=== PATIENT | female | born 1945 | race Caucasian/White ===

== ENCOUNTER → 2019-10-15 14:46 | Outpatient (BNVA) | payer MEDICARE, SELFPAY | PROVIDERS: Family Provider Family Medicine; PCP Family Medicine; Visit Provider Nurse Practitioner | DX: M54.9 Dorsalgia, unspecified (principal); M62.838 Other muscle spasm; Z79.891 Long term (current) use of opiate analgesic | CPT/HCPCS: 99213 ==

== ENCOUNTER → 2019-12-19 13:50 | Outpatient (BNVA) | payer MEDICARE, SELFPAY | PROVIDERS: Family Provider Family Medicine; PCP Family Medicine; Visit Provider Anesthesiology | DX: Z76.89 Persons encountering health services in other specified circumstances (principal) | CPT/HCPCS: 99213 ==

== ENCOUNTER → 2020-03-12 14:18 | Outpatient (BNVA) | payer MEDICARE, SELFPAY | PROVIDERS: Family Provider Family Medicine; PCP Family Medicine; Visit Provider Anesthesiology | DX: M54.5 Low back pain (principal); M54.9 Dorsalgia, unspecified; M47.22 Other spondylosis with radiculopathy, cervical region; Z79.891 Long term (current) use of opiate analgesic | CPT/HCPCS: 99214 ==

== ENCOUNTER → 2020-05-14 10:51 | Outpatient (BNVA) | payer MEDICARE, SELFPAY | PROVIDERS: Family Provider Family Medicine; PCP Family Medicine; Visit Provider Nurse Practitioner | DX: M54.42 Lumbago with sciatica, left side (principal); M54.41 Lumbago with sciatica, right side; M54.9 Dorsalgia, unspecified; M47.22 Other spondylosis with radiculopathy, cervical region; M62.838 Other muscle spasm; Z79.891 Long term (current) use of opiate analgesic | CPT/HCPCS: 99213 ==

== ENCOUNTER → 2020-07-15 12:43 | Outpatient (BNVA) | payer MEDICARE, SELFPAY | PROVIDERS: Family Provider Family Medicine; PCP Family Medicine; Visit Provider Anesthesiology | DX: M47.22 Other spondylosis with radiculopathy, cervical region (principal); M54.9 Dorsalgia, unspecified; Z79.891 Long term (current) use of opiate analgesic | CPT/HCPCS: 99213; 99214 ==

== ENCOUNTER 2020-08-12 15:05 | Outpatient (CLI) | payer MEDICARE, SELFPAY ==
--- NOTE | 2020-08-12 15:10 | XR_ITS ---
WS: [id number] SCREENING DEXA SCAN Your Office Agent CLINICAL INFORMATION: ASYMPTOMATIC MENOPAUSAL STATE COMPARISON: FINDINGS: The L1-L4 bone mineral density measures 1.590 g/cm2. This corresponds to a T score score of 3.4 and Z score of 4.8. Left femoral neck bone mineral density measures 1.343 g/cm2. This corresponds to a T score of 2.7 and Z score of 4.0. Right femoral neck bone mineral density measures 1.314 g/cm2. This corresponds to a T score 2.4of and Z score of 3.8. Mean femoral neck bone mineral density measures 1.328 g/cm2. This corresponds to a T score of 2.5 and Z score of 3.9. XR/XR DEXA axial skeleton* [id number] IMPRESSION: Normal bone mineralization. Patient's FRAX calculated 10 year probability for major osteoporotic fracture i s 5.5 % and osteoporotic hip fracture is 0.2%.
== END 2020-08-12 15:06 | disposition home or self-care (01) ==
LOC: RADWPI 15:09
PROVIDERS: PCP Family Medicine; Visit Provider Family Medicine
DX: Z78.0 Asymptomatic menopausal state (principal)
CPT/HCPCS: 77080

== ENCOUNTER → 2020-09-10 11:03 | Outpatient (BNVA) | payer MEDICARE, SELFPAY | PROVIDERS: PCP Family Medicine; Visit Provider Nurse Practitioner | DX: M54.9 Dorsalgia, unspecified (principal); M47.22 Other spondylosis with radiculopathy, cervical region; Z79.899 Other long term (current) drug therapy; Z79.891 Long term (current) use of opiate analgesic | CPT/HCPCS: 99213 ==

== ENCOUNTER 2020-09-15 10:49 | Outpatient (CLI) | payer MEDICARE, SELFPAY ==
--- NOTE | 2020-09-15 10:53 | MM_ITS ---
WS: [id number] SCREENING DIGITAL MAMMOGRAM WITH CAD HISTORY: SCREENING COMPARISON: 09/12/2019 and 08/08/2018 Bilateral CC and MLO views submitted. Computer aided detection analyzed. Breast composition: There are scattered areas of fibroglandular density. No suspicious masses, microc alcifications or architectural distortion. MM/[place] [id number] IMPRESSION: BI-RADS: 1-Negative FOLLOW UP: 1 Year Follow-up
== END 2020-09-15 10:50 | disposition home or self-care (01) ==
LOC: RADSHAW 10:51
PROVIDERS: PCP Family Medicine; Visit Provider Family Medicine
DX: Z12.31 Encounter for screening mammogram for malignant neoplasm of breast (principal)
CPT/HCPCS: 77067

== ENCOUNTER → 2020-10-16 15:23 | Outpatient (BNVA) | payer MEDICARE, SELFPAY | PROVIDERS: PCP Family Medicine; Visit Provider Nurse Practitioner Family | DX: Z20.828 Contact with and (suspected) exposure to other viral communicable diseases (principal) | CPT/HCPCS: 87635 ==

== ENCOUNTER → 2020-11-12 10:59 | Outpatient (BNVA) | payer MEDICARE, SELFPAY | PROVIDERS: PCP Family Medicine; Visit Provider Nurse Practitioner | DX: M62.838 Other muscle spasm (principal); M47.22 Other spondylosis with radiculopathy, cervical region; M54.9 Dorsalgia, unspecified; Z79.899 Other long term (current) drug therapy; Z79.891 Long term (current) use of opiate analgesic | CPT/HCPCS: 99212; 99213 ==

== ENCOUNTER 2020-11-15 04:10 | Inpatient (IN) | payer MEDICARE, SELFPAY ==
[2020-11-15] VITALS (81 sets, daily range): BP systolic 81–153; BP diastolic 43–108; PULSE 58–80; RESP 10–30; TEMP 35.9–37.2; O2SAT 85–95; BMI 29.7
--- NOTE | 2020-11-15 04:15 | XR_ITS ---
WS: [id number] Exam: XR chest 1V portable [id number] Date/Time of Exam: 11/15/2020 6:20 AM Reason For Exam: cp Comparison 07/06/2017. Probable small left pleural effusion. The lungs are clear and fully inflated. Heart size is normal fo r AP technique. The mediastinum and bony thorax are unremarkable. XR/XR chest 1V portable [id number] IMPRESSION: 1. Oval small left pleural effusion. No other significant finding.
--- NOTE | 2020-11-15 04:17 | ECG_ITS ---
[facility] Test Date: 2020-11-15 Pat Name: Bernice Diez Department: Room: 104 Gender: Female Banquet Set Up Person: : 1945 Requested By: Hank Galan Order Number: [id number] Ryan MD: Patricia Ramos M.D. Measurements Intervals Pride Rate: 64 P: 63 OR: 225 QRS: 75 QRSD: 109 T: 91 QT: 433 QTc: 447 Interpretive Statements SINUS RHYTHM WITH FIRST DEGREE AV BLOCK LOW QRS VOLTAGE IN PRECORDIAL LEADS [QRS DEFLECTION < 1.0 mV IN CHEST LEADS] PROBABLE LATERAL MYOCARDIAL INFARCTION , OF INDETERMINATE AGE [35 ms Q WAVE IN I/aVL/V5/V6] INFERIOR MYOCARDIAL INFARCTION , OF INDETERMINATE AGE No previous ECG available for comparison Electronically Signed On 11-15-2020 12:39:39 TEAM LEADER by Patricia Ramos M.D. [id number]
[2020-11-15] MEDS: morphine 4 mg/mL SDV 1 mL IVP (04:22)
--- NOTE | 2020-11-15 04:22 | W.ED.CHESTPA ---
HPI - Chest Pain General: Chief Complaint: Chest Pain Stated Complaint: CP Time Seen by Provider: 11/15/20 04:15 History of Present Illness: HPI narrative: 75-year-old female presents from home by EMS. She has no prior history of coronary disease or diabetes. Began to have chest pressure around 1900 last night. This was at rest. She thought it was indigestion, and took some antacids. It seemed to go away for a while, but then came back. Pain worsened over the course of the evening out of concern she called EMS. On arrival she complained of significant chest pressure at home. She was given nitroglycerin by EMS, which resolved her pain for a short time. Pain was beginning to return on arrival here. She denies shortness of breath. She did get nauseated one time, no vomiting. No diaphoresis. No radiation of the pain. She has not had pain like this before. Associated symptoms: Reports nausea; Deny abdominal pain, dyspnea, fever(s), palpitations or vomiting Review of Systems Const: Denies: fever(s) or chills Eyes: Denies: change in vision ENMT: Denies: odynophagia, swelling of lips/tongue, post nasal drip or sinus pain Card: Reports: chest pain; Denies: palpitations, irregular heart rhythm, edema or swelling of feet/ankles Resp: Denies: dyspnea, productive cough, non-productive cough or wheezing GI: Reports: nausea; Denies: abdominal pain or vomiting : Denies: dysuria or hematuria Musc: Reports: back pain; Denies: neck pain or joint warmth Skin/Breast: Denies: rash or erythema Neuro: Denies: headache(s), dizziness or vertigo Psych: Denies: anxiety PFSH ED PFSH: Medical History Arthralgia, lumbar spine Encounter for long-term opiate analgesic use Long-term use of high-risk medication Surgical History History of suburethral sling procedure DR KRAMER 02/06/18 PORCINE GRAFT S/P cataract extraction S/P cholecystectomy S/P colectomy S/P total hysterectomy S/P tubal ligation Family History Mother Cancer LIVER CANCER Other Diabetes Hypertension Stroke Social History Smoking and tobacco status: former smoker Second hand smoke exposure: No Alcohol intake: never History of recent travel: No Female Reproductive History: Spontaneous abortions: No Physical Exam Const: GENERAL APPEARANCE: well developed ORIENTATION/CONSCIOUSNESS: Yes oriented to person, Yes oriented to place and Yes oriented to time HENMT: COMMON NORMALS: normocephalic, external ears normal and Normal external nose present HEAD & SCALP: normocephalic FACE & SINUS: normal facial exam NOSE: Normal external nose present and No nasal discharge present EXTERNAL EAR: Yes external ears normal MOUTH: tongue normal Eye: COMMON NORMALS: Equal, round and reactive pupils present, EOMs intact bilaterally and conjunctivae normal EYELID: eyelids normal CONJUNCTIVA: Yes conjunctivae normal PUPIL: Yes Equal, round and reactive pupils present Neck/C-Spine: GENERAL: No tracheal deviation Chest: COMMONS NORMALS: normal inspection of the chest CHEST: No tenderness Resp: COMMON NORMALS: clear to auscultation bilaterally EFFORT & INSPECTION: No tachypneic, No respiratory distress, No retractions, No uses accessory muscles and No tracheal deviation AUSCULTATION: clear to auscultation bilaterally, no rhonchi, no wheezes and lung sounds not diminished Cardio: COMMON NORMALS: regular rate and regular rhythm RATE: regular rate RHYTHM: regular rhythm HEART SOUNDS: no murmurs PERIPHERAL PULSES: radial pulses present GI: INSPECTION: No abdominal distension AUSCULTATION: No Hyperactive bowel sounds present and No Hypoactive bowel sounds present PALPATION: No Guarding due to palpation present (GI) and No Rigid due to palpation PERCUSSION: no dullness to percussion and no tympanic to percussion Neuro: SENSORIUM/ORIENTATION: Yes oriented to person, Yes oriented to place and Yes oriented to time Psych: COMMON NORMALS: mental status grossly normal Skin: COMMON NORMALS: no rashes or lesions noted GENERAL SKIN EXAM: no rashes or lesions noted Course Vital Signs: Vital signs: Vital Signs Temperature 97.8 F 11/15/20 04:13 Pulse Rate 66 11/15/20 04:30 Respiratory Rate 18 11/15/20 04:22 Blood Pressure 112/57 11/15/20 04:30 Pulse Oximetry 95 11/15/20 04:30 MDM - Chest Pain MDM Narrative: Medical decision making narrative: EKG from the field showed mild ST elevation in 2 3 aVF with reciprocal changes in lead I and aVL. This persisted on EKG on her arrival in the ER. STEMI alert was called from the field by EMS. Protocols were followed. The patient received heparin 4000 units, Brilinta 180 mg, and had received aspirin in the field. Her pain was starting to return, but morphine and nitroglycerin paste resolve the pain. Cardiology has evaluated the patient in the ER, and determined to take the patient onto the Billing And Accounting Staff Assistant. Lab Data: Labs: Lab Results 11/15/20 11/15/20 11/15/20 Range/Units 03:56 03:56 03:56 WBC 7.8 (4.0-10.0) 10^3/ uL RBC 5.19 (4.1-5.3) 10^6/u L Hgb 14.0 (11.5-15.3) g/dL Hct 45.1 (37.0-47.0) % MCV 86.9 (81-99) fL MCH 27.0 L (28.0-34.0) pg MCHC 31.0 (30.0-36.0) g/dL RDW 13.8 (12.1-15.1) % Plt Count 235 (130-400) 10^3/c mm MPV 10.0 (7.4-10.4) fL Neut % (Auto) 77.2 % Lymph % (Auto) 14.2 % Dubois % (Auto) 5.9 % Eos % (Auto) 1.7 % Baso % (Auto) 0.6 % Neut # (Auto) 6.01 (1.8-7.7) 10^3/u L Lymph # (Auto) 1.1 (0.8-4.8) 10^3/u L Dubois # (Auto) 0.5 (0.2-0.9) 10^3/u L Eos # (Auto) 0.1 (0.0-0.8) 10^3/u L Baso # (Auto) 0.1 (0.0-0.1) 10^3/u L Nucleated RBC % (a uto) 0 % Nucleated RBCs # 0.0 /100WBC PT 13.40 (12.1-14.9) SECO NDS INR 0.99 (0.8-1.2) APTT 24.0 (23.9-36.7) SECO NDS Sodium 136 (136-145) mmol/L Chloride 99 (98-107) mmol/L Carbon Dioxide 28 (22-29) mmol/L BUN 11 (8-23) mg/dL Creatinine 0.7 (0.5-0.9) mg/dL GFR Calculation Not Reportable Glucose 218 H (65-115) mg/dL Calculated Osmolal ity 288 (285-295) mOsm/k g Calcium 9.0 (8.5-10.5) mg/dL Total Bilirubin 0.5 (0.15-1.2) mg/dL ALT 14 (0-33) U/L Alkaline Phosphata se 91 (35-105) IU/L Troponin T Baselin e (0-10) ng/L NT-Pro-B Natriuret Pep 99 (0-125) pg/mL Total Protein 7.0 (6.6-8.7) g/dL Albumin 3.9 (3.5-5.2) g/dL Globulin 3.1 (1.3-4.6) g/dL 11/15/20 Range/Units 03:56 WBC (4.0-10.0) 10^3/ uL RBC (4.1-5.3) 10^6/u L Hgb (11.5-15.3) g/dL Hct (37.0-47.0) % MCV (81-99) fL MCH (28.0-34.0) pg MCHC (30.0-36.0) g/dL RDW (12.1-15.1) % Plt Count (130-400) 10^3/c mm MPV (7.4-10.4) fL Neut % (Auto) % Lymph % (Auto) % Dubois % (Auto) % Eos % (Auto) % Baso % (Auto) % Neut # (Auto) (1.8-7.7) 10^3/u L Lymph # (Auto) (0.8-4.8) 10^3/u L Dubois # (Auto) (0.2-0.9) 10^3/u L Eos # (Auto) (0.0-0.8) 10^3/u L Baso # (Auto) (0.0-0.1) 10^3/u L Nucleated RBC % (a uto) % Nucleated RBCs # /100WBC PT (12.1-14.9) SECO NDS INR (0.8-1.2) APTT (23.9-36.7) SECO NDS Sodium (136-145) mmol/L Chloride (98-107) mmol/L Carbon Dioxide (22-29) mmol/L BUN (8-23) mg/dL Creatinine (0.5-0.9) mg/dL GFR Calculation Glucose (65-115) mg/dL Calculated Osmolal ity (285-295) mOsm/k g Calcium (8.5-10.5) mg/dL Total Bilirubin (0.15-1.2) mg/dL ALT (0-33) U/L Alkaline Phosphata se (35-105) IU/L Troponin T Baselin e 16 H (0-10) ng/L NT-Pro-B Natriuret Pep (0-125) pg/mL Total Protein (6.6-8.7) g/dL Albumin (3.5-5.2) g/dL Globulin (1.3-4.6) g/dL Critical Care Time Critical Care Time: Critical Care Time: Yes Total Critical Care Time: 30 Attestation: This case had a high probability of a clinically significant, sudden, or life threatening deterioration of this patient's condition which required my full and direct attention, intervention and personal management. Discharge Plan Discharge Patient Disposition: Admitted As Inpatient Clinical Impression: Chest pain Qualifiers: Chest pain type: precordial pain Qualified Code(s): R07.2 - Precordial pain ST elevation myocardial infarction (STEMI) Qualifiers: Involved coronary artery: unspecified coronary artery Qualified Code(s): I21.3 - ST elevation (STEMI) myocardial infarction of unspecified site Condition: Stable Coding Level of Care Code ED Entrance Guard for Chalo Fwd Exam Comprehensive
[2020-11-15] MEDS: ondansetron 2 mg/ML SDV 2 mL 4 MG IVP (04:23)
[2020-11-15 04:24] LABS: Basophils # 0.1 10^3/uL (0.0-0.1); Basophils % 0.6 %; Eosinophils # 0.1 10^3/uL (0.0-0.8); Eosinophils % 1.7 %; Hematocrit 45.1 % (37.0-47.0); Lymphocytes # 1.1 10^3/uL (0.8-4.8); Lymphocytes % 14.2 %; Mean Corpuscular Volume 86.9 fL (81-99); Monocytes # 0.5 10^3/uL (0.2-0.9); Monocytes % 5.9 %; Neutrophils # 6.01 10^3/uL (1.8-7.7); Neutrophils % 77.2 %; Nucleated Red Blood Cells % 0 %; Platelet Count 235 10^3/cmm (130-400); Red Blood Count 5.19 10^6/uL (4.1-5.3); Red Cell Distribution Width 13.8 % (12.1-15.1); White Blood Count 7.8 10^3/uL (4.0-10.0)
[2020-11-15] MEDS: heparin 5,000 unit/mL INJ 1 mL 4000 UNIT IVP (04:24)
[2020-11-15] MEDS: nitroglycerin 1 gm/inch oint Pkt 1 INCH TOPICAL (04:26)
[2020-11-15] MEDS: ticagrelor 90 mg Tablet 180 MG PO (04:27)
[2020-11-15 04:33] LABS: INR 0.99 (0.8-1.2)
--- NOTE | 2020-11-15 04:36 | XACV_ITS ---
Ht: 163 cm Wt: 78 kg BSA: 1.91 m2 Gender: Female : 1945 Exam Priority: Routine Procedure(s): Procedure Description: Diagnostic procedure Procedure Description: Left Heart Catheterization Procedure Description: Right Heart Catheterization Procedure Description: Primary percutaneous coronary intervention of RCA MD SHRUTI BERMEO; Diagnostic Cath Status: Emergency Diagnostic Findings * LM has luminal irregularities. * LAD has diffuse luminal irregularities. It has mid vessel moderate 50-60 % stenosis. * CX has minor luminal irregularities. * Ostial RCA has a 70% stenosis with significant dampening of pressures with both diagnostic and guide catheter. Ostial Right Coronary Artery: Moderate 70% stenosis, LISA: 2flow. * Mid Right Coronary Artery: Severe 100% stenosis, LISA: 0 flow. Total thrombotic occlusion. Cultprit lesion for acute ST elevation SC. * Coronary angiography shows right dominance. PCI Status: Emergency PCI Indication: STEMI - Immediate PCI for STEMI Interventional Findings * We engaged RCA with JR4 guide catheter. IV heparin was administered to maintain an ACT above 250 seconds. A 0.014 run-through guidewire was used to cross the stenosis in mid RCA. We predilated the stenosis with a 2.5 x 12 mm semicompliant balloon. This established some flow. This was followed by placement of a 2.75 x 30 mm resolute [place] drug-eluting stent in mid RCA. We then placed a second stent measuring 2.75 x 22 mm resolute [place] drug-eluting stent from ostial to proximal RCA. At this time angiogram showed ostial pinching of the RV marginal branch from mid RCA stent. Wire was used to cross into this vessel. We then dilated the ostium of RV marginal branch with a 2.5 x 12 mm semicompliant balloon. Final angiogram was performed that showed excellent stent expansion, no residual stenosis and LISA-3 flow. Guidewire and guide catheters were removed and TR band was applied to achieve hemostasis. Patient left the analytical lab analyst in a stable condition.. * Proximal Right Coronary Artery: 70% stenosis treated with MDT R IVAN 2.75X22 CHANI. 0% residual stenosis, LISA: 3 flow. * Mid Right Coronary Artery: 100% stenosis treated with Balloon and MDT R IVAN 2.75X30 CHANI. 0% residual stenosis, LISA: 3 flow. Conclusions 1. There is total thrombotic occlusion of the mid RCA and severe stenosis of ostial to proximal RCA with severe dampening of pressures with engagement. 2. Proximal Right Coronary Artery was treated with Drug Eluting Stent. 3. Mid Right Coronary Artery was treated with Balloon and Drug Eluting Stent. Recommendations * Admit to CSU. * Aspirin and brilinta for atleast 1 year. * Order echocardiogram. * High intensity statin therapy, beta blockers and Lisinopril. * Cardiac rehab. * Outpatient follow up with cardiology. Interventional RX Recommendation: PCI w/o planned CABG Diagnostic RX Recommendation: PCI w/o planned CABG Anticoagulation: Heparin Pressures Phase:Rest AO : 109 / 49 ( 74 ) @ 11:07:00 PM 115 / 49 ( 75 ) @ 11:41:00 PM LV : 116 / 2 / @ 11:41:00 PM 112 / 1 / @ 11:41:00 PM Valves Phase:DefaultPhase AV : 0.0 @ 5:47:07 AM AV Mean Gradient: 0.0 @ 5:47:07 AM Clinical Evaluation EBL: 5mL-10mL Procedural Details Pre-Procedure Time Out. Identified patient by full name and date of as verbalized by the patient/guarantor. Does the consent match the physician's order: N/A Emergent; Informed Consent not obtained due to time critical life threat. Accurate & Complete Informed Consent: N/A Emergent; Informed Consent not obtained due to time critical life threat. Inpatient/Outpatient History & Physical on Chart: N/A Emergent; Informed Consent not obtained due to time critical life threat. If H&P is completed, is and addenduem needed: N/A Emergent; Informed Consent not obtained due to time critical life threat; If yes, is the addendum complete: N/A Emergent; Informed Consent not obtained due to time critical life threat. Visualize and Verify Site with Patient/Guarantor: N/A. Relevant Radiology Images available: N/A Emergent; Informed Consent not obtained due to time critical life threat. Pre-op teaching completed and patient verbalized understanding. The risks, benefits, and alternatives of sedation and/or procedure were discussed by physician. The patient agrees to continue. Procedure started. Correct patient, site and procedure confirmed by cath team. Current diagnosis: STEMI. PERRLA. Strong, equal hand cooperative extension agent bilaterally. Lungs clear x 5 lobes. IV Site on Arrival: 18 gauge in the right anticubital. IV Fluids: 0.9% NaCl at KVO. 0 mL infused prior to analytical lab analyst. IV Site on Arrival: 18 gauge in the left anticubital. Oxygen started at 2liters/min via nasal canula. right groin was prepped with chloroprep then draped in the usual sterile fashion. right radial was prepped with chloroprep then draped in the usual sterile fashion. Physician notified. Baseline sample Acquired. HR: 61 BPM. Equipment: 6F - Radial. Cardiac Cath Pack. ACIST Manifold Kit Model BT 2000. Heparinized Saline (2 units/mL), 1000 mL bag. Physician arrived. Physician scrubbed in. Immediate Pre-Procedure Time Out. Correct Patient: Yes; Correct Procedure: Yes; Correct Site: Yes; Correct Patient Position: Yes; Correct Supplies: Yes; Dried Flammable Prep: Yes; Blood Products Available: N/A Emergent; Informed Consent not obtained due to time critical life threat;. Lidocaine 1% infiltrated to the right radial. Arterial access obtained. A 5 cook islander TIG catheter in over wire. Multiple views taken of left coronary artery. Catheter redirected to the RCA. Multiple views taken of right coronary artery. Catheter out. 6 cook islander JR 4 guide catheter was inserted over the wire. [place] guidewire was advanced through the guide catheter to lesion in the mid RCA. Balloon inserted to lesion in the mid RCA. Inflation number : 1 A AB TREK 2.50X12 RX BALLOON was prepped and advanced across the Mid RCA , then inflated to 12 LYDIA for 0:17 seconds. Inflation number: 2 The AB TREK 2.50X12 RX BALLOON was reinflated across the Mid RCA, to 12 LYDIA for 0:15 seconds. Balloon out. fluids open. low heart rate. Stent inserted to lesion in the mid RCA. Inflation Number : 3 A MDT R IVAN 2.75X30 CHANI -Lot Number# [id number] was prepped and advanced across the Mid RCA. The stent was deployed at 12 LYDIA for 0:16 seconds exp. 2022-06-22. Results checked. Stent balloon out over wire. Stent inserted to lesion in the prox RCA. Inflation Number : 1 A MDT R IVAN 2.75X22 CHANI -Lot Number# [id number] was prepped and advanced across the Prox RCA. The stent was deployed at 12 LYDIA for 0:23 seconds. exp date 2022-07-26. Stent balloon out over wire. Results checked. Balloon inserted to lesion in the PLV. Inflation number : 1 A AB TREK 2.50X12 RX BALLOON was prepped and advanced across the 1st RPL , then inflated to 12 LYDIA for 0:10 seconds. Results checked. Inflation number: 2 The AB TREK 2.50X12 RX BALLOON was reinflated across the 1st RPL, to 12 LYDIA for 0:11 seconds. Results checked. Inflation number: 3 The AB TREK 2.50X12 RX BALLOON was reinflated across the 1st RPL, to 12 LYDIA for 0:08 seconds. Balloon out. Wire out. Guide catheter out. A 5 cook islander Angled Pig catheter in over wire. EDP Sample taken: LV 116/2,20; HR: 79 BPM; SpO2: 96%. Pullback taken: LV 112/1,18; AO 115/49(75); Mean: 0mmHg, Peak to Peak: 0mmHg, SEP: 8sec/min; HR: 75 BPM; SpO2: 96%. ACT drawn. Results 255 seconds. Therapeutic limits - pre-heparin administration 90-150 seconds and monitoring heparin during a vascular procedure >250 seconds. Catheter out. Physician scrubbed out. TR band placed. Hemostasis obtained. Post Procedure: Pulses reassessed and unchanged. A 16Fr marquez catheter was inserted without resistance maintaining sterile technique. Bag to gravity with clear urine returning. PERRLA. Strong, equal hand cooperative extension agent bilaterally. No VTE prophylaxis required. Medication's Wasted: Lidocaine 1% = 10 mL. Medication's Wasted: Nitro = 49.83 mg. Medication's Wasted: Other = versed 1 mg. Medication's Wasted: Other = atropine 0.5 mg. Total IV fluids: 500 mL. PCI Indication: STEMI. Complications: none. Post-op diagnosis: stemi rca. Estimated blood loss: 5mL-10mL. Procedure completed. Patient transferred by wheelchair to 1st floor. Vital chart was stopped. Access Site Site: Right Radial artery Sheath Size: 6 Fr Hemostasis Success: Unsuccessful Procedure Medications Start: 5:01 AM Stop: 5:01 AM Medication: Versed Amount: 1 mg Route: I.V. Start: 5:03 AM Stop: 5:03 AM Medication: Nitrogylcerin Amount: 200 mcg Route: I.A. Start: 5:04 AM Stop: 5:04 AM Medication: Fentanyl Amount: 50 mcg Route: I.V. Start: 5:09 AM Stop: 5:09 AM Medication: Heparin Amount: 6000 units Route: I.V. Start: 5:09 AM Stop: 5:09 AM Medication: Versed Amount: 1 mg Route: I.V. Start: 5:16 AM Stop: 5:16 AM Medication: Atropine Amount: 1 mg Route: I.V. Start: 5:19 AM Stop: 5:19 AM Medication: 0.9% Saline Amount: 250 ml Route: I.V. bolus Start: 5:35 AM Stop: 5:35 AM Medication: 0.9% Saline Amount: 500 ml Route: I.V. bolus I, the attending physician, have reviewed and verified all procedure medications. Yes, all medications given per verbal order Report Signatures Finalized by Shruti Bermeo MD on 11/21/2020 03:40 PM
[2020-11-15 04:41] LABS: Troponin(5th) Baseline 16 ng/L (0-10)
[2020-11-15 04:47] LABS: Slide Review Slide Review Perform
[2020-11-15 04:50] LABS: Alanine Aminotransferase 14 U/L (0-33); Albumin Level 3.9 g/dL (3.5-5.2); Alkaline Phosphatase 91 IU/L (35-105); Blood Urea Nitrogen 11 mg/dL (8-23); Carbon Dioxide 28 mmol/L (22-29); Chloride 99 mmol/L (98-107); Globulin 3.1 g/dL (1.3-4.6); Glucose 218 mg/dL (65-115); NT Pro B Type Natriuretic Pept 99 pg/mL (0-125); Osmolality Calculated 288 mOsm/kg (285-295); Sodium 136 mmol/L (136-145); Total Bilirubin 0.5 mg/dL (0.15-1.2)
[2020-11-15 04:52] LABS: Aspartate Amino Transferase 20 U/L (0-32)
--- NOTE | 2020-11-15 05:52 | PM.HP ---
Providers/Chief Complaint Primary Care Provider: Ofelia Rodriguez MD Chief Complaint: CP History of Present Illness Bernice Diez is a 75 year old female with past medical history of arthritis, history of tobacco abuse and GERD started noticing heartburn at 7 PM last night. It continued on and off. She briefly went to sleep and then woke up with severe pressure and heartburn. She called EMS. They performed EKG that showed inferior leads ST elevation. STEMI was activated from the field and patient was brought to the hospital. She was emergently taken to [facility] and coronary angiography was performed. It showed total thrombotic occlusion of mid RCA and severe disease of ostial RCA. She also had moderate disease of LAD. RCA went successful revascularization with CHANI x2. She left the [facility] in a stable condition. Review of Systems Const: Denies: fever(s) or chills Eyes: Denies: change in vision ENMT: Denies: odynophagia, swelling of lips/tongue, post nasal drip or sinus pain Card: Reports: chest pain; Denies: palpitations, irregular heart rhythm, edema or swelling of feet/ankles Resp: Denies: dyspnea, productive cough, non-productive cough or wheezing GI: Reports: nausea; Denies: abdominal pain or vomiting : Denies: dysuria or hematuria Musc: Reports: back pain; Denies: neck pain or joint warmth Skin/Breast: Denies: rash or erythema Neuro: Denies: headache(s), dizziness or vertigo Psych: Denies: anxiety Medications/Allergies Home Medications Medication Instructions Recorded Confirmed Last Taken Type aspirin 81 mg chewable tablet 81 mg PO QDAY 10/14/19 11/15/20 11/14/20 08:00 History biotin 1,000 mcg chewable tablet 1,000 mcg PO QDAY 10/14/19 11/15/20 11/14/20 08:00 History duloxetine 30 mg capsule,delayed 30 mg PO QDAY 10/14/19 11/15/20 11/14/20 08:00 History release multivit with minerals-iron 18 1 tab PO DAILY tab 10/14/19 11/15/20 11/14/20 08:00 History mg-folic ac 400 mcg-vit K 25 mcg tablet potassium chloride 10 mEq 10 meq PO QDAY 10/14/19 11/15/20 11/14/20 08:00 History tablet,extended release vitamins A,C,H-hzdg-ldftsd 14,320 1 cap PO BID 10/15/19 11/15/20 11/14/20 08:00 History unit-226 mg-200 unit capsule baclofen 10 mg tablet 10 mg PO DAILY PRN 90 Days #90 tab 11/12/20 11/15/20 11/14/20 08:00 Rx hydrocodone 5 mg-acetaminophen 325 1 tab PO TID PRN 30 Days #90 tab 11/12/20 11/15/20 11/14/20 21:00 Rx mg tablet omeprazole 20 mg capsule,delayed 20 mg PO DAILY 11/12/20 11/15/20 11/14/20 08:00 History release tizanidine 4 mg tablet 4 mg PO .HS PRN 90 Days #90 tab 11/12/20 11/15/20 11/14/20 21:00 Rx Allergies Allergy/AdvReac Type Severity Reaction Status Date / Time No Known Allergies Allergy Verified 11/12/20 11:02 PFSH Acute PFSH: Medical History Arthralgia, lumbar spine Encounter for long-term opiate analgesic use Long-term use of high-risk medication Surgical History History of suburethral sling procedure DR KRAMER 02/06/18 PORCINE GRAFT S/P cataract extraction S/P cholecystectomy S/P colectomy S/P total hysterectomy S/P tubal ligation Family History Mother Cancer LIVER CANCER Other Diabetes Hypertension Stroke Social History Smoking and tobacco status: former smoker Second hand smoke exposure: No Alcohol intake: never History of recent travel: No Female Reproductive History: Spontaneous abortions: No Vitals/I&O/Wt Last Vital Signs Temp 97.8 F 11/15/20 04:13 Pulse 66 11/15/20 04:30 Resp 18 11/15/20 04:22 BP 112/57 11/15/20 04:30 Pulse Ox 95 11/15/20 04:30 Weight last 48 hrs Weight 173 lb Physical Exam Narrative: EXAM NARRATIVE: GENERAL: Patient is alert, awake and oriented x3. [] NECK: No jugular vein distension. [] HEENT: No cyanosis. No icterus. No pallor. [] HEART: Regular S1 and S2. No murmur, rub or gallop. [] LUNGS: Clear to auscultate bilaterally. [] ABDOMEN: Soft, nontender and nondistended. Positive bowel sounds. No guarding, rebound or tenderness. [] CENTRAL NERVOUS SYSTEM: Grossly nonfocal. [] EXTREMITIES: Lower extremities with 1+ edema bilaterally. Pulses palpable in the lower extremities, both dorsalis pedis and posterior tibial. [] Data : 11/16/20 03:30 11/16/20 03:30 A&P Assessment and plan (1) ST elevation myocardial infarction (STEMI): Status: Acute Qualifiers: Involved coronary artery: unspecified coronary artery Qualified Code(s): I21.3 - ST elevation (STEMI) myocardial infarction of unspecified site (2) Arthralgia, lumbar spine: Status: Chronic Patient had presented with acute inferior wall ST elevation [place]. She underwent successful revascularization with CHANI x2. She has residual moderate disease in the LAD that will be assessed with an outpatient stress test. Admit to CSU Continue aspirin and Brilinta. High intensity statin therapy Beta-blockers and lisinopril. Order echocardiogram. Patient will need cardiac rehab as outpatient. We will check lipid profile. Attestations Medical Necessity Statement*: Care expected to cross 2 midnights. Patient presented with acute ST elevation [place] and underwent successful revascularization with CHANI x2. Coding Level of Care Code Acute Coding Director for Chalo Barksdale Diagnoses ST elevation myocardial infarction (STEMI) I21.3 Involved coronary artery: unspecified coronary artery Arthralgia, lumbar spine M54.5
--- NOTE | 2020-11-15 06:01 | USCV_ITS ---
Bernice Diez Age: 75 Gender: F : 1945 Exam Date: 11/15/2020 09:19 Ordering Phys: Boogie Carbone M.D ([email or web address]) Technologist: Rick Yan Exam Location: [facility] Indication: STEMI BP: 128 / 60 HR: 71 Rhythm: Sinus Technical Quality: Difficult MEASUREMENTS (Male / Female) Normal Values 2D ECHO LV Diastolic Diameter PLAX 4.6 cm 4.2 - 5.9 / 3.9 - 5.3 cm LV Systolic Diameter PLAX 2.2 cm IVS Diastolic Thickness 1.2 cm 0.6 - 1.0 / 0.6 - 0.9 cm IVS Systolic Thickness 1.7 cm LVPW Diastolic Thickness 1.0 cm 0.6 - 1.0 / 0.6 - 0.9 cm LVPW Systolic Thickness 1.5 cm LVOT Diameter 2.0 cm LV Ejection Fraction 2D Teich 83.9 % LV Ejection Fraction MOD 2C 71.5 % LV Ejection Fraction 2C AL 71.3 % LA Diameter 3.4 cm LA Width 3.9 cm LA Height 4.3 cm RA Width 3.5 cm RA Height 5.0 cm M-MODE LV Diastolic Diameter MM 5.3 cm 4.2 - 5.9 / 3.9 - 5.3 cm LV Systolic Diameter MM 2.9 cm LV Ejection Fraction MM Teich 76.4 % IVS Diastolic Thickness MM 1.1 cm 0.6 - 1.0 / 0.6 - 0.9 cm IVS Systolic Thickness MM 1.4 cm LVPW Diastolic Thickness MM 1.1 cm 0.6 - 1.0 / 0.6 - 0.9 cm LVPW Systolic Thickness MM 2.0 cm RV Diastolic Diameter MM 1.4 cm Aortic Annulus Diameter 2.8 cm LA Ao Ratio MM 1.3 MV E Point Septal Separation 0.6 cm DOPPLER AV Peak Velocity 169.0 cm/s LVOT Peak Velocity 102.0 cm/s AV Area Cont Eq vti 2.4 cm squared AV Area Cont Eq pk 2.0 cm squared MV Area PHT 5.0 cm squared Mitral E to A Ratio 0.8 MV E' Velocity 49.0 cm/s Mitral E to MV E' Ratio 12.1 Mitral E to LV E' Lateral Ratio 10.8 Mitral E to LV E' Septal Ratio 13.7 TR Peak Velocity 273.0 cm/s TR Peak Gradient 29.8 mmHg TV Peak E Velocity 87.0 cm/s Right Atrial Pressure 3.0 mmHg Pulmonary Artery Systolic Pressu 32.8 mmHg PV Peak Velocity 88.0 cm/s FINDINGS Left Ventricle Normal left ventricular size LV systolic function is normal with EF of 55-60%. No gross regional motion abnormalities.Grade 1 diastolic dysfunction Right Ventricle The right ventricle is normal in size and function. Right Atrium The right atrium is normal in size. Left Atrium The left atrium is normal in size. Mitral Valve Structurally normal mitral valve without significant stenosis or prolapse. There is mild mitral regurgitation. Aortic Valve Grossly normal. No significant aortic stenosis. There is no aortic regurgitation. Tricuspid Valve Structurally normal tricuspid valve without significant stenosis or regurgitation. Insufficient TR jet to calculate RVSP Pulmonic Valve Not well visualized Pericardium Normal pericardium without effusion. Aorta Normal ascending aorta dimension. CONCLUSIONS LV systolic function is normal with EF of 55-60%. No gross regional wall motion abnormalities Grade 1 diastolic dysfunction is noted There is mild mitral regurgitation. No comparison studies are available. Boogie Carbone MD (Electronically Signed) Final Date: 15 November 2020 19:43 S
[2020-11-15] MEDS: sodium chloride 0.9% 1,000 ML 75 ML IV (06:09)
--- NOTE | 2020-11-15 06:17 | ECG_ITS ---
[facility] Test Date: 2020-11-15 Pat Name: Bernice Diez Department: Room: 104 Gender: Female Pediatric Oncologist: : 1945 Requested By: Hank Galan Order Number: [id number] Ryan MD: Boogie Carbone M.D. Measurements Intervals [place] Rate: 79 P: 206 CT: 214 QRS: 230 QRSD: 103 T: 137 QT: 410 QTc: 471 Interpretive Statements ECTOPIC ATRIAL RHYTHM WITH FIRST DEGREE AV BLOCK INCOMPLETE RIGHT BUNDLE BRANCH BLOCK [90+ ms QRS DURATION, TERMINAL R IN V1/V2, 40+ ms S IN I/aVL/V4/V5/V6] POSSIBLE RIGHT VENTRICULAR HYPERTROPHY [SOME/ALL OF: PROMINENT R IN V1, LATE TRANSITION, RAD, TRISTAN, SSS] INFERIOR MYOCARDIAL INFARCTION PROBABLY RECENT No previous ECG available for comparison Electronically Signed On 11-16-2020 17:53:22 FIELD CROP FARMER by Boogie Carbone M.D. [id number] f
--- NOTE | 2020-11-15 06:22 | PC.NURSE ---
Patient received from flue dust laborer. Patient is s/p [facility] with PCIx2. TR band in place to right wrist. No s/s of bleeding or hematoma formation observed. Right wrist is pink with palpable pulse. Patient denies pain to site. Patient does report chest discomfort /10. Reassured patient that some pain was normal after this procedure. Patient verbalized understanding. PRN Xanax administered as ordered by LONDON Gallardo. Admission completed as documented. Med rec complete.
[2020-11-15] MEDS: ALPRAZolam 0.25 mg Tablet PO (06:29)
[2020-11-15 08:38] LABS: Troponin 5 2HR 452.3 ng/L (0-10); Troponin 5 2HR Delta 436.3 ABS# (0-10)
[2020-11-15] MEDS: aspirin 81 mg EC Tablet PO (08:49)
[2020-11-15] MEDS: potassium chloride ER 10 mEq Tablet PO (08:49)
[2020-11-15] MEDS: duloxetine 30 mg Capsule PO (08:49)
[2020-11-15] MEDS: metoprolol tartrate 25 mg Tablet 12.5 MG PO ×2 (08:50→21:04)
--- NOTE | 2020-11-15 09:25 | PC.CHAP ---
Pastoral Care Encounter/Spiritual Assessment Type of Contact [] Declined safety attendant visit [] Patient/Family/Request visit [] Outpatient visit [] Follow-up visit [] Physician referral [] Code/Alert [x] Routine visit [] Staff referral [] Actively dying [] Patient sleeping [] Family support [] [] Out of room [] Palliative care [] [] Receiving care in room [] Pre-surgical visit [] Trauma [] Long length of stay [] ICU visit [] Other: Relational/Emotional Strength [] Patient feels connected with others/family/visitors/staff [] Distress [] Loneliness/isolation [] Abandonment Spirituality of Patient [] Person of Tigist [] Attends Sikh of their Tigist [] Believes in Prayer [] Reads Bible or Worship materials [] There are Spiritual issues to be addressed Computer Numerical Control Machinist Interventions [x] Prayer [x] Active listening [x] Non-anxious presence [x] Spiritual/emotional support [] Crisis/trauma care [] Spiritual counseling [] Bereavement support [] Provided bereavement packet [] Provided Bible/devotional materials [] Provided toy/stuffed animal, coloring book to patient or family member [] Provided Communion [] Anointing/Jewell [] Salvation [x] Completed spiritual assessment [] Other: Impact on Illness or Injury [] Angry [] Fearful [] Anxious [] Often cries [] Exhaustion [] Unable to work [] Unable to attend sikhism [] Unable to walk/stand [] Unable to read [] Unable to drive [] Unable to eat/drink [] Unable to sleep [] Unable to be with family [] Patient intubated [] Other: Summary patient received surgery... stints ... doing well Time spent with patient 10 min
--- NOTE | 2020-11-15 10:17 | ECG_ITS ---
[facility] Test Date: 2020-11-15 Pat Name: Bernice Diez Department: Room: 104 Gender: Female Family Support Worker: : 1945 Requested By: Hank Galan Order Number: [id number] Ryan MD: Patricia Ramos M.D. Measurements Intervals [place] Rate: 58 P: 59 [place]: 228 QRS: 82 QRSD: 98 T: 106 QT: 426 QTc: 422 Interpretive Statements SINUS BRADYCARDIA WITH SINUS ARRHYTHMIA WITH FIRST DEGREE AV BLOCK INDETERMINATE AXIS LOW QRS VOLTAGE IN PRECORDIAL LEADS [QRS DEFLECTION < 1.0 mV IN CHEST LEADS] INCOMPLETE RIGHT BUNDLE BRANCH BLOCK [90+ ms QRS DURATION, TERMINAL R IN V1/V2, 40+ ms S IN I/aVL/V4/V5/V6] POSSIBLE ANTERIOR MYOCARDIAL INFARCTION , PROBABLY OLD INFERIOR MYOCARDIAL INFARCTION , PROBABLY OLD MODERATE T-WAVE ABNORMALITY, CONSIDER LATERAL ISCHEMIA No previous ECG available for comparison Electronically Signed On 11-16-2020 6:12:23 TRAFFIC ROUTING ENGINEER by Patricia Ramos M.D. [id number] f
[2020-11-15 11:16] LABS: Troponin 5 6HR 1370 ng/L (0-10); Troponin 5 6HR Delta 1354 ng/L (0-12)
[2020-11-15] MEDS: ticagrelor 90 mg Tablet PO ×2 (12:16→18:44)
--- NOTE | 2020-11-15 12:30 | PC.NURSE ---
TR band removed per protocol no hematoma or outward events noted patient tolerated well
[2020-11-15] MEDS: atorvastatin 40 mg Tablet PO (21:04)
[2020-11-16] VITALS (27 sets, daily range): BP systolic 113–130; BP diastolic 43–56; PULSE 61–72; RESP 12–26; TEMP 35.9–37.6; O2SAT 86–94
[2020-11-16 03:57] LABS: Basophils % 0.3 %; Eosinophils # 0.2 10^3/uL (0.0-0.8); Eosinophils % 2.3 %; Hematocrit 41.3 % (37.0-47.0); Hemoglobin 12.9 g/dL (11.5-15.3); Mean Corpuscular HGB Conc 31.2 g/dL (30.0-36.0); Mean Corpuscular Hemoglobin 27.2 pg (28.0-34.0); Mean Corpuscular Volume 87.1 fL (81-99); Mean Platelet Volume 9.3 fL (7.4-10.4); Monocytes # 0.8 10^3/uL (0.2-0.9); Monocytes % 7.5 %; Neutrophils # 6.92 10^3/uL (1.8-7.7); Neutrophils % 69.5 %; Nucleated Red Blood Cells % 0 %; Platelet Count 287 10^3/cmm (130-400); Red Blood Count 4.74 10^6/uL (4.1-5.3); Red Cell Distribution Width 14.1 % (12.1-15.1)
[2020-11-16 04:18] LABS: Anion Gap 11.2 (5-19); Blood Urea Nitrogen 15 mg/dL (8-23); Calcium 8.7 mg/dL (8.5-10.5); Carbon Dioxide 30 mmol/L (22-29); Chloride 101 mmol/L (98-107); Glucose 136 mg/dL (65-115); Osmolality Calculated 289 mOsm/kg (285-295); Potassium 4.2 mmol/L (3.5-5.1); Sodium 138 mmol/L (136-145)
[2020-11-16] MEDS: aspirin 81 mg EC Tablet PO (08:24)
[2020-11-16] MEDS: metoprolol tartrate 25 mg Tablet 12.5 MG PO ×2 (08:24→20:09)
[2020-11-16] MEDS: lisinopril 2.5 mg Tablet PO (08:24)
[2020-11-16] MEDS: duloxetine 30 mg Capsule PO (08:24)
[2020-11-16] MEDS: potassium chloride ER 10 mEq Tablet PO (08:24)
[2020-11-16] MEDS: ticagrelor 90 mg Tablet PO ×2 (08:24→17:16)
--- NOTE | 2020-11-16 09:40 | PC.CHAP ---
Pastoral Care Encounter/Spiritual Assessment Type of Contact [] Declined inspector rubber stamp die visit [] Patient/Family/Request visit [] Outpatient visit [] Follow-up visit [] Physician referral [] Code/Alert [x] Routine visit [] Staff referral [] Actively dying [] Patient sleeping [] Family support [] [] Out of room [] Palliative care [] [] Receiving care in room [] Pre-surgical visit [] Trauma [] Long length of stay [] ICU visit [] Other: Relational/Emotional Strength [] Patient feels connected with others/family/visitors/staff [] Distress [] Loneliness/isolation [] Abandonment Spirituality of Patient [x] Person of Tigist [] Attends Mosque of their Tigist [] Believes in Prayer [] Reads Bible or Orthodoxy materials [] There are Spiritual issues to be addressed Clinical Rehabilitation Liaison Interventions [x] Prayer [x] Active listening [x] Non-anxious presence [x] Spiritual/emotional support [] Crisis/trauma care [] Spiritual counseling [] Bereavement support [] Provided bereavement packet [] Provided Bible/devotional materials [] Provided toy/stuffed animal, coloring book to patient or family member [] Provided Communion [] Anointing/Emma [] Salvation [x] Completed spiritual assessment [] Other: Impact on Illness or Injury [] Angry [] Fearful [] Anxious [] Often cries [] Exhaustion [] Unable to work [] Unable to attend oriental orthodox [] Unable to walk/stand [] Unable to read [] Unable to drive [] Unable to eat/drink [] Unable to sleep [] Unable to be with family [] Patient intubated [] Other: Summary patient resting better... monitor turned off in room so the sounds wouldn't keep her awake. Time spent with patient 10 min
--- NOTE | 2020-11-16 18:26 | P.PN_ITS ---
Subjective Subjective: Interval history: Patient is doing well. Denies any complaints of chest pain, shortness of breath or palpitations. Vitals/I&O/Wt Last Vital Signs Temp 99.7 F H 11/16/20 14:45 Pulse 66 11/16/20 14:45 Resp 18 11/16/20 14:45 BP 114/50 11/16/20 14:45 Pulse Ox 94 11/16/20 14:45 11/16/20 11/16/20 11/16/20 06:59 14:59 22:59 Intake Total 600 / 600 Balance 600 / 600 Weight last 48 hrs Weight 173 lb Physical Exam Narrative: EXAM NARRATIVE: GENERAL: Patient is alert, awake and oriented x3. [] NECK: No jugular vein distension. [] HEENT: No cyanosis. No icterus. No pallor. [] HEART: Regular S1 and S2. No murmur, rub or gallop. [] LUNGS: Clear to auscultate bilaterally. [] ABDOMEN: Soft, nontender and nondistended. Positive bowel sounds. No guarding, rebound or tenderness. [] CENTRAL NERVOUS SYSTEM: Grossly nonfocal. [] EXTREMITIES: Lower extremities with no edema bilaterally. Pulses palpable in the lower extremities, both dorsalis pedis and posterior tibial. [] Data : 11/16/20 03:30 11/16/20 03:30 A&P Assessment and plan (1) ST elevation myocardial infarction (STEMI): Status: Acute Qualifiers: Involved coronary artery: unspecified coronary artery Qualified Code(s): I21.3 - ST elevation (STEMI) myocardial infarction of unspecified site (2) Arthralgia, lumbar spine: Status: Chronic Patient had presented with acute inferior wall ST elevation [place]. She underwent successful revascularization with CHANI x2. She has residual moderate disease in the LAD that will be assessed with an outpatient stress test Continue aspirin and Brilinta. High intensity statin therapy Beta-blockers and lisinopril. ECHO showed normal LV systolic function Patient will need cardiac rehab as outpatient. We will check lipid profile Likely discharge tomorrow. Attestations Medical Necessity Statement*: Care expected to cross 2 midnights. Patient s/p successful revascularization after acute inferior wall STEMI Coding Level of Care Code Acute Director Of The [facility] [facility] for Chalo Barksdale Diagnoses ST elevation myocardial infarction (STEMI) I21.3 Involved coronary artery: unspecified coronary artery Arthralgia, lumbar spine M54.5
[2020-11-16] MEDS: atorvastatin 40 mg Tablet PO (20:09)
[2020-11-16 22:22] LABS: Chol HDL Ratio 4.82 mg/dL (0.0-4.40); Cholesterol 164 mg/dL (0-200); HDL Cholesterol 34 mg/dL (60-100); LDL Cholesterol Calculated 100 mg/dL (50-129); Triglycerides 152 mg/dL (0-150); VLDL Cholestrol Calculation 30 mg/dL (0-30)
--- NOTE | 2020-11-16 22:56 | PC.NURSE ---
PT IS RESTING IN BED. PT DENIES PAIN AT THIS TIME. WILL CONTINUE TO MONITOR.
[2020-11-17] VITALS: BP 101/43; PULSE 61; RESP 22; TEMP 36.6; O2SAT 94
[2020-11-17 04:00] VITALS: BP 117/56; PULSE 62; RESP 16; TEMP 36.7; O2SAT 94
[2020-11-17 05:32] VITALS: PULSE 61
--- NOTE | 2020-11-17 05:38 | PC.NURSE ---
PT IS RESTING IN BED. PT DENIES PAIN AT THIS TIME. WILL CONTINUE TO MONITOR.
[2020-11-17 07:02] VITALS: BP 137/54; PULSE 59; RESP 20; TEMP 36.8; O2SAT 92
[2020-11-17] MEDS: potassium chloride ER 10 mEq Tablet PO (08:20)
[2020-11-17] MEDS: lisinopril 2.5 mg Tablet PO (08:21)
[2020-11-17] MEDS: duloxetine 30 mg Capsule PO (08:21)
[2020-11-17] MEDS: ticagrelor 90 mg Tablet PO (08:21)
[2020-11-17] MEDS: aspirin 81 mg EC Tablet PO (08:21)
--- NOTE | 2020-11-17 08:44 | PM.DCS ---
Discharge Providers Date of Admission: 11/15/20 06:06 Date of Discharge: November 17, 2020 Attending Provider at Admission: Boogie Carbone M.D Attending Provider at Discharge: Boogie Carbone M.D Primary Care Provider: Ofelia Rodriguez MD Diagnoses at Discharge Discharge Diagnosis (1) ST elevation myocardial infarction (STEMI): Qualifiers: Involved coronary artery: unspecified coronary artery Qualified Code(s): I21.3 - ST elevation (STEMI) myocardial infarction of unspecified site (2) Arthralgia, lumbar spine: Reason for Visit Reason for Visit: CP Brief History: 75 year old female with past medical history of arthritis, history of tobacco abuse and GERD started noticing heartburn at 7 PM last night. It continued on and off. She briefly went to sleep and then woke up with severe pressure and heartburn. She called EMS. They performed EKG that showed inferior leads ST elevation. STEMI was activated from the field and patient was brought to the hospital. She was emergently taken to [facility] and coronary angiography was performed. It showed total thrombotic occlusion of mid RCA and severe disease of ostial RCA. She also had moderate disease of LAD. RCA went successful revascularization with CHANI x2. She left the [facility] in a stable condition. Hospital Course Hospital Course 75 year old female with past medical history of arthritis, history of tobacco abuse and GERD started noticing heartburn at 7 PM last night. It continued on and off. She briefly went to sleep and then woke up with severe pressure and heartburn. She called EMS. They performed EKG that showed inferior leads ST elevation. STEMI was activated from the field and patient was brought to the hospital. She was emergently taken to [facility] and coronary angiography was performed. It showed total thrombotic occlusion of mid RCA and severe disease of ostial RCA. She also had moderate disease of LAD. RCA went successful revascularization with CHANI x2. She left the [facility] in a stable condition. And was started on aspirin and Brilinta. Her LV systolic function was preserved with no significant regional wall motion abnormalities. She stayed in the hospital over the next day. At time of discharge she was chest pain-free and ambulating without any symptoms. Need to be compliant with dual antiplatelet therapy was emphasized. Patient was discharged in a stable condition. Physical Exam Narrative: EXAM NARRATIVE: GENERAL: Patient is alert, awake and oriented x3. [] NECK: No jugular vein distension. [] HEENT: No cyanosis. No icterus. No pallor. [] HEART: Regular S1 and S2. No murmur, rub or gallop. [] LUNGS: Clear to auscultate bilaterally. [] ABDOMEN: Soft, nontender and nondistended. Positive bowel sounds. No guarding, rebound or tenderness. [] CENTRAL NERVOUS SYSTEM: Grossly nonfocal. [] EXTREMITIES: Lower extremities with no edema bilaterally. Pulses palpable in the lower extremities, both dorsalis pedis and posterior tibial. [] Discharge Data Data Completed and Pending: Completed Studies During Hospitalization Category Date Time Status XR chest 1V mariana ble [id number] Routine Exams 11/15/20 04:15 Completed CV echo complete* [id number] Routine Ultrasound 11/15/20 06:01 Completed Pending at discharge Category Date Time Status CHILD AND FAMILY SERVICES WORKER request for service Stat Exams 11/15/20 04:36 Taken Labs from last 24 hours 11/16/20 03:30 Triglycerides 152 H Cholesterol 164 LDL Cholesterol, C alc 100 Total VLDL Cholest la 30 HDL Cholesterol 34 L Cholesterol/HDL Ra dedrick 4.82 H Vitals: Last Vital Signs Temp 98.2 F 11/17/20 07:02 Pulse 59 L 11/17/20 07:02 Resp 20 H 11/17/20 07:02 BP 137/54 11/17/20 07:02 Pulse Ox 92 11/17/20 07:02 Discharge Plan Discharge Patient Disposition: Home Condition: Stable Prescriptions: New aspirin 81 mg Tablet,Delayed Release (Dr/Ec) 81 mg PO DAILY Qty: 90 RF: 3 atorvastatin 40 mg Tablet 40 mg PO BEDTIME Qty: 90 RF: 3 nitroglycerin 0.4 mg Tablet, Sublingual 0.4 mg sublingual Q5M PRN (Reason: Chest Pain) Qty: 30 RF: 1 lisinopril 2.5 mg Tablet 2.5 mg PO DAILY Qty: 90 RF: 3 Continued PreserVision AREDS 14,320-226-200 kgzn-[id number] capsule 1 cap PO BID@ RF: 0 biotin 1,000 mcg tablet,chewable 1,000 mcg PO DAILY@07 RF: 0 potassium chloride 10 mEq tablet extended release 10 meq PO DAILY@07 RF: 0 duloxetine [Cymbalta] 30 mg capsule,delayed release(DR/EC) 30 mg PO DAILY@2300 RF: 0 Adults Multivitamin 18 mg iron-400 mcg-25 mcg tablet 1 tab PO DAILY@07 RF: 0 omeprazole 20 mg capsule,delayed release(DR/EC) 20 mg PO DAILY@07 RF: 0 baclofen 10 mg tablet 10 mg PO DAILY PRN (Reason: muscle spasm) 90 Days Qty: 90 RF: 1 tizanidine 4 mg tablet 4 mg PO .HS PRN (Reason: muscle spasticity) 90 Days Qty: 90 RF: 1 hydrocodone-acetaminophen 5-325 mg tablet 1 tab PO TID PRN (Reason: pain) 30 Days Qty: 90 RF: 0 Discontinued aspirin 81 mg tablet,chewable 81 mg PO QDAY RF: 0 No Action clopidogrel 75 mg Tablet 75 mg PO DAILY Qty: 90 RF: 3 metoprolol tartrate 25 mg Tablet 25 mg PO BID@0900,2100 Qty: 120 RF: 3 metformin 500 mg tablet 500 mg PO BID 30 Days Qty: 60 RF: 0 (DME) glucometer testing kit See Rx Instructions .Route .MEDSUPPLY Qty: 1 RF: 0 Discharge Orders: Discharge Order (Routine); Ordered 11/17/20 Ordered By: Boogie Carbone Referrals: Ofelia Rodriguez MD [Primary Care Provider] - 4-7 days (You have a follow up appointment with Dr. Rodriguez on SundayNovember 26 at 10:30 if you can not keep this appointment please call to reschedule ) Boogie Carbone M.D [Physician] - 1 month (You have a follow up appointment with Dr. Carbone on SundayDecember 22 at 1:00 PM If you can not keep this appointment please call to rescheadule ) Valerie Smith FNP [Nurse Practitioner] - 7-10 days (You have a follow up appointment with Valerie CHOUDHURY on SundayNovember 24 at 10:45. If you can not keep this appointment please call heart care services to reschedule) Discharge Diet: Cardiac Discharge Activity: Increase activity as tolerated Patient Instructions: Metoprolol (By mouth), Nitroglycerin (By mouth), Lisinopril (By mouth), Atorvastatin (By mouth), Ticagrelor (By mouth), Left Heart Catheterization (DC), Coronary Angioplasty (DC), Chest Pain Stoplight, Post Angiogram Home Care Instructions, Post Heart Attack Stoplight Activity Restrictions/Additional Instructions: Please do not lift more than 5 pounds of weight for the next 5 days Discharge Attestations Time Spent in Discharge Care*: greater than 30 min Quality Metrics Clinical Quality Measures During this hospital stay, did patient experience: None Coding Level of Care Code Acute Machine Tool Technician Instructor for Chalo Barksdale Diagnoses ST elevation myocardial infarction (STEMI) I21.3 Involved coronary artery: unspecified coronary artery Arthralgia, lumbar spine M54.5
[2020-11-17] MEDS: metoprolol tartrate 25 mg Tablet 12.5 MG PO (09:16)
[2020-11-17 10:31] VITALS: BP 127/53; PULSE 65; RESP 18; TEMP 37; O2SAT 95
--- NOTE | 2020-11-17 10:34 | PC.NURSE ---
Went over pt discharge instructions. Patient understood instructions and had no questions. Patient vital signs stable upon departure and was taken out by wheelchair to be discharged home with granddaughter. Medications were called in to [facility] in [place], [place]. There was an issue with the e scripts not going through.
== END 2020-11-17 10:30 | disposition home or self-care (01) | DRG 247 ==
LOC: ER 04:52 → CCL 05:05 → CSU 09:08
PROVIDERS: Admitting Provider Internal Medicine; Emergency Provider Emergency Medicine; PCP Family Medicine; Visit Provider Internal Medicine
PROC: 027035Z Dilation of Coronary Artery, One Artery with Two Drug-eluting Intraluminal Devices, Percutaneous Approach (ICD-10-PCS; principal; 2020-11-15 04:00)
PROC: 027035Z Dilation of Coronary Artery, One Artery with Two Drug-eluting Intraluminal Devices, Percutaneous Approach (ICD-10-PCS; 2020-11-15 04:00)
DX: I21.19 ST elevation (STEMI) myocardial infarction involving other coronary artery of inferior wall (principal); I25.10 Atherosclerotic heart disease of native coronary artery without angina pectoris; M54.5 Low back pain; Z87.891 Personal history of nicotine dependence; K21.9 Gastro-esophageal reflux disease without esophagitis; Z79.891 Long term (current) use of opiate analgesic
CPT/HCPCS: 36415; 71045; 80048; 80053; 80061; 83880; 84484; 85025; 85347; 85610; 85730; 93005; 93306; 93452; 96361; 96374; 96375; 99213; 99285; C1725; C1769; C1874; C1887; C1894; C9606; J0461; J1644; J2250; J2270; J2405; J3010; J3490; J7030; Q9967

== ENCOUNTER 2020-11-19 05:44 | Inpatient (IN) | payer MEDICARE, SELFPAY ==
[2020-11-19] VITALS (56 sets, daily range): BP systolic 111–188; BP diastolic 48–96; PULSE 49–80; RESP 12–29; TEMP 36.6–37.3; O2SAT 86–97; BMI 29.7
--- NOTE | 2020-11-19 05:45 | XR_ITS ---
WS: [id number] Exam: XR chest 1V portable [id number] Date/Time of Exam: 11/19/2020 6:10 AM Reason For Exam: dyspnea/cough Comparison 11/15/2020. Small infiltrate near the left costophrenic angle. Remaining lung alfaro are clear. The lungs are ful ly expanded. Cardiomediastinal structures are rather unremarkable for technique. Regional bony elemen ts are unremarkable. XR/XR chest 1V portable [id number] IMPRESSION: 1. Small left lower lobe infiltrate near the left costophrenic angle.
--- NOTE | 2020-11-19 05:46 | ECG_ITS ---
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 Measurements Intervals [place] Rate: 56 P: 66 FL: 236 QRS: 14 QRSD: 123 T: 83 QT: 450 QTc: 438 Interpretive Statements SINUS BRADYCARDIA WITH FIRST DEGREE AV BLOCK INDETERMINATE AXIS RIGHT BUNDLE BRANCH BLOCK POSSIBLE INFERIOR MYOCARDIAL INFARCTION , OF INDETERMINATE AGE Compared to ECG 11/15/2020 06:16:18 Indeterminate axis now present Right bundle-branch block now present Ectopic atrial rhythm no longer present Incomplete right bundle-branch block no longer present Atrial abnormality no longer present Myocardial infarct finding still present Electronically Signed On 11-20-2020 11:36:58 PLASTIC PARTS DESIGNER by Patricia Ramos M.D. [id number]
--- NOTE | 2020-11-19 05:47 | W.ED.CHESTPA ---
HPI - Chest Pain General: Chief Complaint: Chest Pain Stated Complaint: CHEST PAIN Time Seen by Provider: 11/19/20 05:45 History of Present Illness: HPI narrative: 75 yo female presents to the ER via ambulance with complaints of chest pain. Patient was recently treated for a ST elevation PR with admission to this facility on November 15 and discharged on November 17. Patient onset of chest pain while at rest woke her up from sleep. She was short of breath with it. In the field she was given spray sublingual nitro and Zofran. The nitro did decrease her pain. There is a question of slight ST elevation in the inferior leads on the field EKG, however there was significant Q-wave. EKG on arrival when compared to most recent EKG at the time of discharge was unchanged. At the time of discharge patient was prescribed Brilinta however she was not able to get it filled due to the pharmacy being out. She did take Plavix and did not have any days where she was not covered with antiplatelet therapy. On arrival here she still is indicating mid left parasternal chest pain. She denies any diaphoresis or nausea at this point. At the time of her last heart catheterization patient was found to have an occlusion of the RCA with severe D disease of the ostial RCA as well as moderate disease of the LAD. Her troponin peaked at 1370 during her last hospitalization. 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 Onset (ago): hour(s) Timing of current episode: episodic Prior episodes: Yes Onset: during rest Pain location: substernal and left chest Pain radiation: back Severity: moderate Pain scale (0-10): 6 Quality: tightness and similar to prior PR Relieving factors: nitroglycerin Exacerbating factors: nothing Context: other (recent angioplasty with stent for STEMI 4 days ago) Associated symptoms: Reports dyspnea and nausea; Deny abdominal pain, diaphoresis, fever(s), leg edema, palpitations, sense of impending doom, syncope or vomiting Treatment prior to arrival: aspirin, nitroglycerin and oxygen Review of Systems Const: Denies: fever(s) or diaphoresis ENMT: Denies: throat pain, ear or mastoid pain, nasal discharge or nasal congestion Card: Denies: palpitations or syncope Resp: Reports: dyspnea GI: Reports: nausea; Denies: abdominal pain or vomiting : Denies: flank pain, difficulty voiding, dysuria, urinary frequency or urinary urgency Skin/Breast: Denies: rash or pruritus PFSH ED PFSH: Medical History Arthralgia, lumbar spine Encounter for long-term opiate analgesic use Long-term use of high-risk medication ST elevation myocardial infarction (STEMI) Surgical History History of suburethral sling procedure DR KRAMER 02/06/18 PORCINE GRAFT S/P cataract extraction S/P cholecystectomy S/P colectomy S/P total hysterectomy S/P tubal ligation Family History Mother Cancer LIVER CANCER Other Diabetes Hypertension Stroke Social History Smoking and tobacco status: former smoker Second hand smoke exposure: No Alcohol intake: never History of recent travel: No Female Reproductive History: Spontaneous abortions: No Physical Exam Const: COMMON NORMALS: no acute distress GENERAL APPEARANCE: cooperative and comfortable ORIENTATION/CONSCIOUSNESS: Yes awake, Yes oriented to person, Yes oriented to place and Yes oriented to time HENMT: COMMON NORMALS: normocephalic, atraumatic and hearing grossly normal bilaterally HEAD & SCALP: normocephalic and atraumatic Neck/C-Spine: COMMON NORMALS: no JVD Resp: COMMON NORMALS: normal respiratory effort, No retractions, No use of accessory muscles and clear to auscultation bilaterally AUSCULTATION: clear to auscultation bilaterally Cardio: COMMON NORMALS: no JVD, regular rate, regular rhythm and No murmurs present (Cardio) RATE: regular rate RHYTHM: regular rhythm GI: COMMON NORMALS: Soft to palpation and No hepatosplenomegaly present AUSCULTATION: Yes normoactive bowel sounds PALPATION: Yes Soft to palpation, No Tenderness to palpation present (GI), No Guarding due to palpation present (GI) and Yes No hepatosplenomegaly present Extremity: COMMON NORMALS: normal to inspection, capillary refill normal, no clubbing, cyanosis or edema, no calf tenderness and no pedal edema Neuro: SENSORIUM/ORIENTATION: Yes oriented to person, Yes oriented to place and Yes oriented to time Skin: COMMON NORMALS: no rashes or lesions noted GENERAL SKIN EXAM: no rashes or lesions noted Course Vital Signs: Vital signs: Vital Signs Temperature 98.2 F 11/19/20 05:45 Pulse Rate 49 L 11/19/20 07:04 Respiratory Rate 19 H 11/19/20 07:04 Blood Pressure 188/81 11/19/20 07:04 Pulse Oximetry 95 11/19/20 07:04 MDM - Chest Pain MDM Narrative: Medical decision making narrative: PA of the chest was read as negative for PE or dissection. Given her history with a recent STEMI known coronary artery disease we will go ahead and give her Lovenox admit to the ICU for cardiology consultation for further evaluation. Troponin is elevated but appears to be trending down. Will need serial troponins to confirm. Lab Data: Labs: Lab Results 11/19/20 11/19/20 11/19/20 Range/Units 05:58 05:58 05:58 WBC 11.8 H (4.0-10.0) 10^3/ uL RBC 4.64 (4.1-5.3) 10^6/u L Hgb 12.5 (11.5-15.3) g/dL Hct 39.2 (37.0-47.0) % MCV 84.5 (81-99) fL MCH 26.9 L (28.0-34.0) pg MCHC 31.9 (30.0-36.0) g/dL RDW 14.0 (12.1-15.1) % Plt Count 332 (130-400) 10^3/c mm MPV 9.4 (7.4-10.4) fL Neut % (Auto) 70.6 % Lymph % (Auto) 18.3 % Clare % (Auto) 7.5 % Eos % (Auto) 2.7 % Baso % (Auto) 0.5 % Neut # (Auto) 8.31 H (1.8-7.7) 10^3/u L Lymph # (Auto) 2.2 (0.8-4.8) 10^3/u L Clare # (Auto) 0.9 (0.2-0.9) 10^3/u L Eos # (Auto) 0.3 (0.0-0.8) 10^3/u L Baso # (Auto) 0.1 (0.0-0.1) 10^3/u L Nucleated RBC % (a uto) 0 % Nucleated RBCs # 0.0 /100WBC Sodium 135 L (136-145) mmol/L Potassium 4.2 (3.5-5.1) mmol/L Chloride 102 (98-107) mmol/L Carbon Dioxide 22 (22-29) mmol/L Anion Gap 15.2 (5-19) BUN 20 (8-23) mg/dL Creatinine 0.7 (0.5-0.9) mg/dL GFR Calculation Not Reportable Glucose 231 H (65-115) mg/dL Calculated Osmolal ity 290 (285-295) mOsm/k g Calcium 8.8 (8.5-10.5) mg/dL Magnesium 1.9 (1.7-2.3) mg/dL Total Bilirubin 1.5 H (0.15-1.2) mg/dL AST 17 (0-32) U/L ALT 14 (0-33) U/L Alkaline Phosphata se 84 (35-105) IU/L Creatine Kinase 26 (26-192) U/L Troponin T Baselin e 969 H* (0-10) ng/L Total Protein 6.2 L (6.6-8.7) g/dL Albumin 3.4 L (3.5-5.2) g/dL Globulin 2.8 (1.3-4.6) g/dL Discharge Plan Discharge Patient Disposition: Admitted As Inpatient Admit Provider: Vimal Lima Clinical Impression: Unstable angina, Coronary artery disease Condition: Stable Coding Level of Care Code ED Assembly Machine Offbearer for g Fwd Exam Comprehensive
[2020-11-19 06:06] LABS: Basophils # 0.1 10^3/uL (0.0-0.1); Basophils % 0.5 %; Eosinophils # 0.3 10^3/uL (0.0-0.8); Eosinophils % 2.7 %; Hematocrit 39.2 % (37.0-47.0); Hemoglobin 12.5 g/dL (11.5-15.3); Lymphocytes # 2.2 10^3/uL (0.8-4.8); Lymphocytes % 18.3 %; Mean Corpuscular HGB Conc 31.9 g/dL (30.0-36.0); Mean Corpuscular Hemoglobin 26.9 pg (28.0-34.0); Mean Corpuscular Volume 84.5 fL (81-99); Mean Platelet Volume 9.4 fL (7.4-10.4); Monocytes # 0.9 10^3/uL (0.2-0.9); Monocytes % 7.5 %; Neutrophils # 8.31 10^3/uL (1.8-7.7); Neutrophils % 70.6 %; Nucleated Red Blood Cells % 0 %; Platelet Count 332 10^3/cmm (130-400); Red Blood Count 4.64 10^6/uL (4.1-5.3); White Blood Count 11.8 10^3/uL (4.0-10.0)
[2020-11-19] MEDS: nitroglycerin drip 50 MG/250 ML PREMIX IV ×2 (06:07→16:42)
[2020-11-19] MEDS: morphine 4 mg/mL SDV 1 mL IVP (06:08)
--- NOTE | 2020-11-19 06:25 | CTR_ITS ---
PROCEDURE INFORMATION: Exam: CT Angiography Chest With Contrast Exam date and time: 11/19/2020 6:27 AM Age: 75 years old Clinical indication: Pain; Shortness of breath; Prior surgery; Surgery type: Cardiac stents; Patient HX: Central chest pressure. SOB. Fever. ; Additional info: Chest pain/dyspnea TECHNIQUE: Imaging protocol: Computed tomographic angiography of the chest with contrast. 3D rendering (Not supervised by radiologist): MIP and/or 3D reconstructed images were created by the technologist. Radiation optimization: All CT scans at this facility use at least one of these dose optimization techniques: automated exposure control; mA and/or kV adjustment per patient size (includes targeted exams where dose is matched to clinical indication); or iterative reconstruction. Contrast material: OMNI 350; Contrast volume: 69 ml; Contrast route: INTRAVENOUS (IV); COMPARISON: CR XR chest 1V portable [id number] 11/19/2020 6:08 AM RADIATION DOSE METRICS: Total DLP (mGy-cm): 832.6 FINDINGS: Pulmonary arteries: Normal. No pulmonary emboli. Aorta: There is calcification of the aorta but there is no evidence of aneurysm or aortic dissection. Lungs: Emphysematous changes are present with small blebs in the right apex. There is mild dependent atelectasis. No pneumonia is seen. Pleural spaces: Minimal right pleural effusion is present. Heart: The heart is not enlarged. There are calcifications of the carotid arteries. A coronary artery stent is present. Lymph nodes: Unremarkable. No enlarged lymph nodes. Bones/joints: Chronic degenerative changes are present in the spine with joint space narrowing sclerosis and osteophytes. Soft tissues: Unremarkable. CT/CT angio chest PE protcl [id number] IMPRESSION: 1. No evidence of pulmonary embolus or aortic dissection. 2. Coronary artery disease. 3. Minimal right pleural effusion. Radiation Dose CTDIVOL = (mGy): DLP = 832.6 (mGy-cm)
[2020-11-19 06:30] LABS: Alanine Aminotransferase 14 U/L (0-33); Albumin Level 3.4 g/dL (3.5-5.2); Alkaline Phosphatase 84 IU/L (35-105); Anion Gap 15.2 (5-19); Aspartate Amino Transferase 17 U/L (0-32); Blood Urea Nitrogen 20 mg/dL (8-23); Calcium 8.8 mg/dL (8.5-10.5); Carbon Dioxide 22 mmol/L (22-29); Chloride 102 mmol/L (98-107); Creatine Phosphokinase 26 U/L (26-192); Globulin 2.8 g/dL (1.3-4.6); Glucose 231 mg/dL (65-115); Magnesium 1.9 mg/dL (1.7-2.3); Osmolality Calculated 290 mOsm/kg (285-295); Potassium 4.2 mmol/L (3.5-5.1); Sodium 135 mmol/L (136-145); Total Bilirubin 1.5 mg/dL (0.15-1.2); Total Protein 6.2 g/dL (6.6-8.7)
[2020-11-19] MEDS: morphine 4 mg/mL SDV 1 mL 2 MG IVP (06:31)
[2020-11-19 06:36] LABS: Troponin(5th) Baseline 969 ng/L (0-10)
--- NOTE | 2020-11-19 06:41 | PC.NURSE ---
After starting nitro drip and giving morphine patient states she feels hot and her pain is not getting any better.
[2020-11-19] MEDS: iohexol 350 mg/mL 100 mL Btl IV (06:43)
--- NOTE | 2020-11-19 07:46 | ECG_ITS ---
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 Measurements Intervals [place] Rate: 63 P: 99 GA: 200 QRS: -2 QRSD: 112 T: 66 QT: 436 QTc: 448 Interpretive Statements SINUS RHYTHM INDETERMINATE AXIS POSSIBLE RIGHT VENTRICULAR CONDUCTION DELAY [RSR (QR) IN V1/V2] INFERIOR TN, OF INDETERMINATE AGE Compared to ECG 11/19/2020 05:47:31 Sinus bradycardia no longer present First degree AV block no longer present Right bundle-branch block no longer present Myocardial infarct finding no longer present Electronically Signed On 11-20-2020 11:34:17 SENIOR TELECOMMUNICATIONS ENGINEER by Patricia Ramos M.D. [id number]
--- NOTE | 2020-11-19 08:03 | PM.CONSULT ---
Providers/Reason For Consult Consulting Physican/Specialty*: Boogie Carbone MD/Interventional Cardiology Reason for Consult*: NSTEMI Requesting Physcian: Samuel Rodriguez MD Attending Physician: Samuel Rodriguez MD Primary Care Provider: Ofelia Rodriguez MD History of Present Illness History of Present Illness Bernice Diez is a 75 year old female with recent STEMI (on 11/15) and revascularization of RCA with CHANI x 2 who was discharged 2 days ago on aspirin and brilinta. Patient did not get her brilinta from pharmacy and did not take it for 2 days. She woke last night with severe substernal chest pressure. EKG was equivocal as had recent STEMI and laboratory mechanic helper was not emergently activated. However, patient continued having chest pain and hospitalist service called in AM regarding patient's symptoms. On my evaluation, patient was in distress, having severe chest pain and was diaphoretic. Troponins on downward trend compared to her peak troponin from the STEMI. She was taken emergently to laboratory mechanic helper and was found to have thrombosis of the ostial RCA stent. Heavy thrombus burden was noted in the mid RCA stent as well. Multiple balloon angioplasties performed in both stents with oriental orthodox of the blood flow.In distal rca, at the edge of prior stent she had a hazy lesion and was treated with CHANI x 1. Patient is now switched to Plavix. Review of Systems General: Reports: 10 or more systems reviewed and unremarkable except in HPI and below Const: Denies: fever(s) or chills Eyes: Denies: change in vision ENMT: Denies: throat pain Card: Reports: chest pain Resp: Reports: dyspnea GI: Reports: nausea; Denies: abdominal pain : Denies: flank pain Musc: Denies: neck pain Neuro: Denies: headache(s) Endo: Denies: polyuria Lior/Lymph: Denies: easy bruising All/Imm: Denies: urticaria Meds/Allergies Home Medications and Allergies Home Medications Medication Instructions Recorded Confirmed Last Taken Type biotin 1,000 mcg chewable tablet 1,000 mcg PO DAILY@07 10/14/19 11/19/20 11/14/20 08:00 History duloxetine 30 mg capsule,delayed 30 mg PO DAILY@2300 10/14/19 11/19/20 11/18/20 History release multivit with minerals-iron 18 1 tab PO DAILY@07 tab 10/14/19 11/19/20 11/18/20 History mg-folic ac 400 mcg-vit K 25 mcg tablet potassium chloride 10 mEq 10 meq PO DAILY@07 10/14/19 11/19/20 11/19/20 History tablet,extended release vitamins A,C,P-rdoh-iaqloo 14,320 1 cap PO BID@07,23 10/15/19 11/19/20 11/18/20 History unit-226 mg-200 unit capsule baclofen 10 mg tablet 10 mg PO DAILY PRN 90 Days #90 tab 11/12/20 11/19/20 11/14/20 08:00 Rx hydrocodone 5 mg-acetaminophen 325 1 tab PO TID PRN 30 Days #90 tab 11/12/20 11/19/20 11/14/20 21:00 Rx mg tablet omeprazole 20 mg capsule,delayed 20 mg PO DAILY@07 11/12/20 11/19/20 11/19/20 History release tizanidine 4 mg tablet 4 mg PO .HS PRN 90 Days #90 tab 11/12/20 11/19/20 11/14/20 21:00 Rx aspirin 81 mg PO DAILY #90 tab 11/17/20 11/19/20 11/18/20 Rx atorvastatin 40 mg PO BEDTIME #90 tab 11/17/20 11/19/20 11/18/20 Rx lisinopril 2.5 mg PO DAILY #90 tab 11/17/20 11/19/20 11/18/20 Rx metoprolol tartrate 12.5 mg PO BID@0900,2100 #90 tab 11/17/20 11/19/20 11/18/20 Rx nitroglycerin 0.4 mg SUBLINGUAL Q5M PRN #30 tab 11/17/20 11/19/20 Unknown Rx ticagrelor [Brilinta] 90 mg PO BID #180 tab 11/17/20 11/19/20 Unknown Rx Allergies Allergy/AdvReac Type Severity Reaction Status Date / Time No Known Allergies Allergy Verified 11/12/20 11:02 Current Medications Current Medications Generic Name Dose Route Start Last Admin Trade Name Freq PRN Reason Stop Dose Admin Nitroglycerin/Dextrose 50 mg in 250 mls @ 0 mls/hr 11/19/20 06:00 11/19/20 06:40 Nitroglycerin Drip IV 12 mcg/min .Q0M JENA 3.6 mls/hr Titration Protocol Per Protocol PFSH Acute PFSH: Medical History Arthralgia, lumbar spine Encounter for long-term opiate analgesic use Long-term use of high-risk medication Obesity ST elevation myocardial infarction (STEMI) Surgical History Abnormal coronary angiogram November 15, 2020 with RCA drug-eluting stent x2. See formal report History of suburethral sling procedure DR KRAMER 02/06/18 PORCINE GRAFT S/P cataract extraction S/P cholecystectomy S/P colectomy S/P total hysterectomy S/P tubal ligation Family History Mother Cancer LIVER CANCER Other Diabetes Hypertension Stroke Social History Smoking and tobacco status: former smoker Second hand smoke exposure: No Alcohol intake: never History of recent travel: No Female Reproductive History: Spontaneous abortions: No Vitals/I&O/Wt Last Vital Signs Temp 98.2 F 11/19/20 05:45 Pulse 49 L 11/19/20 07:04 Resp 19 H 11/19/20 07:04 BP 188/81 11/19/20 07:04 Pulse Ox 95 11/19/20 07:04 11/18/20 11/19/20 11/19/20 22:59 06:59 14:59 Intake Total 1.20 / 1.20 Balance 1.20 / 1.20 Weight last 48 hrs Weight 173 lb Physical Exam Narrative: EXAM NARRATIVE: GENERAL: Patient is alert, awake and oriented x3. [] NECK: No jugular vein distension. [] HEENT: No cyanosis. No icterus. No pallor. [] HEART: Regular S1 and S2. No murmur, rub or gallop. [] LUNGS: Clear to auscultate bilaterally. [] ABDOMEN: Soft, nontender and nondistended. Positive bowel sounds. No guarding, rebound or tenderness. [] CENTRAL NERVOUS SYSTEM: Grossly nonfocal. [] EXTREMITIES: Lower extremities with no edema bilaterally. Pulses palpable in the lower extremities, both dorsalis pedis and posterior tibial. [] A&P Assessment and plan (1) NSTEMI (non-ST elevated myocardial infarction): Status: Acute (2) Coronary artery disease: Status: Acute (3) Obesity: Status: Acute Patient had recent revascularization in the setting of inferior wall STEMI. She did not take Brilinta for 2 days. Stent thrombosis secondary to non compliance. She underwent successful revascularization today with multiple balloon angioplasties and CHANI x 1. Patient is chest pain free now. Aspirin, Plavix for atleast 1 year(reloaded with plavix today, replaced brilinta as per patient she did not take brilinta because of non availability) Aggrastat for 12 hours High intensity statin therapy Beta floyd and lisinopril Thank you for involving us with care of this patient. We will continue to follow. Please call with questions Coding Level of Care Code Acute Marketing Communications Coordinator for Chalo [place] Diagnoses NSTEMI (non-ST elevated myocardial infarction) I21.4 Coronary artery disease I25.10 Obesity E66.9
--- NOTE | 2020-11-19 08:06 | XACV_ITS ---
Exam Room: [facility] Ht: 163 cm Wt: 78 kg BSA: 1.91 m2 Gender: Female : 1945 Exam Priority: Routine Procedure(s): Procedure Description: Diagnostic procedure Procedure Description: PCI procedure Procedure Description: Drug Eluting Coronary Stent Procedure Description: PTCA Procedure Description: Miscellaneous Procedure Description: ACT Procedure Description: Coronary Angiography Diagnostic Cath Status: Emergency Diagnostic Findings * LM has mild luminal irregularities. * Mid LAD has a 40-50% stenosis. * CX has mild luminal irregularities. * Ostial RCA stent has acute stent thrombosis with large thrombus burden throughout the vessel. Proximal Right Coronary Artery: Severe 100% stenosis, LISA: 0 flow. * Mid Right Coronary Artery to dRCA: Moderate 70% stenosis, LISA: 0 flow. This is at distal edge of the prior stent. * Coronary angiography shows right dominance. PCI Status: Emergency PCI Indication: NSTE - ACS Interventional Findings * INDICATION: Patient had a recent STEMI a few days back and underwent successful revascularization with CHANI x2. RCA had a proximal vessel stent and a mid RCA stent. She presented last night with chest pain. She was not compliant with her Brilinta and did not take it for 2 days. Cardiology contacted in the morning and patient was assessed and emergently taken to [facility] secondary to concern for possible stent thrombosis secondary to non compliance with DAPT. * PROCEDURE DETAIL: We engaged RCA with a JR4 guide catheter. IV heparin was used to maintain an ACT above 250 seconds. Aggrastat was also started. A 0.014 run-through guidewire was used to cross the stenosis and was placed in the distal vessel. We serially dilated the proximal and mid vessel stents with 3.00x6mm NC balloon. This restored blood flow to the vessel. There was a stenosis at the distal edge of mid RCA vessel that was treated with a 2.5x8mm Resolute Hamburg stent. At this time final angiogram was performed that showed excellent stent expansion, no residual thrombus and LISA 3 flow. Guide wire and guide catheters were removed and patient left the laboratory apparatus glass blower in a stable condition. * Proximal Right Coronary Artery: 100% stenosis treated with MDT NC EUPHORA RX [id number] BALLOON. 0% residual stenosis, LISA: 3 flow. * Mid Right Coronary Artery to dRCA: 70% stenosis treated with MDT NC EUPHORA RX [id number] BALLOON, AB TREK 2.50X8 RX BALLOON, and MDT R IVAN 2.5X8 CHANI. 0% residual stenosis, LISA: 3 flow. Conclusions 1. Acute stent thrombosis in RCA secondary to non compliance with Brilinta. 2. Mid to distal RCA stenosis treated with CHANI x 1. 3. Proximal Right Coronary Artery was treated with Balloon. 4. Mid Right Coronary Artery to dRCA was treated with two Balloon and Drug Eluting Stent. Recommendations * Continue aspirin. We will switch Brilinta to Plavix because of availability and compliance issues. * Order Echocardiogram. * High intensity statin therapy. * Beta blockers and Lisinopril. * Outpatient cardiology followup. * Cardiac rehab referral. Interventional RX Recommendation: PCI w/o planned CABG Diagnostic RX Recommendation: PCI w/o planned CABG Anticoagulation: Heparin, Tirofiban Pressures Phase:Rest AO : 217 / 135 ( 136 ) @ 2:17:00 AM 132 / 62 ( 93 ) @ 2:51:00 AM 144 / 62 ( 98 ) @ 2:56:00 AM Clinical Evaluation EBL: 5mL-10mL Procedural Details Pre-Procedure Time Out. Identified patient by full name and date of as verbalized by the patient/guarantor. Does the consent match the physician's order: Yes. Accurate & Complete Informed Consent: Yes. Inpatient/Outpatient History & Physical on Chart: Yes. If H&P is completed, is and addenduem needed: No; If yes, is the addendum complete: N/A. Visualize and Verify Site with Patient/Guarantor: N/A. Relevant Radiology Images available: N/A. Pre-op teaching completed and patient verbalized understanding. The risks, benefits, and alternatives of sedation and/or procedure were discussed by physician. The patient agrees to continue. Procedure started. [facility] Clinical Fraility Score: 3: Managing Well. [facility] Indications: ACS <= 24 hours. Chest Pain Symptom Assessment: Typical Angina Symptoms. Cardiovascular Instability: No. Correct patient, site and procedure confirmed by cath team. PERRLA. 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 Lungs clear x 5 lobes. IV Site on Arrival: 20 gauge in the right anticubital. IV Site on Arrival: 20 gauge in the left anticubital. Physician arrived. IV Fluids: 0.9% NaCl at KVO. 0 mL infused prior to laboratory apparatus glass blower. Oxygen started at 2liters/min via nasal canula. bilateral groins was prepped with chloroprep then draped in the usual sterile fashion. Baseline sample Acquired. HR: 51 BPM. Physician scrubbed in. Immediate Pre-Procedure Time Out. Correct Patient: Yes; Correct Procedure: Yes; Correct Site: Yes; Correct Patient Position: Yes; Correct Supplies: Yes; Dried Flammable Prep: Yes; Blood Products Available: N/A;. Carol from lab called with critical Troponin of 725.3. Relayed result to Dr Carbone. Lidocaine 1% infiltrated to the right radial. Arterial access obtained. 6 cuban JR 4 guide catheter was inserted over the wire. Inventory is CRD 6FR JR 4 GUIDE 100cm. Equipment: 6F - Radial. Cardiac Cath Pack. ACIST Manifold Kit Model BT 2000. Heparinized Saline (2 units/mL), 1000 mL bag. Runthrough guidewire was advanced through the guide catheter to lesion in the prox RCA. Inflation number : 1 A MDT NC EUPHORA RX [id number] BALLOON was prepped and advanced across the Prox RCA , then inflated to 14 LYDIA for 0:17 seconds. Inflation number: 2 The MDT NC EUPHORA RX 3.25U90UY BALLOON was reinflated across the Prox RCA, to 14 LYDIA for 0:10 seconds. AP pads applied. Inflation number: 3 The MDT NC EUPHORA RX 3.21I04FN BALLOON was reinflated across the Prox RCA, to 0 LYDIA for 0:20 seconds. Inflation number: 1 The MDT NC EUPHORA RX 3.83A84OV BALLOON was reinflated across the Mid RCA, to 14 LYDIA for 0:27 seconds. Balloon out. Runthrough guidewire was advanced through the guide catheter to lesion in the mid RCA. One runthrough wire out. Inflation number : 2 A AB TREK 2.50X8 RX BALLOON was prepped and advanced across the Mid RCA , then inflated to 14 LYDIA for 0:20 seconds. Inflation number: 3 The AB TREK 2.50X8 RX BALLOON was reinflated across the Mid RCA, to 14 LYDIA for 0:16 seconds. Balloon out. Results checked. Inflation number: 4 The MDT NC EUPHORA RX 3.63Z91CR BALLOON was reinflated across the Mid RCA, to 16 LYDIA for 0:12 seconds. Inflation number: 5 The MDT NC EUPHORA RX 3.17Q42HY BALLOON was reinflated across the Mid RCA, to 12 LYDIA for 0:12 seconds. Inflation number: 4 The MDT NC EUPHORA RX 3.22P23GH BALLOON was reinflated across the Prox RCA, to 14 LYDIA for 0:29 seconds. Inflation number: 5 The MDT NC EUPHORA RX 3.28B87LN BALLOON was reinflated across the Prox RCA, to 16 LYDIA for 0:20 seconds. Inflation number: 6 The MDT NC EUPHORA RX 3.94T64GN BALLOON was reinflated across the Prox RCA, to 18 LYDIA for 0:11 seconds. Balloon out. Results checked. Inflation Number : 6 A MDT R IVAN 2.5X8 CHANI -Lot Number# [id number] exp date 12/30/2020 was prepped and advanced across the Mid RCA. The stent was deployed at 14 LYDIA for 0:25 seconds. Inflation number: 7 The stent balloon was then re-inflated across the Mid RCA to 16 LYDIA for 0:12 seconds. Inflation number: 8 The stent balloon was then re-inflated across the Mid RCA to 18 LYDIA for 0:09 seconds. Stent balloon out over wire. Results checked. Inflation number: 9 The MDT NC EUPHORA RX 3.11A90HB BALLOON was reinflated across the Mid RCA, to 18 LYDIA for 0:17 seconds. Inflation number: 10 The MDT NC EUPHORA RX 3.04H28UX BALLOON was reinflated across the Mid RCA, to 12 LYDIA for 0:13 seconds. Inflation number: 11 The MDT NC EUPHORA RX 3.06H33MN BALLOON was reinflated across the Mid RCA, to 12 LYDIA for 0:14 seconds. Balloon out. Results checked. Wire out. Guide catheter out. A 5 cuban TIG catheter in over wire. Multiple views taken of left coronary artery. ACT drawn. Results 301 seconds. Therapeutic limits - pre-heparin administration 90-150 seconds and monitoring heparin during a vascular procedure >250 seconds. Catheter removed over the exchange wire. Physician scrubbed out. A TR Band was successful obtaining hemostatsis at the Right Radial artery insertion site. TR band placed. Hemostasis obtained. Post Procedure: Pulses reassessed and unchanged. PERRLA. 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 No VTE prophylaxis required. Total IV fluids: 56.2 mL. Contrast type used: Omnipaque 300 mgI/mL, 500 mL bottle. PCI Indication: NSTE. Medication's Wasted: Lidocaine 1% = 18 mL. Medication's Wasted: Heparin = 3000 units. Medication's Wasted: Nitro = 49.5 mg. Post-op diagnosis: acute stent thrombosis. Complications: none. Medication's Wasted: Other = fentanyl 75 mcg. Estimated blood loss: 5mL-10mL. Procedure completed. Patient transferred by bed to ICU. Vital chart was stopped. Access Site Site: Right Radial artery Sheath Size: 6 Fr Hemostasis Method: TR Band Hemostasis Success: Successful Procedure Medications Start: 8:11 AM Stop: 8:11 AM Medication: Benadryl Amount: 50 mg Route: I.V. Start: 8:11 AM Stop: 8:11 AM Medication: Heparin Amount: 5000 units Route: I.V. Start: 8:12 AM Stop: 8:12 AM Medication: Plavix Amount: 600 mg Route: P.O. Start: 8:16 AM Stop: 8:16 AM Medication: Versed Amount: 1 mg Route: I.V. Start: 8:16 AM Stop: 8:16 AM Medication: Fentanyl Amount: 25 mcg Route: I.V. Start: 8:16 AM Stop: 8:16 AM Medication: Nitrogylcerin Amount: 200 mcg Route: I.A. Start: 8:21 AM Stop: 8:21 AM Medication: Heparin Amount: 3000 units Route: I.V. Start: 8:26 AM Stop: 8:26 AM Medication: Versed Amount: 1 mg Route: I.V. Start: 8:39 AM Stop: 8:39 AM Medication: Aggrastat 12.5 mg/250 mL Amount: 40 ml Route: I.V. bolus Start: 8:40 AM Stop: 8:40 AM Medication: Aggrastat 12.5 mg/250 mL Amount: 14.4 ml/hr Route: I.V. drip Start: 8:43 AM Stop: 8:43 AM Medication: Nitrogylcerin Amount: 200 mcg Route: I.C. Start: 8:51 AM Stop: 8:51 AM Medication: Nitrogylcerin Amount: 100 mcg Route: I.C. I, the attending physician, have reviewed and verified all procedure medications. Yes, all medications given per verbal order Report Signatures Finalized by Boogie Carbone MD on 11/28/2020 02:43 PM
[2020-11-19 08:13] LABS: Troponin 5 2HR 725.3 ng/L (0-10)
--- NOTE | 2020-11-19 09:13 | PM.HP ---
Providers/Chief Complaint Admitting Physician: Vimal Lima MD Primary Care Provider: Ofelia Rodriguez MD Chief Complaint: CHEST PAIN History of Present Illness Bernice Diez is a 75 year old female with recent coronary intervention to the RCA and released from the hospital on November 17 who presented with chest discomfort awakening her from sleep at approximately 4 AM. This was associated with some sweating and perhaps shortness of breath. It was described as a stretching type discomfort substernally. She had no vomiting. She denies any fevers since her last hospital stay. No blood in her stool or black or tarry stools. She reports she was not taking her Brilinta, as the pharmacy did not have this. She reports it was ordered but she has not yet received a call to pick it up. She received nitroglycerin and morphine in the emergency department that were not effective. When I evaluated her in the emergency department she was still having severe chest discomfort, despite nitroglycerin drip. I contacted cardiology for an evaluation and she was taken to [facility]. Review of Systems General: Reports: 10 or more systems reviewed and unremarkable except in HPI and below Const: Denies: fever(s) or chills Eyes: Denies: change in vision ENMT: Denies: throat pain Card: Reports: chest pain Resp: Reports: dyspnea GI: Reports: nausea; Denies: abdominal pain : Denies: flank pain Musc: Denies: neck pain Neuro: Denies: headache(s) Endo: Denies: polyuria Lior/Lymph: Denies: easy bruising All/Imm: Denies: urticaria Medications/Allergies Home Medications Medication Instructions Recorded Confirmed Last Taken Type biotin 1,000 mcg chewable tablet 1,000 mcg PO QDAY 10/14/19 11/15/20 11/14/20 08:00 History duloxetine 30 mg capsule,delayed 30 mg PO QDAY 10/14/19 11/15/20 11/14/20 08:00 History release multivit with minerals-iron 18 1 tab PO DAILY tab 10/14/19 11/15/20 11/14/20 08:00 History mg-folic ac 400 mcg-vit K 25 mcg tablet potassium chloride 10 mEq 10 meq PO QDAY 10/14/19 11/15/20 11/14/20 08:00 History tablet,extended release vitamins A,C,B-eocv-gaogrl 14,320 1 cap PO BID 10/15/19 11/15/20 11/14/20 08:00 History unit-226 mg-200 unit capsule baclofen 10 mg tablet 10 mg PO DAILY PRN 90 Days #90 tab 11/12/20 11/15/20 11/14/20 08:00 Rx hydrocodone 5 mg-acetaminophen 325 1 tab PO TID PRN 30 Days #90 tab 11/12/20 11/15/20 11/14/20 21:00 Rx mg tablet omeprazole 20 mg capsule,delayed 20 mg PO DAILY 11/12/20 11/15/20 11/14/20 08:00 History release tizanidine 4 mg tablet 4 mg PO .HS PRN 90 Days #90 tab 11/12/20 11/15/20 11/14/20 21:00 Rx aspirin 81 mg PO DAILY #90 tab 11/17/20 Unknown Rx atorvastatin 40 mg PO BEDTIME #90 tab 11/17/20 Unknown Rx lisinopril 2.5 mg PO DAILY #90 tab 11/17/20 Unknown Rx metoprolol tartrate 12.5 mg PO BID@0900,2100 #90 tab 11/17/20 Unknown Rx nitroglycerin 0.4 mg SUBLINGUAL Q5M PRN #30 tab 11/17/20 Unknown Rx ticagrelor [Brilinta] 90 mg PO BID #180 tab 11/17/20 Unknown Rx Allergies Allergy/AdvReac Type Severity Reaction Status Date / Time No Known Allergies Allergy Verified 11/12/20 11:02 PFSH Acute PFSH: Medical History (Updated 11/19/20 @ 09:22 by Samuel Rodriguez MD) Arthralgia, lumbar spine Encounter for long-term opiate analgesic use Long-term use of high-risk medication Obesity ST elevation myocardial infarction (STEMI) Surgical History (Updated 11/19/20 @ 09:16 by Samuel Rodriguez MD) Abnormal coronary angiogram November 15, 2020 with RCA drug-eluting stent x2. See formal report History of suburethral sling procedure DR KRAMER 02/06/18 PORCINE GRAFT S/P cataract extraction S/P cholecystectomy S/P colectomy S/P total hysterectomy S/P tubal ligation Family History Mother Cancer LIVER CANCER Other Diabetes Hypertension Stroke Social History Smoking and tobacco status: former smoker Second hand smoke exposure: No Alcohol intake: never History of recent travel: No Female Reproductive History: Spontaneous abortions: No Vitals/I&O/Wt Last Vital Signs Temp 98.2 F 11/19/20 05:45 Pulse 49 L 11/19/20 07:04 Resp 19 H 11/19/20 07:04 BP 188/81 11/19/20 07:04 Pulse Ox 95 11/19/20 07:04 11/18/20 11/19/20 11/19/20 22:59 06:59 14:59 Intake Total 1.20 / 1.20 Balance 1.20 / 1.20 Weight last 48 hrs Weight 78.471 kg Physical Exam Narrative: EXAM NARRATIVE: General exam is a white female who appears uncomfortable with chest discomfort HEENT: Pupils equally round. Oropharynx clear. Neck is supple no lymphadenopathy or thyromegaly Cardiovascular regular rate and rhythm without murmur, no S3 or S4 Lungs clear no wheezing or crackles Abdomen is soft with positive bowel sounds. No obvious organomegaly was deferred Extremities no cyanosis clubbing or edema, cap refill brisk Skin no rash Neuro no obvious focal deficits. Data : 11/19/20 05:58 11/19/20 05:58 Other data: Bilirubin 1.5 LFTs otherwise within normal limits Troponin baseline 969 with repeat 725 Albumin 3.4 CTA demonstrated no pulmonary embolism, evidence of atherosclerotic coronary disease and a minimal right pleural effusion. Chest x-ray reviewed demonstrated possible left lower lobe infiltrate but this was not confirmed on CTA Echocardiogram demonstrated preserved EF 55 to 60% with mild mitral regurgitation 1/4 diastolic dysfunction EKG demonstrated sinus rhythm intraventricular conduction delay nonspecific ST depression laterally A&P Assessment and plan (1) Unstable angina: Morphine as needed Nitroglycerin drip started in the emergency department Aspirin, statin, beta-floyd Initiation of heparin was considered but patient is acutely going to angiogram lab. I will therefore defer to cardiology Load of Plavix was considered with patient acutely going to angiogram. Will defer to cardiology Status: Acute (2) Hyperglycemia: Check hemoglobin A1c, TSH Status: Acute (3) Obesity: Encourage weight loss Status: Acute Additional A&P Information Full code Lovenox will suffice for DVT prophylaxis Attestations Medical Necessity Statement*: Will need greater than 2 midnight stay for addressing severe chest discomfort 4 days post angiogram with concern of stent closure Coding Level of Care Code Acute Substance Abuse Rn for Jennig Fwd Diagnoses Unstable angina I20.0 Hyperglycemia R73.9 Obesity E66.9
--- NOTE | 2020-11-19 10:14 | PC.CHAP ---
Pastoral Care Encounter/Spiritual Assessment Type of Contact [] Declined client operations manager visit [] Patient/Family/Request visit [] Outpatient visit [] Follow-up visit [] Physician referral [] Code/Alert [x] Routine visit [] Staff referral [] Actively dying [] Patient sleeping [] Family support [] [x] Out of room [] Palliative care [] [] Receiving care in room [] Pre-surgical visit [] Trauma [] Long length of stay [x] ICU visit [] Other: Relational/Emotional Strength [] Patient feels connected with others/family/visitors/staff [] Distress [] Loneliness/isolation [] Abandonment Spirituality of Patient [] Person of Tigist [] Attends Sikhism of their Tigist [] Believes in Prayer [] Reads Bible or Restorationist materials [] There are Spiritual issues to be addressed Building Carpenter Helper Interventions [x] Prayer [] Active listening [] Non-anxious presence [] Spiritual/emotional support [] Crisis/trauma care [] Spiritual counseling [] Bereavement support [] Provided bereavement packet [] Provided Bible/devotional materials [] Provided toy/stuffed animal, coloring book to patient or family member [] Provided Communion [] Anointing/[place] [] Salvation [x] Completed spiritual assessment [] Other: Impact on Illness or Injury [] Angry [] Fearful [] Anxious [] Often cries [] Exhaustion [] Unable to work [] Unable to attend presybeterian [] Unable to walk/stand [] Unable to read [] Unable to drive [] Unable to eat/drink [] Unable to sleep [] Unable to be with family [] Patient intubated [] Other: Summary Time spent with patient
[2020-11-19 10:20] LABS: Thyroid Stimulating Hormone 7.31 uIU/mL (0.27-4.20)
--- NOTE | 2020-11-19 11:46 | ECG_ITS ---
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 Measurements Intervals [place] Rate: 68 P: 66 [place]: 216 QRS: -17 QRSD: 144 T: -9 QT: 406 QTc: 433 Interpretive Statements SINUS RHYTHM WITH FIRST DEGREE AV BLOCK POSSIBLE LEFT ATRIAL ENLARGEMENT [-0.1mV P WAVE IN V1/V2] INDETERMINATE AXIS INTRAVENTRICULAR CONDUCTION DELAY [130+ ms QRS DURATION] INFERIOR MYOCARDIAL INFARCTION [40+ ms Q WAVE AND/OR ST/T ABNORMALITY IN II/aVF], OF INDETERMINATE AGE Compared to ECG 11/19/2020 07:52:03 First degree AV block now present Intraventricular conduction delay now present Myocardial infarct finding now present Electronically Signed On 11-20-2020 11:31:50 TECHNICAL SUPPORT INTERN by Patricia Ramos M.D. [id number]
[2020-11-19 12:00] LABS: Estmated Average Glucose 140; Hemoglobin A1C 6.5 % (4.0-6.0)
[2020-11-19 12:17] LABS: Glucose Point of Care 123 mg/dL (70-110)
[2020-11-19 13:21] LABS: Troponin 5 6HR 1271 ng/L (0-10); Troponin 5 6HR Delta 302 ng/L (0-12)
[2020-11-19] MEDS: aspirin 81 mg Chew Tablet PO (13:29)
[2020-11-19] MEDS: sodium chloride 0.9% 1,000 ML 50 ML IV ×2 (13:30→23:19)
--- NOTE | 2020-11-19 14:27 | USCV_ITS ---
Bernice Diez Age: 75 Gender: F : 1945 Exam Date: 11/19/2020 16:21 Ordering Phys: Boogie Carbone M.D ([email or web address]) Technologist: Gladis Chaparro Exam Location: [facility] Indication: WALL MOTION BP: 126 / 60 HR: 72 Rhythm: Sinus Technical Quality: MEASUREMENTS (Male / Female) Normal Values 2D ECHO LV Ejection Fraction MOD 2C 71.6 % LV Ejection Fraction 2C AL 70.9 % FINDINGS Left Ventricle Right Ventricle Right Atrium Left Atrium Mitral Valve Aortic Valve Tricuspid Valve Pulmonic Valve Pericardium Aorta CONCLUSIONS This is a limited echocardiogram performed to assess LV systolic function and regional wall motion. LV systolic function is normal with EF of 55-60% There is mild to moderate hypokinesis of the inferior wall. Compared to prior echocardiogram from 11/15/2020, inferior wall has mild to moderate hypokinesis but overall LV systolic function is normal Boogie Carbone MD (Electronically Signed) Final Date: 21 November 2020 10:57 S
[2020-11-19] MEDS: nitroglycerin 0.4 mg sublingual Tablet SUBLINGUAL ×4 (14:29→16:02)
--- NOTE | 2020-11-19 16:14 | ECG_ITS ---
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 Measurements Intervals [place] Rate: 71 P: 61 [place]: 198 QRS: -43 QRSD: 108 T: -9 QT: 405 QTc: 442 Interpretive Statements SINUS RHYTHM POSSIBLE LEFT ATRIAL ENLARGEMENT [-0.1mV P WAVE IN V1/V2] LOW QRS VOLTAGE IN PRECORDIAL LEADS [QRS DEFLECTION < 1.0 mV IN CHEST LEADS] POSSIBLE ANTERIOR MYOCARDIAL INFARCTION , OF INDETERMINATE AGE INFERIOR MYOCARDIAL INFARCTION,OF INDETERMINATE AGE Compared to ECG 11/19/2020 11:41:54 Low QRS voltage now present First degree AV block no longer present Indeterminate axis no longer present Intraventricular conduction delay no longer present Myocardial infarct finding still present Electronically Signed On 11-20-2020 11:06:12 GENERAL SUPERVISOR by Patricia Ramos M.D. [id number]
[2020-11-19] MEDS: perflutren protein-a microsphr 0.22 mg/mL SDV 3 mL IV (16:29)
[2020-11-19] MEDS: fentaNYL 50 mcg/mL INJ 2mL 12.5 MCG IVP ×2 (16:29→20:06)
[2020-11-19 17:16] LABS: Glucose Point of Care 132 mg/dL (70-110)
--- NOTE | 2020-11-19 18:35 | PC.NURSE ---
at 0715 Patient was having severe 9 out of 10 chest pain, Dr Salas at bedside, patient Nitro drip increased to help with pain but no resolve, repeat EKG showed Inferior LA, Cardiology Dr Carbone contacted and at bedside at 0800, looked at EKG report and ordered patient for 600 plavix and 5,ooo of Heparin, and straight to medical lab tech instructor, patient left for bottle label inspector at 0805 they gave heparin and plavix, patient had 100% reocclusion of stents, new stent placed and ballooned, patient back from denture laboratory technician at 0920, TR band in place with 21 of air, at 0930 20 of air, every 15 min i removed 2ml of air and at 1300 TR band was removed and gauze and tegaderm was in place. At 1415 patient complaining of chest pain 4 out of 10, called Dr Carbone and received an order for Nitro sublingual, gave one dose and pain brought down to a 2, at 1530 patient complaining of 4 out of 10 again and gave her 3 doses of Nitro with no result and an order of fentanyl IV once 12.5 and that brought her pain down to a 1, along with the Nitro drip at 10, patient also got a new 12 Lead and Echo, 12 lead showed no acute changes and Called Hector on Echo and he is not concerned and will continue to monitor, put in a q4hour fentanyl to help with pain.
[2020-11-19] MEDS: enoxaparin 40 mg/0.4 mL Syringe SUBCUT (20:06)
[2020-11-19] MEDS: metoprolol tartrate 25 mg Tablet PO (20:06)
[2020-11-19] MEDS: atorvastatin 40 mg Tablet PO (20:06)
--- NOTE | 2020-11-19 23:19 | PC.NURSE ---
IVF NS 0.9% hung early due to previous bag being empty and medication being continuous
[2020-11-20] VITALS (15 sets, daily range): BP systolic 90–140; BP diastolic 48–82; PULSE 60–94; RESP 15–27; TEMP 36.6–36.8; O2SAT 64–94
[2020-11-20 04:03] LABS: Basophils % 0.3 %; Eosinophils # 0.1 10^3/uL (0.0-0.8); Eosinophils % 0.9 %; Hematocrit 41.5 % (37.0-47.0); Lymphocytes # 1.3 10^3/uL (0.8-4.8); Lymphocytes % 10.6 %; Mean Corpuscular HGB Conc 31.3 g/dL (30.0-36.0); Mean Corpuscular Hemoglobin 27.1 pg (28.0-34.0); Mean Corpuscular Volume 86.6 fL (81-99); Mean Platelet Volume 9.8 fL (7.4-10.4); Monocytes # 1.2 10^3/uL (0.2-0.9); Monocytes % 9.8 %; Neutrophils # 9.16 10^3/uL (1.8-7.7); Nucleated Red Blood Cells % 0 %; Platelet Count 355 10^3/cmm (130-400); Red Blood Count 4.79 10^6/uL (4.1-5.3); Red Cell Distribution Width 14.3 % (12.1-15.1); White Blood Count 11.7 10^3/uL (4.0-10.0)
[2020-11-20 04:26] LABS: Anion Gap 12.4 (5-19); Blood Urea Nitrogen 13 mg/dL (8-23); Calcium 8.5 mg/dL (8.5-10.5); Carbon Dioxide 25 mmol/L (22-29); Chloride 103 mmol/L (98-107); Glucose 137 mg/dL (65-115); Magnesium 2.1 mg/dL (1.7-2.3); Osmolality Calculated 284 mOsm/kg (285-295); Potassium 4.4 mmol/L (3.5-5.1); Sodium 136 mmol/L (136-145)
[2020-11-20] MEDS: lisinopril 2.5 mg Tablet PO (08:44)
[2020-11-20] MEDS: pantoprazole DR 40 mg Tablet PO (08:44)
[2020-11-20] MEDS: aspirin 81 mg EC Tablet PO (08:44)
[2020-11-20] MEDS: clopidogrel 75 mg Tablet PO (08:44)
[2020-11-20] MEDS: metoprolol tartrate 25 mg Tablet PO ×2 (08:48→20:00)
--- NOTE | 2020-11-20 10:26 | PM.PN ---
Subjective Subjective: Interval history: Patient was seen this morning, she is doing well, after cardiac catheterization procedure, she did have recurrent chest pain after the procedure, but none overnight, none this morning, no shortness of breath, no lightheadedness, no dizziness Vitals/I&O/Wt Last Vital Signs Temp 98.2 F 11/20/20 00:00 Pulse 82 11/20/20 08:10 Resp 19 H 11/20/20 08:00 BP 124/55 11/20/20 08:00 Pulse Ox 92 11/20/20 08:10 11/19/20 11/20/20 11/20/20 22:59 06:59 14:59 Intake Total 481.575 / 754.900 590.833 / 1345.733 100 / 100 Output Total 450 / 450 750 / 1200 0 / 0 Balance 31.575 / 304.900 -159.167 / 145.733 100 / 100 Weight last 48 hrs Weight 80.603 kg Weight 78.471 kg Physical Exam Const: COMMON NORMALS: no acute distress and patient oriented x3 HENMT: COMMON NORMALS: normocephalic HEAD & SCALP: normocephalic Neck/C-Spine: COMMON NORMALS: no JVD Resp: COMMON NORMALS: normal respiratory effort, No retractions, No use of accessory muscles and clear to auscultation bilaterally AUSCULTATION: clear to auscultation bilaterally Cardio: COMMON NORMALS: no JVD, regular rate, regular rhythm, S1 normal heart sound present and S2 normal heart sound present RATE: regular rate RHYTHM: regular rhythm HEART SOUNDS: S1 normal heart sound present and S2 normal heart sound present GI: COMMON NORMALS: Normal to inspection, nondistended, normoactive bowel sounds present, Soft to palpation, non-tender, No hepatosplenomegaly present, no masses and no bruits PALPATION: Yes Soft to palpation and Yes No hepatosplenomegaly present Extremity: COMMON NORMALS: capillary refill normal, no clubbing, cyanosis or edema, no calf tenderness and no pedal edema Neuro: COMMON NORMALS: patient oriented x3 Psych: COMMON NORMALS: mental status grossly normal Data : 11/20/20 03:16 11/20/20 03:16 A&P Assessment and plan (1) Unstable angina: Status post thrombolytics, and stenting to distal RCA Did have chest pain after the procedure, EKGs no acute ST-T wave changes, currently chest pain-free Aspirin, statin, beta-floyd, Plavix Cardiology on consult We will consider moving to cardiac stepdown unit today based on cardiology's input PT OT Status: Acute (2) Obesity: Encourage weight loss Status: Acute (3) Type 2 diabetes mellitus: -Hemoglobin A1c 6.5 -Start low-dose sliding scale -Diabetic education -We will likely require Metformin on discharge, and or GLP-1 analog to decrease cardiovascular mortality Status: Acute Additional A&P Information Full code Lovenox will suffice for DVT prophylaxis Attestations Medical Necessity Statement*: Patient requires hospitalization for unstable angina, recurrent chest pain, type 2 diabetes Coding Level of Care Code Acute Supervisor Maintenance And Custodians for [facility] Fwd Diagnoses Unstable angina I20.0 Obesity E66.9 Type 2 diabetes mellitus E11.9
--- NOTE | 2020-11-20 12:13 | PM.PN ---
Subjective Subjective: Interval history: Patient is doing well. She denies any complaints of chest pain, shortness of breath or palpitations. She had undergone revascularization of RCA stent thrombosis with multiple balloon angioplasties and CHANI x1. Vitals/I&O/Wt Last Vital Signs Temp 98.2 F 11/20/20 00:00 Pulse 82 11/20/20 08:10 Resp 19 H 11/20/20 08:00 BP 124/55 11/20/20 08:00 Pulse Ox 92 11/20/20 08:10 11/19/20 11/20/20 11/20/20 22:59 06:59 14:59 Intake Total 481.575 / 754.900 590.833 / 1345.733 682.5 / 682.5 Output Total 450 / 450 750 / 1200 0 / 0 Balance 31.575 / 304.900 -159.167 / 145.733 682.5 / 682.5 Weight last 48 hrs Weight 177 lb 11.2 oz Weight 173 lb Physical Exam Narrative: EXAM NARRATIVE: GENERAL: Patient is alert, awake and oriented x3. [] NECK: No jugular vein distension. [] HEENT: No cyanosis. No icterus. No pallor. [] HEART: Regular S1 and S2. No murmur, rub or gallop. [] LUNGS: Clear to auscultate bilaterally. [] ABDOMEN: Soft, nontender and nondistended. Positive bowel sounds. No guarding, rebound or tenderness. [] CENTRAL NERVOUS SYSTEM: Grossly nonfocal. [] EXTREMITIES: Lower extremities with no edema bilaterally. Pulses palpable in the lower extremities, both dorsalis pedis and posterior tibial. [] Data : 11/20/20 03:16 11/20/20 03:16 A&P Assessment and plan (1) NSTEMI (non-ST elevated myocardial infarction): Status: Acute (2) Coronary artery disease: Status: Acute (3) Obesity: Status: Acute Patient had recent revascularization in the setting of inferior wall STEMI. She did not take Brilinta for 2 days. Stent thrombosis secondary to non compliance. She underwent successful revascularization yesterday with multiple balloon angioplasties and CHANI x 1. Patient is chest pain free now. Aspirin, Plavix for atleast 1 year(reloaded with plavix yesterday, replaced brilinta as per patient she did not take brilinta because of non availability and she feels it is expensive) High intensity statin therapy Beta floyd and lisinopril Can be transferred out of the ICU Thank you for involving us with care of this patient. We will continue to follow. Please call with questions Attestations Medical Necessity Statement*: Care expected to cross 2 midnights Coding Level of Care Code Acute Insurance And Financial Services Agent for [facility] Fwd Diagnoses NSTEMI (non-ST elevated myocardial infarction) I21.4 Coronary artery disease I25.10 Obesity E66.9
--- NOTE | 2020-11-20 16:58 | PC.NURSE ---
Receive Pts from ICU to room 105. Pt A&O x4. Resp even and non-labored no distress noted. Pt had no c/o pain or discomfort. no needs voiced. Pt sitting on the side of the bed eating dinner. Call light in reach. Will continue to monitor.
[2020-11-20 17:00] LABS: Glucose Point of Care 122 mg/dL (70-110)
[2020-11-20] MEDS: enoxaparin 40 mg/0.4 mL Syringe SUBCUT (19:59)
[2020-11-20] MEDS: atorvastatin 40 mg Tablet PO (20:00)
[2020-11-20 20:38] LABS: Glucose Point of Care 172 mg/dL (70-110)
[2020-11-21 04:00] VITALS: BP 101/43; PULSE 62; RESP 24; TEMP 36.7
[2020-11-21 04:57] LABS: Basophils % 0.4 %; Eosinophils # 0.3 10^3/uL (0.0-0.8); Eosinophils % 2.7 %; Hemoglobin 12.4 g/dL (11.5-15.3); Lymphocytes % 20.6 %; Mean Corpuscular Hemoglobin 27.4 pg (28.0-34.0); Mean Corpuscular Volume 88.5 fL (81-99); Monocytes # 0.9 10^3/uL (0.2-0.9); Monocytes % 9.3 %; Neutrophils # 6.45 10^3/uL (1.8-7.7); Neutrophils % 66.5 %; Nucleated Red Blood Cells % 0 %; Platelet Count 301 10^3/cmm (130-400); Red Blood Count 4.52 10^6/uL (4.1-5.3); Red Cell Distribution Width 14.4 % (12.1-15.1); White Blood Count 9.7 10^3/uL (4.0-10.0)
[2020-11-21 05:32] LABS: Alanine Aminotransferase 34 U/L (0-33); Albumin Level 3.2 g/dL (3.5-5.2); Alkaline Phosphatase 113 IU/L (35-105); Aspartate Amino Transferase 49 U/L (0-32); Blood Urea Nitrogen 18 mg/dL (8-23); Calcium 8.2 mg/dL (8.5-10.5); Carbon Dioxide 25 mmol/L (22-29); Chloride 104 mmol/L (98-107); Globulin 3.4 g/dL (1.3-4.6); Glucose 118 mg/dL (65-115); Magnesium 2.1 mg/dL (1.7-2.3); Osmolality Calculated 287 mOsm/kg (285-295); Sodium 137 mmol/L (136-145); Total Bilirubin 0.8 mg/dL (0.15-1.2); Total Protein 6.6 g/dL (6.6-8.7)
[2020-11-21 06:00] VITALS: PULSE 61
[2020-11-21 06:41] LABS: Glucose Point of Care 123 mg/dL (70-110)
[2020-11-21 07:16] VITALS: BP 97/51; PULSE 62; RESP 24; TEMP 36.8; O2SAT 95
[2020-11-21] MEDS: clopidogrel 75 mg Tablet PO (08:16)
[2020-11-21] MEDS: aspirin 81 mg EC Tablet PO (08:16)
[2020-11-21] MEDS: pantoprazole DR 40 mg Tablet PO (08:16)
[2020-11-21] MEDS: lisinopril 2.5 mg Tablet PO (08:16)
[2020-11-21] MEDS: metoprolol tartrate 25 mg Tablet PO (08:17)
--- NOTE | 2020-11-21 10:45 | P.PN_ITS ---
Subjective Subjective: Interval history: Patient is doing well. She denies any complaints of chest pain, shortness of breath or palpitations. Currently on aspirin and Plavix. Tolerating well. ECHO shows overall normal LV systolic function with mild to moderate hypokinesis of the inferior wall. Vitals/I&O/Wt Last Vital Signs Temp 98.3 F 11/21/20 07:16 Pulse 62 11/21/20 07:16 Resp 24 H 11/21/20 07:16 BP 97/51 11/21/20 07:16 Pulse Ox 95 11/21/20 07:16 11/20/20 11/21/20 11/21/20 22:59 06:59 14:59 Intake Total 250 / 1032.5 240 / 1272.5 240 / 240 Balance 250 / 432.5 240 / 672.5 240 / 240 Weight last 48 hrs Weight 174 lb 9.6 oz Weight 177 lb 11.2 oz Physical Exam Narrative: EXAM NARRATIVE: GENERAL: Patient is alert, awake and oriented x3. [] NECK: No jugular vein distension. [] HEENT: No cyanosis. No icterus. No pallor. [] HEART: Regular S1 and S2. No murmur, rub or gallop. [] LUNGS: Clear to auscultate bilaterally. [] ABDOMEN: Soft, nontender and nondistended. Positive bowel sounds. No guarding, rebound or tenderness. [] CENTRAL NERVOUS SYSTEM: Grossly nonfocal. [] EXTREMITIES: Lower extremities with no edema bilaterally. Pulses palpable in the lower extremities, both dorsalis pedis and posterior tibial. [] Data : 11/21/20 03:41 11/21/20 03:41 A&P Assessment and plan (1) NSTEMI (non-ST elevated myocardial infarction): Status: Acute (2) Coronary artery disease: Status: Acute (3) Obesity: Status: Acute Patient had recent revascularization in the setting of inferior wall STEMI. She did not take Brilinta for 2 days. Stent thrombosis secondary to non compliance. She underwent successful revascularization with multiple balloon angioplasties and CHANI x 1. Patient is chest pain free now. Aspirin, Plavix for atleast 1 year(reloaded with plavix and now on plavix 75mg daily, replaced brilinta as per patient she did not take brilinta because of non availability and she feels it is expensive) High intensity statin therapy Metoprolol 25mg BID and lisinopril 2.5 mg daily Patient is ready to be discharged today from cardiology standpoint Thank you for involving us with care of this patient. We will continue to follow. Please call with questions Attestations Medical Necessity Statement*: Care expected to cross 2 midnights. 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
--- NOTE | 2020-11-21 10:55 | PM.DCS ---
Discharge Providers Date of Admission: 11/19/20 06:49 Date of Discharge: November 21, 2020 Attending Provider at Admission: Vimal Lima MD Attending Provider at Discharge: Boy Goff MD Primary Care Provider: Ofelia Rodriguez MD Diagnoses at Discharge Discharge Diagnosis (1) NSTEMI (non-ST elevated myocardial infarction): Status: Acute (2) Coronary artery disease: Status: Acute (3) Obesity: Status: Acute Reason for Visit Reason for Visit: CHEST PAIN Hospital Course Hospital Course This is a 75-year-old female with a recent history of coronary intervention to RCA, due to pharmacy supply issues did take Brilinta and discharge, who presents to [facility] for complaints of chest pain Patient was admitted to [facility] for unstable angina with NSTEMI, admitted to ICU, receiving nitroglycerin drip, aspirin, statin, cardiology was consulted, patient was taken immediately to the cardiac catheterization lab's and was found to have stent thrombosis underwent revascularization and multiple balloon angioplasty and drug-eluting stent x1. Patient did well clinically after procedure, moved out of the ICU to the cardiac stepdown unit, remained chest pain-free. Patient will be discharged on aspirin 81 mg, now with Plavix 75 mg daily, to monitor for chest pain, close follow-up with cardiology as outpatient. Patient was reminded multiple times to not use of Brilinta on discharge ( due to long-term cost), to discard the Brilinta she has at home. Patient was advised to monitor for bloody or black stools, if so go to the emergency room. Repeat CBC in 1 week. Patient was also found to to be a type II diabetic on admission, her hemoglobin A1c was 6.5, discharged on Metformin 500 twice daily, with glucometer testing kit, instruction to measure blood sugars 3 times daily, bring blood sugar logs to her primary care physician's office. If her blood sugars greater than 500, call primary care. Have blood sugars less than 60 drink orange juice and call primary care. Physical Exam Const: COMMON NORMALS: no acute distress and patient oriented x3 HENMT: COMMON NORMALS: normocephalic HEAD & SCALP: normocephalic Neck/C-Spine: COMMON NORMALS: no JVD Resp: COMMON NORMALS: normal respiratory effort, No retractions, No use of accessory muscles and clear to auscultation bilaterally AUSCULTATION: clear to auscultation bilaterally Cardio: COMMON NORMALS: no JVD, regular rate, regular rhythm, S1 normal heart sound present and S2 normal heart sound present RATE: regular rate RHYTHM: regular rhythm HEART SOUNDS: S1 normal heart sound present and S2 normal heart sound present GI: COMMON NORMALS: Normal to inspection, nondistended, normoactive bowel sounds present, Soft to palpation, non-tender, No hepatosplenomegaly present, no masses and no bruits PALPATION: Yes Soft to palpation and Yes No hepatosplenomegaly present Extremity: COMMON NORMALS: capillary refill normal, no clubbing, cyanosis or edema, no calf tenderness and no pedal edema Neuro: COMMON NORMALS: patient oriented x3 Psych: COMMON NORMALS: mental status grossly normal Discharge Data Data Completed and Pending: Completed Studies During Hospitalization Category Date Time Status CT angio chest PE protcl [id number] Stat Cat Scan 11/19/20 06:25 Completed XR chest 1V mariana ble [id number] Stat Exams 11/19/20 05:45 Completed Pending at discharge Category Date Time Status FORENSIC DOCUMENT EXAMINER request for service Routin e Exams 11/19/20 08:06 Taken Complete Blood Co unt w/Auto AM LABS Lab 11/22/20 04:00 Ordered Complete Blood Co unt w/Auto AM LABS Lab 11/23/20 04:00 Ordered Comprehensive Met abolic Panel AM LA BS Lab 11/22/20 04:00 Ordered Comprehensive Met abolic Panel AM LA BS Lab 11/23/20 04:00 Ordered Magnesium AM LABS Lab 11/22/20 04:00 Ordered Magnesium AM LABS Lab 11/23/20 04:00 Ordered Phosphorus AM LAB S Lab 11/22/20 04:00 Ordered Phosphorus AM LAB S Lab 11/23/20 04:00 Ordered CV echo lmt wo/w contras [id number] Rout ine Ultrasound 11/19/20 14:27 Taken US/CV paperwork R outine Ultrasound 11/19/20 Taken Labs from last 24 hours 11/21/20 11/21/20 11/21/20 06:37 03:41 03:41 WBC 9.7 RBC 4.52 Hgb 12.4 Hct 40.0 MCV 88.5 MCH 27.4 L MCHC 31.0 RDW 14.4 Plt Count 301 MPV 10.0 Neut % (Auto) 66.5 Lymph % (Auto) 20.6 Whitman % (Auto) 9.3 Eos % (Auto) 2.7 Baso % (Auto) 0.4 Neut # (Auto) 6.45 Lymph # (Auto) 2.0 Whitman # (Auto) 0.9 Eos # (Auto) 0.3 Baso # (Auto) 0.0 Nucleated RBC % (a uto) 0 Nucleated RBCs # 0.0 Sodium 137 Potassium 4.0 Chloride 104 Carbon Dioxide 25 Anion Gap 12.0 BUN 18 Creatinine 0.8 GFR Calculation Not Reportable Glucose 118 H POC Glucose 123 H Calculated Osmolal ity 287 Calcium 8.2 L Phosphorus 3.0 Magnesium 2.1 Total Bilirubin 0.8 AST 49 H ALT 34 H Alkaline Phosphata se 113 H Total Protein 6.6 Albumin 3.2 L Globulin 3.4 11/20/20 11/20/20 20:27 16:53 WBC RBC Hgb Hct MCV MCH MCHC RDW Plt Count MPV Neut % (Auto) Lymph % (Auto) Whitman % (Auto) Eos % (Auto) Baso % (Auto) Neut # (Auto) Lymph # (Auto) Whitman # (Auto) Eos # (Auto) Baso # (Auto) Nucleated RBC % (a uto) Nucleated RBCs # Sodium Potassium Chloride Carbon Dioxide Anion Gap BUN Creatinine GFR Calculation Glucose POC Glucose 172 H 122 H Calculated Osmolal ity Calcium Phosphorus Magnesium Total Bilirubin AST ALT Alkaline Phosphata se Total Protein Albumin Globulin Vitals: Last Vital Signs Temp 98.3 F 11/21/20 07:16 Pulse 62 11/21/20 07:16 Resp 24 H 11/21/20 07:16 BP 97/51 11/21/20 07:16 Pulse Ox 95 11/21/20 07:16 Discharge Plan Discharge Patient Disposition: Home Condition: Stable Prescriptions: New clopidogrel 75 mg Tablet 75 mg PO DAILY Qty: 90 RF: 3 metoprolol tartrate 25 mg Tablet 25 mg PO BID@0900,2100 Qty: 120 RF: 3 metformin 500 mg tablet 500 mg PO BID 30 Days Qty: 60 RF: 0 (DME) glucometer testing kit See Rx Instructions .Route .MEDSUPPLY Qty: 1 RF: 0 Continued PreserVision AREDS [id number] capsule 1 cap PO BID@ RF: 0 biotin 1,000 mcg tablet,chewable 1,000 mcg PO DAILY@07 RF: 0 potassium chloride 10 mEq tablet extended release 10 meq PO DAILY@07 RF: 0 duloxetine [Cymbalta] 30 mg capsule,delayed release(DR/EC) 30 mg PO DAILY@2300 RF: 0 Adults Multivitamin 18 mg iron-400 mcg-25 mcg tablet 1 tab PO DAILY@07 RF: 0 omeprazole 20 mg capsule,delayed release(DR/EC) 20 mg PO DAILY@07 RF: 0 baclofen 10 mg tablet 10 mg PO DAILY PRN (Reason: muscle spasm) 90 Days Qty: 90 RF: 1 tizanidine 4 mg tablet 4 mg PO .HS PRN (Reason: muscle spasticity) 90 Days Qty: 90 RF: 1 hydrocodone-acetaminophen 5-325 mg tablet 1 tab PO TID PRN (Reason: pain) 30 Days Qty: 90 RF: 0 aspirin 81 mg Tablet,Delayed Release (Dr/Ec) 81 mg PO DAILY Qty: 90 RF: 3 atorvastatin 40 mg Tablet 40 mg PO BEDTIME Qty: 90 RF: 3 nitroglycerin 0.4 mg Tablet, Sublingual 0.4 mg sublingual Q5M PRN (Reason: Chest Pain) Qty: 30 RF: 1 lisinopril 2.5 mg Tablet 2.5 mg PO DAILY Qty: 90 RF: 3 Discontinued metoprolol tartrate 25 mg Tablet 12.5 mg PO BID@0900,2100 Qty: 90 RF: 3 Brilinta 90 mg Tablet 90 mg PO BID Qty: 180 RF: 3 Discharge Orders: Discharge Order (Routine); Ordered 11/21/20 Ordered By: Boy Goff Referrals: Ofelia Rodriguez MD [Primary Care Provider] - 11/26/20 10:30 am (This appt was scheduled on last visit. Please call if need to reschedule.) Boogie Carbone M.D [Physician] - 4-7 days Valerie Smith FNP [Nurse Practitioner] - 7-10 days Discharge Diet: Cardiac Discharge Activity: Resume usual activity Patient Instructions: Metoprolol (By mouth), Metformin (By mouth), Clopidogrel (By mouth), Coronary Angioplasty (DC), How to Check Your Blood Sugar (DC) Activity Restrictions/Additional Instructions: -You have type 2 diabetes mellitus -Check blood sugars 3 times daily with meals -If blood sugar less than 60 drink or juice or eat a hard candy and call primary care -If blood sugar greater than 500, call primary care -Please record blood sugars 3 times daily to bring blood sugar log to her primary care physician's office -Continue aspirin 81 mg, Plavix 75 mg daily -Please discard Brilinta do not use Brilinta -If you have bloody or black stools please come back to emergency room -Follow-up with primary care provider for blood work in 1 week Discharge Attestations Time Spent in Discharge Care*: greater than 30 min Quality Metrics Clinical Quality Measures During this hospital stay, did patient experience: AMI Clinical Trial Participant: No Contraindication to aspirin (AMI): Aspirin given Contraindication to statin: Statin prescribed and None Coding Level of Care Code Acute Transportation Assistant for [facility] Diagnoses NSTEMI (non-ST elevated myocardial infarction) I21.4 Coronary artery disease I25.10 Obesity E66.9
[2020-11-21 10:58] VITALS: BP 137/65; PULSE 63; RESP 22; TEMP 36.8
[2020-11-21 11:27] LABS: Glucose Point of Care 156 mg/dL (70-110)
--- NOTE | 2020-11-21 11:40 | PC.NURSE ---
spoke with Dr deleon concerning patient BG of 156 and pending discharge patient has not required insulin instructions not to give insulin
[2020-11-21 12:09] VITALS: BP 137/65; PULSE 63; RESP 22; TEMP 36.8
== END 2020-11-21 12:10 | disposition home or self-care (01) | DRG 246 ==
LOC: ER 06:50 → ICU 06:57 → CSU 11-20 16:21
PROVIDERS: Internal Medicine; Admitting Provider Internal Medicine; Emergency Provider Family Medicine; PCP Family Medicine; Visit Provider Family Medicine
PROC: 027034Z Dilation of Coronary Artery, One Artery with Drug-eluting Intraluminal Device, Percutaneous Approach (ICD-10-PCS; principal; 2020-11-19 08:00)
DX: I97.190 Other postprocedural cardiac functional disturbances following cardiac surgery (principal); I21.3 ST elevation (STEMI) myocardial infarction of unspecified site; I21.A9 Other myocardial infarction type; T82.867A Thrombosis due to cardiac prosthetic devices, implants and grafts, initial encounter; I25.110 Atherosclerotic heart disease of native coronary artery with unstable angina pectoris; Y71.1 Therapeutic (nonsurgical) and rehabilitative cardiovascular devices associated with adverse incidents; Z95.5 Presence of coronary angioplasty implant and graft; M47.816 Spondylosis without myelopathy or radiculopathy, lumbar region; Z79.891 Long term (current) use of opiate analgesic; E66.9 Obesity, unspecified; Z68.30 Body mass index [BMI] 30.0-30.9, adult; Z90.49 Acquired absence of other specified parts of digestive tract; Z87.891 Personal history of nicotine dependence; T45.516A Underdosing of anticoagulants, initial encounter; Z91.128 Patient's intentional underdosing of medication regimen for other reason; E11.9 Type 2 diabetes mellitus without complications; Z79.82 Long term (current) use of aspirin
CPT/HCPCS: 36415; 36416; 71045; 71275; 80048; 80053; 82550; 82962; 83036; 83735; 84100; 84443; 84484; 85025; 85347; 93005; 96365; 96372; 96375; 96376; 99285; C1725; C1769; C1874; C1887; C1894; C8924; C9600; J1200; J1644; J1650; J2250; J2270; J3010; J3246; J3490; J7030; Q9956; Q9967

== ENCOUNTER → 2020-11-24 12:17 | Outpatient (BNVA) | payer MEDICARE, SELFPAY | PROVIDERS: PCP Family Medicine; Visit Provider Nurse Practitioner Family | DX: I25.119 Atherosclerotic heart disease of native coronary artery with unspecified angina pectoris (principal); Z95.5 Presence of coronary angioplasty implant and graft | CPT/HCPCS: 80048 ==

== ENCOUNTER → 2021-01-11 09:42 | Outpatient (BNVA) | payer MEDICARE, SELFPAY | PROVIDERS: PCP Family Medicine; Visit Provider Nurse Practitioner | DX: M54.9 Dorsalgia, unspecified (principal); Z79.891 Long term (current) use of opiate analgesic; Z79.899 Other long term (current) drug therapy | CPT/HCPCS: 99213 ==

== ENCOUNTER → 2021-03-10 11:05 | Outpatient (BNVA) | payer MEDICARE, SELFPAY | PROVIDERS: PCP Family Medicine; Visit Provider Anesthesiology | DX: M54.9 Dorsalgia, unspecified (principal); M62.838 Other muscle spasm; Z79.891 Long term (current) use of opiate analgesic; Z79.899 Other long term (current) drug therapy; Z87.891 Personal history of nicotine dependence | CPT/HCPCS: 99213 ==

== ENCOUNTER → 2021-04-26 15:32 | Outpatient (BNVA) | payer MEDICARE, SELFPAY | PROVIDERS: PCP Family Medicine; Visit Provider Nurse Practitioner Family | DX: Z20.822 Contact with and (suspected) exposure to COVID-19 (principal) | CPT/HCPCS: 87635 ==

== ENCOUNTER → 2021-05-10 09:54 | Outpatient (BNVA) | payer MEDICARE, SELFPAY | PROVIDERS: PCP Family Medicine; Visit Provider Nurse Practitioner | DX: M54.5 Low back pain (principal); M62.838 Other muscle spasm; E66.9 Obesity, unspecified; Z68.28 Body mass index [BMI] 28.0-28.9, adult; Z79.891 Long term (current) use of opiate analgesic; Z87.891 Personal history of nicotine dependence | CPT/HCPCS: 99213 ==

== ENCOUNTER 2021-06-22 12:00 | Outpatient (CLI) | payer MEDICARE, SELFPAY | END 2021-06-22 12:01 | disposition home or self-care (01) | LOC: SLEEP 06-23 10:59 | PROVIDERS: PCP Family Medicine; Visit Provider Family Medicine | DX: G47.10 Hypersomnia, unspecified (principal) | CPT/HCPCS: G0399 ==

== ENCOUNTER → 2021-07-07 10:05 | Outpatient (BNVA) | payer MEDICARE, SELFPAY | PROVIDERS: PCP Family Medicine; Visit Provider Anesthesiology | DX: G89.29 Other chronic pain (principal); M54.50 Low back pain, unspecified; Z79.891 Long term (current) use of opiate analgesic; Z79.899 Other long term (current) drug therapy; Z87.891 Personal history of nicotine dependence | CPT/HCPCS: 99213 ==

== ENCOUNTER 2021-07-07 20:21 | Emergency (ER) | payer MEDICARE, SELFPAY ==
[2021-07-07 20:32] VITALS: BP 145/70; PULSE 89; RESP 20; TEMP 36.7; O2SAT 94; BMI 27.4
--- NOTE | 2021-07-07 20:41 | ED_ITS ---
HPI - Chest Pain General: Chief Complaint: Chest Pain Stated Complaint: Chest Pain Time Seen by Provider: 07/07/21 20:41 History of Present Illness: HPI narrative: Ms. Diez is a 76-year-old lady with significant past medical history of hypertension, hyperlipidemia, diabetes, history of STEMI with subsequent stent thrombosis who presents emergency department due to chest pain. She reports a longstanding history of issues with breathing and recently had a test for sleep apnea which showed probable sleep apnea. However earlier today she developed left anterior chest pain which is pressure in nature. She took a nitro which improved this however subsequently developed a racing heart. No associated significant shortness of breath above baseline, and no other typical cardiac features. This feels different location blood but similar quality to prior IA. No other specific exacerbating or alleviating factors identified. Review of Systems General: Reports: 10 or more systems reviewed and unremarkable except in HPI and below PFSH ED PFSH: Medical History Arthralgia, lumbar spine Chronic low back pain Encounter for long-term opiate analgesic use Long-term use of high-risk medication NSTEMI (non-ST elevated myocardial infarction) Obesity Pain management contract agreement ST elevation myocardial infarction (STEMI) Surgical History Abnormal coronary angiogram November 15, 2020 with RCA drug-eluting stent x2. See formal report History of suburethral sling procedure DR KRAMER 02/06/18 PORCINE GRAFT S/P cataract extraction S/P cholecystectomy S/P colectomy S/P right coronary artery (RCA) stent placement S/P total hysterectomy S/P tubal ligation Family History Mother Cancer LIVER CANCER Other Diabetes Hypertension Stroke Social History Second hand smoke exposure: No Alcohol intake: never History of recent travel: No Female Reproductive History: Spontaneous abortions: No Physical Exam Narrative: EXAM NARRATIVE: GENERAL/CONSTITUTIONAL - well-appearing. No acute distress. Eyes - PERRL, no conjunctival injection ENMT - Atraumatic external nose and ears. Moist mucous membranes NECK - supple. trachea midline CARDIOVASCULAR - regular rate and rhythm. Peripheral pulses 2+ and equal RESPIRATORY -crackles noted on left side. No significant respiratory distress ABDOMEN/GI - Nontender/Nondistended. MSK - Extremities without obvious deformity or tenderness to palpation SKIN - Warm, Dry NEURO - alert and appropriately oriented. Moves all extremities equally. Course ED course: - Patient was seen and evaluated by me at bedside - Patient placed on cardiac monitors, IV access obtained - Initial evaluation notable for no acute distress, nontoxic appearance. Lung sounds as noted above - Labs notable for mild leukocytosis, delta troponin negative. - Imaging notable for left-sided pneumonia. Antibiotics ordered. - Upon serial reexamination after treatment the patient was similar - Based on patient history, evaluation, labs, and imaging as interpreted the most likely cause of the patient's condition is pneumonia. - The results of ED evaluation were discussed with the patient including prescriptions and/or symptomatic cares (if applicable) including appropriate and responsible use, followup plan, and return precautions. The patient verbalized understanding and felt safe for discharge. - Patient discharged in satisfactory condition. Vital Signs: Vital signs: Vital Signs Temperature 98.1 F 07/07/21 20:32 Pulse Rate 84 07/08/21 00:06 Respiratory Rate 16 07/08/21 00:06 Blood Pressure 140/62 07/08/21 00:06 Pulse Oximetry 96 07/08/21 00:06 MDM - Chest Pain Medical Records: Attestation: I reviewed the patient's medical records. Lab Data: Attestation: I reviewed the patient's lab results. Labs: Lab Results 07/07/21 07/07/21 07/07/21 21:00 21:00 21:00 WBC 11.6 10^3/uL H 10 ^3/uL (4.0-10.0) RBC 4.43 10^6/uL 10^6 /uL (4.1-5.3) Hgb 11.9 g/dL g/dL (11.5-15.3) Hct 36.2 % L % (37.0-47.0) MCV 81.7 fl fl (81-99) MCH 26.9 pg L pg (28.0-34.0) MCHC 32.9 g/dL g/dL (30.0-36.0) RDW 14.1 % % (12.1-15.1) Plt Count 602 10^3/cmm H 10 ^3/cmm (130-400) MPV 9.1 fL fL (7.4-10.4) Neut % (Auto) 71.7 % % Lymph % (Auto) 15.9 % % [place] % (Auto) 7.5 % % Eos % (Auto) 4.0 % % Baso % (Auto) 0.4 % % Neut # (Auto) 8.29 10^3/uL H 10 ^3/uL (1.8-7.7) Lymph # (Auto) 1.8 10^3/uL 10^3/ uL (0.8-4.8) [place] # (Auto) 0.9 10^3/uL 10^3/ uL (0.2-0.9) Eos # (Auto) 0.5 10^3/uL 10^3/ uL (0.0-0.8) Baso # (Auto) 0.1 10^3/uL 10^3/ uL (0.0-0.1) Nucleated RBC % (a uto) 0 % % Nucleated RBCs # 0.0 /100WBC /100W BC Sodium 138 mmol/L mmol/L (136-145) Potassium 4.2 mmol/L mmol/L (3.5-5.1) Chloride 99 mmol/L mmol/L (98-107) Carbon Dioxide 26 mmol/L mmol/L (22-29) Anion Gap 17.2 (5-19) BUN 20 mg/dL mg/dL (8-23) Creatinine 0.6 mg/dL mg/dL (0.5-0.9) GFR Calculation Not Reportable Glucose 175 mg/dL H mg/dL (65-115) Calculated Osmolal ity 293 mOsm/kg mOsm/ kg (285-295) Calcium 9.0 mg/dL mg/dL (8.5-10.5) Total Bilirubin 0.5 mg/dL mg/dL (0.15-1.2) AST 17 U/L U/L (0-32) ALT 20 U/L U/L (0-33) Alkaline Phosphata se 111 IU/L H IU/L (35-105) Troponin T Baselin e 11 ng/L H ng/L (0-10) Troponin T 120 Min [place] Delta Troponin T NT-Pro-B Natriuret Pep 128 pg/mL H pg/mL (0-125) Total Protein 7.4 g/dL g/dL (6.6-8.7) Albumin 3.3 g/dL L g/dL (3.5-5.2) Globulin 4.1 g/dL g/dL (1.3-4.6) Lipase 12 U/L L U/L (13-60) 07/07/21 23:00 WBC RBC Hgb Hct MCV MCH MCHC RDW Plt Count MPV Neut % (Auto) Lymph % (Auto) [place] % (Auto) Eos % (Auto) Baso % (Auto) Neut # (Auto) Lymph # (Auto) [place] # (Auto) Eos # (Auto) Baso # (Auto) Nucleated RBC % (a uto) Nucleated RBCs # Sodium Potassium Chloride Carbon Dioxide Anion Gap BUN Creatinine GFR Calculation Glucose Calculated Osmolal ity Calcium Total Bilirubin AST ALT Alkaline Phosphata se Troponin T Baselin e Troponin T 120 Min [place] 10.89 ng/L H ng/L (0-10) Delta Troponin T -0.11 ABS# L ABS# (0-10) NT-Pro-B Natriuret Pep Total Protein Albumin Globulin Lipase EKG Data^: EKG 1: Attestation: I personally reviewed and interpreted this EKG as follows: EKG interpretation date: 07/07/21 EKG interpretation time: 20:37 Interpretation: Twelve-lead EKG shows a regular rhythm at a rate of approximately 80 (incorrectly measured by computer interpretation) WV interval 173, QRS duration 88, QTc 318 Normal axis Interpretation: Sinus rhythm Discharge Plan Discharge Patient Disposition: Home Clinical Impression: Pneumonia Condition: Stable Prescriptions: New cefpodoxime 200 mg tablet 200 mg PO BID Qty: 20 RF: 0 doxycycline hyclate 100 mg tablet 100 mg PO BID 10 Days Qty: 20 RF: 0 No Action PreserVision AREDS [id number] capsule 1 cap PO BID@ RF: 0 metformin 500 mg tablet 500 mg PO DAILY RF: 0 baclofen 10 mg tablet 10 mg PO DAILY PRN (Reason: muscle spasm) 90 Days Qty: 90 RF: 1 hydrocodone-acetaminophen 5-325 mg tablet 1 tab PO TID PRN (Reason: pain) 30 Days Qty: 90 RF: 0 hydrocodone-acetaminophen 5-325 mg tablet 1 tab PO Q8H PRN (Reason: pain) 30 Days Qty: 90 RF: 0 biotin 1,000 mcg tablet,chewable 1,000 mcg PO DAILY@07 RF: 0 potassium chloride 10 mEq tablet extended release 10 meq PO DAILY@07 RF: 0 duloxetine [Cymbalta] 30 mg capsule,delayed release(DR/EC) 30 mg PO DAILY@2300 RF: 0 Adults Multivitamin 18 mg iron-400 mcg-25 mcg tablet 1 tab PO DAILY@07 RF: 0 tizanidine 4 mg tablet 4 mg PO .HS PRN (Reason: muscle spasticity) 90 Days Qty: 90 RF: 1 metoprolol tartrate 25 mg tablet 25 mg PO BID@0900,2100 Qty: 180 RF: 3 atorvastatin 40 mg tablet 40 mg PO BEDTIME Qty: 90 RF: 3 clopidogrel 75 mg tablet 75 mg PO DAILY Qty: 90 RF: 3 (DME) glucometer testing kit See Rx Instructions .Route .MEDSUPPLY Qty: 1 RF: 0 aspirin 81 mg Tablet,Delayed Release (Dr/Ec) 81 mg PO DAILY Qty: 90 RF: 3 nitroglycerin 0.4 mg Tablet, Sublingual 0.4 mg sublingual Q5M PRN (Reason: Chest Pain) Qty: 30 RF: 1 lisinopril 2.5 mg Tablet 2.5 mg PO DAILY Qty: 90 RF: 3 Discharge Orders: Discharge ED (Routine); Ordered 07/07/21 Ordered By: Joaquim Sun Referrals: Ofelia Rodriguez MD [Primary Care Provider] - Discharge Diet: Usual diet Discharge Activity: Resume usual activity Patient Instructions: Chest Pain (ED), Community Acquired Pneumonia (ED) Activity Restrictions/Additional Instructions: Thank you for visiting the emergency department. You were seen and evaluated for chest pain. The exact cause of your symptoms is unclear though is likely related to pneumonia. Please follow-up with your primary care provider. Please return for worsening symptoms or anything else that you are concerned about and feel needs emergency department evaluation. 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
--- NOTE | 2021-07-07 20:42 | XRR_ITS ---
PROCEDURE INFORMATION: Exam: XR Chest Exam date and time: 07/07/2021 8:42 PM Age: 76 years old Clinical indication: Pain; Left-sided; Additional info: Chest pain TECHNIQUE: Imaging protocol: XR of the chest. Views: 1 view. COMPARISON: CR XR chest 1V portable [id number] 11/19/2020 6:08 AM FINDINGS: Limitations: Patient is rotated towards the left. Lungs: Visualized portions of the right lung are clear. There is volume loss and consolidation in the periphery of the left upper lobe new compared with 11/19/2020 and concerning for pneumonia . Pleural spaces: No pleural effusion is identified. Heart/Mediastinum: The heart is within normal limits of size. Bones/joints: Unremarkable. XR/XR chest 1V portable [id number] IMPRESSION: Peripheral consolidation left upper lobe concerning for pneumonia. Follow-up radiographs are recommended to document complete clearing. Radiation Dose CTDIVOL = (mGy): DLP = (mGy-cm)
[2021-07-07 21:06] VITALS: BP 149/67; PULSE 83; RESP 16; O2SAT 93
[2021-07-07] MEDS: aspirin 81 mg Chew Tablet 324 MG PO (21:10)
[2021-07-07 21:12] LABS: Basophils # 0.1 10^3/uL (0.0-0.1); Basophils % 0.4 %; Eosinophils # 0.5 10^3/uL (0.0-0.8); Hematocrit 36.2 % (37.0-47.0); Hemoglobin 11.9 g/dL (11.5-15.3); Lymphocytes # 1.8 10^3/uL (0.8-4.8); Lymphocytes % 15.9 %; Mean Corpuscular HGB Conc 32.9 g/dL (30.0-36.0); Mean Corpuscular Hemoglobin 26.9 pg (28.0-34.0); Mean Corpuscular Volume 81.7 fl (81-99); Mean Platelet Volume 9.1 fL (7.4-10.4); Monocytes # 0.9 10^3/uL (0.2-0.9); Monocytes % 7.5 %; Neutrophils # 8.29 10^3/uL (1.8-7.7); Neutrophils % 71.7 %; Nucleated Red Blood Cells % 0 %; Platelet Count 602 10^3/cmm (130-400); Red Blood Count 4.43 10^6/uL (4.1-5.3); Red Cell Distribution Width 14.1 % (12.1-15.1); White Blood Count 11.6 10^3/uL (4.0-10.0)
[2021-07-07] MEDS: cefTRIAXone 1,000 MG in sodium chloride 0.9% (plus) 50 ML 100 MG IV (21:41)
[2021-07-07 21:49] LABS: Troponin(5th) Baseline 11 ng/L (0-10)
[2021-07-07 21:56] LABS: Alanine Aminotransferase 20 U/L (0-33); Albumin Level 3.3 g/dL (3.5-5.2); Alkaline Phosphatase 111 IU/L (35-105); Anion Gap 17.2 (5-19); Aspartate Amino Transferase 17 U/L (0-32); Blood Urea Nitrogen 20 mg/dL (8-23); Carbon Dioxide 26 mmol/L (22-29); Chloride 99 mmol/L (98-107); Creatinine Clr Calc Pharmacy 60.2393; Globulin 4.1 g/dL (1.3-4.6); Glucose 175 mg/dL (65-115); Lipase 12 U/L (13-60); NT Pro B Type Natriuretic Pept 128 pg/mL (0-125); Osmolality Calculated 293 mOsm/kg (285-295); Potassium 4.2 mmol/L (3.5-5.1); Sodium 138 mmol/L (136-145); Total Bilirubin 0.5 mg/dL (0.15-1.2); Total Protein 7.4 g/dL (6.6-8.7)
[2021-07-07 22:25] VITALS: BP 148/58; PULSE 83; RESP 16; O2SAT 96
[2021-07-07] MEDS: doxycycline 100 MG in sodium chloride 0.9% (plus) 100 ML IV (22:25)
[2021-07-07 23:38] LABS: Troponin 5 2HR 10.89 ng/L (0-10)
[2021-07-07 23:39] LABS: Troponin 5 2HR Delta -0.11 ABS# (0-10)
[2021-07-08 00:06] VITALS: BP 140/62; PULSE 84; RESP 16; O2SAT 96
== END 2021-07-08 00:08 | disposition home or self-care (01) ==
PROVIDERS: Emergency Provider Emergency Medicine; PCP Family Medicine
DX: J18.9 Pneumonia, unspecified organism (principal); Z79.84 Long term (current) use of oral hypoglycemic drugs; Z79.02 Long term (current) use of antithrombotics/antiplatelets; Z79.82 Long term (current) use of aspirin; I25.2 Old myocardial infarction
CPT/HCPCS: 71045; 80053; 83690; 83880; 84484; 85025; 96365; 96367; 99284; J0696; J3490

== ENCOUNTER 2021-07-27 07:11 | Outpatient (CLI) | payer MEDICARE, SELFPAY ==
[2021-07-27 07:20] VITALS: BMI 27.9
--- NOTE | 2021-07-27 07:20 | ECG_ITS ---
[facility] Test Date: 2021-07-27 Pat Name: Bernice Diez Department: Room: Gender: Female [employer] Agent: : 1945 Requested By: Boogie Carbone Order Number: [id number] Ryan MD: Boogie Carbone M.D. Interpretive Statements NAME OF STUDY: LEXISCAN SESTAMIBI STRESS TEST INDICATION: [Chest Pain; Dyspnea on Exertion] Procedure: At the baseline, the blood pressure was 129/55 mmHg with a heart rate of 65bpm. The electrocardiogram showed normal sinus rhythm, normal axis with normal ST and T's. The Lexiscan was infused over a period of 20 seconds. A total of 0.4 mg of Lexiscan was infused. The stress phase was continued for a total of 5 minutes. Heart rate was at the end of stress phase was 80 bpm and a blood pressure of 120/47 mmHg. The EKG at the peak infusion revealed since normal sinus rhythm with no significant ST-T wave changes. Sestamibi was injected 20 seconds after the Lexiscan infusion. Blood pressure at the end of recovery phase was 122/54 mmHg with a heart rate of 81 bpm. Conclusion: 1. Normal EKG response to Lexiscan infusion 2. No Lexiscan induced chest pain or cardiac arrhythmia. 3. Normal blood pressure and heart rate response. 4. Sestamibi/sestamibi perfusion scan pending; see separate report. Electronically Signed On 08-01-2021 11:27:[address]GE by Boogie Carbone M.D. [email or web address]
--- NOTE | 2021-07-27 07:21 | NMCV_ITS ---
NM nadia perf SPECT r/s* [id number] Bernice Diez Age: 76 Gender: F : 1945 Exam Date: 07/27/2021 09:25 Ordering Phys: Boogie Carbone M.D ([email or web address]) Technologist: PATRICIA Huffman Exam Location: [facility] Indications: HEART DISEASE STRESS TEST Please see separate stress test report in [facility] for full findings IMAGE PROTOCOL Rest/Stress 1 Lexiscan Day Radiopharmaceutical Dose (mCi) Administration Site Administered by Rest: Tc-99m 10.5 IV PATRICIA Zambrano Sestamibi Stress:Tc-99m 32.6 IV PATRICIA Zambrano Sestamibi Rest: 27-Jul-2021 60 Discovery 630 Stress: 27-Jul-2021 30 Discovery 630 0.4mg Lexiscan. Images obtained in supine and prone position. SPECT RESULTS Technical Quality: Excellent Raw Data Analysis: Normal Image Corrections: No attenuation or motion correction applied Summed Stress Score: 8 Summed Rest Score: 2 Summed Difference Score: 6 PERFUSION FINDINGS There is small sized reversible perfusion defect noted in apical, inferolateral and anterolateral manzo. This is consistent with ischemia. FUNCTIONAL RESULTS (calculated via Gated SPECT) Stress Image LV EF (%): 79 Stress EDV (mL):72 TID: 0.93 Stress ESV (mL):15 FUNCTIONAL FINDINGS: There is normal left ventricular systolic function. IMPRESSIONS 1. Abnormal myocardial perfusion imaging with ischemia noted in apical, inferolateral and anterolateral manzo. 2. LV systolic function is normal. Boogie Carbone MD (Electronically Signed) Final Date: 30 July 2021 21:28 S
[2021-07-27] MEDS: regadenoson 0.4 Mg/5 ml Syringe IVP (08:55)
--- NOTE | 2021-07-27 08:56 | SUR.PREOP ---
No pain reported prior to start of the stress exam.
[2021-07-27 09:10] VITALS: BP 125/55; PULSE 80
== END 2021-07-27 07:12 | disposition home or self-care (01) ==
LOC: CDL 07:12
PROVIDERS: PCP Family Medicine; Visit Provider Internal Medicine
DX: R06.09 Other forms of dyspnea (principal); R07.9 Chest pain, unspecified; I25.9 Chronic ischemic heart disease, unspecified
CPT/HCPCS: 78452; 93017; A9500; J2785

== ENCOUNTER 2021-07-28 11:10 | Outpatient (CLI) | payer MEDICARE, SELFPAY ==
--- NOTE | 2021-07-28 11:19 | XR_ITS ---
WS: [id number] PA and lateral chest, 07/28/2021 Clinical Data: PNEUMONIA Comparison: Portable chest, 07/07/2021. Findings: No nodules, masses or effusions are seen. The peripheral opacity in the left upper lobe has cleared with only a small residual. There is shift of the heart and mediastinum from left to right. The right lung is clear. The heart is normal. The aortic arch shows calcification. XR/XR chest 2V* [id number] Impression: 1. Partial clearing of peripheral left upper lobe opacity. 2. Recommend follow-up chest x-ray in one to 2 weeks.
== END 2021-07-28 11:11 | disposition home or self-care (01) ==
PROVIDERS: PCP Family Medicine; Visit Provider Family Medicine
DX: J18.9 Pneumonia, unspecified organism (principal)
CPT/HCPCS: 71046

== ENCOUNTER 2021-08-11 09:45 | Outpatient (CLI) | payer MEDICARE, SELFPAY ==
--- NOTE | 2021-08-11 09:51 | XR_ITS ---
WS: [id number] Exam: XR chest 2V* [id number] Date/Time of Exam: 08/11/2021 9:51 AM Reason For Exam: PNEUMONIA Comparison 07/28/2021. There is infiltrate in the left upper lobe showing little change since prior study. Small left basal pleural effusion. Heart size is within normal limits. The mediastinum is not widened. The right lung is clear and fully inflated. Regional bony elements are intact. Signs of coronary artery stenting. XR/XR chest 2V* [id number] IMPRESSION: 1. Left upper lobe pneumonia showing little change. Left basal pleural effusion and atelectasis.
== END 2021-08-11 09:46 | disposition home or self-care (01) ==
PROVIDERS: PCP Family Medicine; Visit Provider Family Medicine
DX: J18.9 Pneumonia, unspecified organism (principal); J90 Pleural effusion, not elsewhere classified; J98.11 Atelectasis
CPT/HCPCS: 71046

== ENCOUNTER 2021-08-23 08:51 | Outpatient (CLI) | payer MEDICARE, SELFPAY ==
--- NOTE | 2021-08-23 09:04 | CT_ITS ---
WS: [id number] CT CHEST WITH INTRAVENOUS CONTRAST HISTORY: PNEUMONIA UNSPECIFIED ORGANISM, HYPOXIA, ABNORMAL X-RAY TECHNIQUE: Contiguous 5 mm axial imaging performed on the thorax. Coronal and sagittal reformats are submitted. All CT scans at [facility] use at least one of these dose optimization techniques: automated exposure control; mA and/or kV adjustment per patient size (includes targeted exams where dose is matched to clinical indication); or iterative reconstruction. CONTRAST: Omnipaque 300; 95 mL IV. DLP: 820.35 mGycm COMPARISON: 11/19/2020 and 08/11/2021 Lungs and central airway: Significant progression of the airspace disease involving the LEFT upper an d LEFT lower lobes since the prior chest radiograph of 08/11/2021. Largest airspace disease within th e LEFT lower lobe abuts the fissure. There is an additional 7 mm nodule along the LEFT diaphragmatic surface with subsegmental LEFT basilar atelectasis. There is groundglass attenuation with haziness in volving majority of the LEFT upper lobe with airspace disease involving a small portion towards the l ingula. There is very mild volume loss and shift of the mediastinal structures to the LEFT. Focal are a of very mild subsolid opacification in the posterior RIGHT upper lobe. Pleura: Small layering LEFT pleural effusion. Heart and pericardium: Very minimal prominence of the heart. No pericardial effusion. Mediastinum and bowen: High RIGHT paratracheal 8mm lymph node unchanged since 11/19/2020. Inferior 8mm RIGHT paratracheal lymph node. There are several additional mediastinal and hilar lymph nodes that ar e all slightly more prominent as compared to 11/19/2020. Mild circumferential thickening of the esopha aaron. Vessels: Mild atherosclerosis aorta and proximal great vessels. Pulmonary artery size is normal. Chest wall and lower neck: No soft tissue masses. Upper abdomen: Small hiatal hernia. Visualized liver is normal. Prior cholecystectomy. No adrenal mas s. Visualized spleen is negative. Visualized pancreas is partially atrophic. Osseous structures: Increase in thoracic kyphosis. CT/CT chest w con* [id number] IMPRESSION: 1. Moderate progression of LEFT upper and lower lobe groundglass attenuation a nd airspace disease from pneumonia since the radiograph of 08/11/2021. Most den se consolidation is along the superior segment of the LEFT lower lobe. There is also very mild volume loss and shift of the mediastinal structures to the LEFT . Highly suspicious for pneumonia with component of atelectasis. Recommend foll ow-up chest CT as pneumonia resolves to ensure no underlying neoplasm. 2. Small layering LEFT pleural effusion. 3. Very tiny subsolid opacification posterior RIGHT upper lobe may be an addit ional site of developing pneumonia. 4. Very minimal increase in size of the mediastinal and hilar lymph nodes sinc e 11/19/2020. 5. Prior cholecystectomy. 6. Mild diffuse esophageal wall thickening.
[2021-08-23] MEDS: iohexol 300 mg/mL 100 mL Btl IV (10:31)
== END 2021-08-23 08:52 | disposition home or self-care (01) ==
PROVIDERS: PCP Family Medicine; Visit Provider Family Medicine
DX: J18.9 Pneumonia, unspecified organism (principal); R09.02 Hypoxemia; R91.8 Other nonspecific abnormal finding of lung field; Z90.49 Acquired absence of other specified parts of digestive tract; J90 Pleural effusion, not elsewhere classified
CPT/HCPCS: 71260; Q9967

== ENCOUNTER → 2021-08-30 14:22 | Outpatient (BNVA) | payer MEDICARE, SELFPAY | PROVIDERS: PCP Family Medicine; Visit Provider Nurse Practitioner Family | DX: Z20.822 Contact with and (suspected) exposure to COVID-19 (principal) | CPT/HCPCS: 87635 ==

== ENCOUNTER 2021-09-01 14:09 | Outpatient (CLI) | payer MEDICARE, SELFPAY ==
--- NOTE | 2021-09-01 14:15 | USCV_ITS ---
Bernice Diez Age: 76 Gender: F : 1945 Exam Date: 09/01/2021 14:29 Ordering Phys: Boogie Carbone M.D ([email or web address]) Technologist: Cynthia Wiley [place]am Location[place] [facility] [place] Indication: DYSPNEA BP: 110 / 62 HR: 63 Rhythm: Sinus Technical Quality: Adequate MEASUREMENTS (Male / Female) Normal Values 2D ECHO LV Diastolic Diameter PLAX 4.4 cm 4.2 - 5.9 / 3.9 - 5.3 cm LV Systolic Diameter PLAX 3.0 cm IVS Diastolic Thickness 1.4 cm 0.6 - 1.0 / 0.6 - 0.9 cm IVS Systolic Thickness 1.8 cm LVPW Diastolic Thickness 1.5 cm 0.6 - 1.0 / 0.6 - 0.9 cm LVPW Systolic Thickness 2.0 cm LVOT Diameter 2.0 cm LV Ejection Fraction 2D Teich 59.2 % LV Ejection Fraction MOD 2C 63.2 % LV Ejection Fraction 2C AL 65.6 % LA Diameter 2.9 cm LA Width 3.5 cm LA Height 4.2 cm RA Width 3.3 cm RA Height 4.3 cm Aorta at Sinotubular Diameter 2.0 cm M-MODE Aortic Annulus Diameter 2.6 cm LA Ao Ratio MM 1.1 MV E Point Septal Separation 0.3 cm DOPPLER AV Peak Velocity 136.0 cm/s LVOT Peak Velocity 131.0 cm/s AV Area Cont Eq vti 3.5 cm squared AV Area Cont Eq pk 3.0 cm squared MV Peak Velocity 126.0 cm/s MV Area PHT 2.7 cm squared Mitral E to A Ratio 0.9 MV E' Velocity 59.5 cm/s Mitral E to MV E' Ratio 13.5 Mitral E to LV E' Lateral Ratio 12.9 Mitral E to LV E' Septal Ratio 14.2 TR Peak Velocity 308.0 cm/s TR Peak Gradient 38.0 mmHg TR Mean Velocity 266.3 cm/s TR Mean Gradient 30.5 mmHg TR Velocity Time Integral 95.5 cm TV Peak E Velocity 47.0 cm/s Right Atrial Pressure 3.0 mmHg Pulmonary Artery Systolic Pressu 41.0 mmHg PV Peak Velocity 129.0 cm/s RV Acceleration Time 0.1 s RV Ejection Time 0.3 s RV AcT/ET 0.3 FINDINGS Left Ventricle Normal left ventricular size. LV systolic function is normal with EF of 55-60%. No regional wall motion abnormalities. Grade 1 diastolic dysfunction Right Ventricle The right ventricle is normal in size and function. Right Atrium The right atrium is normal in size. Left Atrium The left atrium is normal in size. Mitral Valve Mild mitral annular calcification without significant stenosis or prolapse. There is mild mitral regurgitation. Aortic Valve Structurally normal aortic valve without significant sclerosis or stenosis. There is no aortic regurgitation. Tricuspid Valve Structurally normal tricuspid valve without significant stenosis . Trace tricuspid regurgitation. Insufficient TR jet to calculate RVSP Pulmonic Valve Structurally normal pulmonic valve without significant stenosis. There is no pulmonic regurgitation. Pericardium Normal pericardium without effusion. Aorta Normal ascending aorta dimension. CONCLUSIONS LV systolic function is normal with EF of 55-60% Grade 1 diastolic dysfunction Mild mitral regurgitation Trace tricuspid regurgitation Compared to prior echocardiogram from 11/15/2020, no significant change is noted Boogie Carbone MD (Electronically Signed) Final Date: 05 September 2021 14:26 S
== END 2021-09-01 14:10 | disposition home or self-care (01) ==
LOC: RAD 14:10
PROVIDERS: PCP Family Medicine; Visit Provider Internal Medicine
DX: R06.00 Dyspnea, unspecified (principal); I08.1 Rheumatic disorders of both mitral and tricuspid valves
CPT/HCPCS: 93306

== ENCOUNTER → 2021-10-06 09:58 | Outpatient (BNVA) | payer MEDICARE, SELFPAY | PROVIDERS: PCP Family Medicine; Visit Provider Anesthesiology | DX: G89.29 Other chronic pain (principal); M54.50 Low back pain, unspecified; Z79.891 Long term (current) use of opiate analgesic; Z79.899 Other long term (current) drug therapy; Z87.891 Personal history of nicotine dependence | CPT/HCPCS: 99213 ==

== ENCOUNTER 2021-11-16 11:54 | Outpatient (CLI) | payer MEDICARE, SELFPAY ==
--- NOTE | 2021-11-16 12:18 | MM_ITS ---
WS: [id number] BILATERAL DIGITAL SCREENING MAMMOGRAPHY WITH CAD CLINICAL INFORMATION: SCREENING HISTORY: Screening mammogram. No current complaints. COMPARISON: None. TECHNIQUE: Bilateral CC and MLO views. FINDINGS: Scattered fibroglandular densities bilaterally. Vascular calcification. No suspicious focal mass, asy mmetry, calcifications, or architectural distortion. No evidence of malignancy. MM/[place] [id number] IMPRESSION: BI-RADS: 2-Benign FOLLOW UP: 1 Year Follow-up Recommend return to annual screening mammography.
== END 2021-11-16 11:55 | disposition home or self-care (01) ==
PROVIDERS: PCP Family Medicine; Visit Provider Family Medicine
DX: Z12.31 Encounter for screening mammogram for malignant neoplasm of breast (principal)
CPT/HCPCS: 77067

== ENCOUNTER → 2021-12-13 09:05 | Outpatient (BNVA) | payer MEDICARE, SELFPAY | PROVIDERS: PCP Family Medicine; Visit Provider Anesthesiology Pain Medicine | DX: G89.29 Other chronic pain (principal); M54.50 Low back pain, unspecified; Z79.891 Long term (current) use of opiate analgesic; Z87.891 Personal history of nicotine dependence | CPT/HCPCS: 99204; 99205 ==

== ENCOUNTER → 2021-12-23 10:28 | Outpatient (BNVA) | payer MEDICARE, SELFPAY | PROVIDERS: PCP Family Medicine; Visit Provider Internal Medicine | DX: Z09 Encounter for follow-up examination after completed treatment for conditions other than malignant neoplasm (principal); I25.119 Atherosclerotic heart disease of native coronary artery with unspecified angina pectoris; E11.9 Type 2 diabetes mellitus without complications; Z87.891 Personal history of nicotine dependence; Z79.84 Long term (current) use of oral hypoglycemic drugs; Z79.82 Long term (current) use of aspirin; Z79.01 Long term (current) use of anticoagulants | CPT/HCPCS: 99214 ==

== ENCOUNTER → 2022-01-10 09:44 | Outpatient (BNVA) | payer MEDICARE, SELFPAY | PROVIDERS: PCP Family Medicine; Visit Provider Anesthesiology Pain Medicine | DX: G89.29 Other chronic pain (principal); M47.816 Spondylosis without myelopathy or radiculopathy, lumbar region; M51.16 Intervertebral disc disorders with radiculopathy, lumbar region; M79.604 Pain in right leg; M79.605 Pain in left leg; Z79.891 Long term (current) use of opiate analgesic; Z87.891 Personal history of nicotine dependence | CPT/HCPCS: 99214 ==

== ENCOUNTER 2022-01-16 07:54 | Outpatient (CLI) | payer MEDICARE, SELFPAY ==
--- NOTE | 2022-01-16 08:45 | MR_ITS ---
WS: [id number] MRI LUMBAR SPINE NONCONTRAST TECHNIQUE: Sagittal T1, T2 and STIR imaging. Axial T1 and T2 imaging. CLINICAL INFORMATION: M48.062 - Spinal stenosis, lumbar region with neurogenic ... COMPARISON: None. FINDINGS: Mild lumbar curve. No acute compression. Slight anterolisthesis L4 on L5. L1-L2: Mild disc bulging. Mild facet arthropathy. Spinal canal and foramen are patent. L2-L3: Mild disc bulging. Mild facet arthropathy. Spinal canal and foramen are patent. L3-L4: Disc bulging in combination with facet arthropathy ligamentum flavum hypertrophy results in se sawyer central canal stenosis. Impingement on traversing L4 nerve roots bilaterally. Mild RIGHT foramin al narrowing. L4-L5: Disc bulging in combination with facet arthropathy ligamentum flavum flavum hypertrophy result s in severe central canal stenosis. Impingement traversing L5 nerve roots bilaterally. Advanced facet arthropathy. Foramen are patent. L5-S1: Mild disc bulging with slight effacement of the ventral thecal sac. Slight contact of the kaylyn ersing S1 nerve roots bilaterally. Moderate facet arthropathy. Foramen are patent. Visualized pelvic bony structures: Normal. Paravertebral soft tissues: Normal. MR/MR lumbar spine wo con* [id number] IMPRESSION: 1. Mild lumbar curve. No acute compression. 2. Severe central canal stenosis L3-L4 and L4-L5 due to disc bulging in combin ation with facet arthropathy and ligamentum flavum hypertrophy. Central canal s tenosis worse at L4-L5. 3. Impingement on the traversing L4 and L5 nerve roots bilaterally. 4. Mild annular bulging L5-S1 with slight contact of the S1 nerve roots withou t significant impingement. 5. Moderate facet arthropathy L3-L4 and L4-L5.
== END 2022-01-16 07:55 | disposition home or self-care (01) ==
LOC: RAD 07:55
PROVIDERS: PCP Family Medicine; Visit Provider Anesthesiology Pain Medicine
DX: M48.062 Spinal stenosis, lumbar region with neurogenic claudication (principal); M51.27 Other intervertebral disc displacement, lumbosacral region
CPT/HCPCS: 72148

== ENCOUNTER → 2022-02-07 09:45 | Outpatient (BNVA) | payer MEDICARE, SELFPAY | PROVIDERS: PCP Family Medicine; Visit Provider Anesthesiology Pain Medicine | DX: G89.29 Other chronic pain (principal); M47.816 Spondylosis without myelopathy or radiculopathy, lumbar region; M51.16 Intervertebral disc disorders with radiculopathy, lumbar region; M79.604 Pain in right leg; M79.605 Pain in left leg; Z87.891 Personal history of nicotine dependence; Z79.891 Long term (current) use of opiate analgesic | CPT/HCPCS: 99214 ==

== ENCOUNTER → 2022-03-09 10:50 | Outpatient (BNVA) | payer MEDICARE, SELFPAY | PROVIDERS: PCP Family Medicine; Visit Provider Anesthesiology Pain Medicine | DX: G89.29 Other chronic pain (principal); M47.816 Spondylosis without myelopathy or radiculopathy, lumbar region; M51.16 Intervertebral disc disorders with radiculopathy, lumbar region; M79.604 Pain in right leg; M79.605 Pain in left leg; M54.2 Cervicalgia; Z87.891 Personal history of nicotine dependence; Z79.891 Long term (current) use of opiate analgesic | CPT/HCPCS: 99214 ==

== ENCOUNTER → 2022-04-12 08:49 | Outpatient (BNVA) | payer MEDICARE, SELFPAY | PROVIDERS: PCP Family Medicine; Visit Provider Anesthesiology Pain Medicine | DX: G89.29 Other chronic pain (principal); M47.816 Spondylosis without myelopathy or radiculopathy, lumbar region; M51.16 Intervertebral disc disorders with radiculopathy, lumbar region; M79.604 Pain in right leg; M79.605 Pain in left leg; Z87.891 Personal history of nicotine dependence; Z79.891 Long term (current) use of opiate analgesic | CPT/HCPCS: 99214 ==

== ENCOUNTER → 2022-05-11 08:45 | Outpatient (BNVA) | payer MEDICARE, SELFPAY | PROVIDERS: PCP Family Medicine; Visit Provider Anesthesiology Pain Medicine | DX: G89.29 Other chronic pain (principal); M47.816 Spondylosis without myelopathy or radiculopathy, lumbar region; M51.16 Intervertebral disc disorders with radiculopathy, lumbar region; Z79.891 Long term (current) use of opiate analgesic; Z87.891 Personal history of nicotine dependence | CPT/HCPCS: 99214 ==

== ENCOUNTER → 2022-06-08 08:42 | Outpatient (BNVA) | payer MEDICARE, SELFPAY | PROVIDERS: PCP Family Medicine; Visit Provider Anesthesiology Pain Medicine | DX: G89.29 Other chronic pain (principal); M47.816 Spondylosis without myelopathy or radiculopathy, lumbar region; M51.16 Intervertebral disc disorders with radiculopathy, lumbar region; M79.604 Pain in right leg; M79.605 Pain in left leg; Z87.891 Personal history of nicotine dependence | CPT/HCPCS: 99214 ==

== ENCOUNTER → 2022-06-30 11:07 | Outpatient (BNVA) | payer MEDICARE, SELFPAY | PROVIDERS: PCP Family Medicine; Visit Provider Internal Medicine | DX: I25.119 Atherosclerotic heart disease of native coronary artery with unspecified angina pectoris (principal); I25.2 Old myocardial infarction; Z95.1 Presence of aortocoronary bypass graft; Z87.891 Personal history of nicotine dependence; E11.9 Type 2 diabetes mellitus without complications; Z79.84 Long term (current) use of oral hypoglycemic drugs | CPT/HCPCS: 99214 ==

== ENCOUNTER → 2022-07-04 09:06 | Outpatient (BNVA) | payer MEDICARE, SELFPAY | PROVIDERS: PCP Family Medicine; Visit Provider Anesthesiology Pain Medicine | DX: G89.29 Other chronic pain (principal); M47.816 Spondylosis without myelopathy or radiculopathy, lumbar region; M51.16 Intervertebral disc disorders with radiculopathy, lumbar region; Z79.891 Long term (current) use of opiate analgesic; M79.604 Pain in right leg; M79.605 Pain in left leg; M54.2 Cervicalgia; Z87.891 Personal history of nicotine dependence | CPT/HCPCS: 99214 ==

== ENCOUNTER → 2022-08-10 09:49 | Outpatient (BNVA) | payer MEDICARE, SELFPAY | PROVIDERS: PCP Family Medicine; Visit Provider Anesthesiology Pain Medicine | DX: M79.604 Pain in right leg (principal); M79.605 Pain in left leg; Z87.891 Personal history of nicotine dependence; G89.29 Other chronic pain; M47.816 Spondylosis without myelopathy or radiculopathy, lumbar region; M51.16 Intervertebral disc disorders with radiculopathy, lumbar region | CPT/HCPCS: 99214 ==

== ENCOUNTER 2022-10-12 15:49 | Outpatient (CLI) | payer MEDICARE, SELFPAY ==
--- NOTE | 2022-10-12 16:04 | XRR_ITS ---
PROCEDURE INFORMATION: Exam: XR Right Shoulder Exam date and time: 10/12/2022 4:24 PM Age: 77 years old Clinical indication: Injury or trauma; Fall; Blunt trauma (contusions or hematomas); Injury details: History--fell 2 weeks ago; Landing on right shoulder. Cannot raise RT arm without help and has pain when doing so; Additional info: Pain in RT shoulder TECHNIQUE: Imaging protocol: Radiologic exam of the Right shoulder. Views: 2 or more views. COMPARISON: CT chest w con* [id number] 08/23/2021 9:27 AM FINDINGS: Bones/joints: The bones are intact and in normal alignment. Hypertrophic degenerative changes of the acromioclavicular joint. Inferior acromial spur. Soft tissues: Normal. XR/XR shoulder RT min 2V* [id number] IMPRESSION: No acute findings.
== END 2022-10-12 15:50 | disposition home or self-care (01) ==
PROVIDERS: PCP Family Medicine; Visit Provider Family Medicine
DX: M25.511 Pain in right shoulder (principal)
CPT/HCPCS: 73030

== ENCOUNTER 2022-10-16 07:15 | Emergency (ER) | payer MEDICARE, SELFPAY ==
[2022-10-16 07:28] VITALS: BP 177/72; PULSE 61; RESP 15; O2SAT 99
--- NOTE | 2022-10-16 07:38 | CT_ITS ---
WS: [id number] CT HEAD TECHNIQUE: Noncontrast CT of the head obtained from the skullbase to the vertex. CLINICAL INFORMATION: ocular pain, GILMORE COMPARISON: None. DLP: 1129.[address] scans at [facility] use at least one of these dose optimization techniques: automated e xposure control; mA and/or kV adjustment per patient size (includes targeted exams where dose is matc hed to clinical indication); or iterative reconstruction. FINDINGS: No evidence of intracranial hemorrhage or mass effect. Ventricular system and basal cisterns are dang nt. Mild small vessel changes with mild parenchymal volume loss. Incidental arachnoid cyst or focal e ncephalomalacia in the LEFT parasagittal frontal lobe measuring 1.5 x 1.4 CM. Intracranial vascular c alcification. Small retention cysts or polyps RIGHT maxillary sinus. Mastoid air cells well aerated. IMPRESSION: 1. No evidence of intracranial hemorrhage or mass effect. 2. Mild small vessel changes. Mild parenchymal volume loss. 3. No acute intracranial findings.
--- NOTE | 2022-10-16 07:39 | ED_ITS ---
HPI - Headache General: Chief Complaint: Headache Stated Complaint: headache Time Seen by Provider: 10/16/22 07:17 Source: patient Mode of arrival: ambulatory Limitations: no limitations History of Present Illness: Patient is a very nice 77-year-old female who presents to ED today with a complaint of a headache. Patient states she first began noticing headache approximately 4 days ago. She states that started gradually and has seemed to wax and wane over the past 4 days. Patient states that her headache is a migraine although after speaking to patient further she states she has not had migraine headaches since she was a young child. Patient states pain seems to be located retro-orbitally and seems to switch back and forth between left and right. States she has a history of macular degeneration and just received a full dilated eye exam by Dr. Byrne a few weeks ago. Patient is not having any visual loss. She does have a chronic history of floaters and this has not changed recently. She does state when she closes her eyes she will see people and animals that seem to walk across her visual field. She states when her eyes are open she does not have these. Patient states pain seems to be worse with light and bending over. Patient does have a history of hypertension. She states blood pressure is normally controlled at home. She arrives to the ED today with a systolic blood pressure of 177. She has not taken her losartan this morning. Patient denies neck pain/neck stiffness. No fevers. No URI-like symptoms. No eye drainage, eye redness, painful movements. She denies any neurologic deficits or symptoms. She is ambulatory in the emergency department without difficulty. Denies dizziness/lightheadedness. elicited complaint: headache Onset (ago): day(s) Onset description: gradually Location: retro-orbital Exacerbating factors: light and other (bending over) Relieving factors: dark room Associated symptoms: Deny chest pain, confusion, fever(s), malaise, nausea, rash or vomiting Treatments prior to arrival: none Review of Systems Const: Denies: fever(s), chills, body aches, fatigue or malaise Eyes: Reports: change in vision, photophobia and floaters (chronically); Denies: blurry vision, blind spots, eye discomfort, eye discharge, eye redness, yellow eyes, dry eyes, increased production of tears or seeing flashes ENMT: Denies: throat pain, odynophagia, ear or mastoid pain, nasal discharge or nasal congestion Card: Denies: chest pain or palpitations Resp: Denies: dyspnea GI: Denies: nausea or vomiting : Denies: urinary incontinence Musc: Denies: neck pain or joint pain Skin/Breast: Denies: rash Neuro: Reports: headache(s); Denies: numbness in extremities, weakness in extremities, sensory changes, lack of coordination, difficulty walking, dizziness, vertigo, confusion, behavioral changes, Slurred speech present, difficulty communicating thoughts or seizure- like activity PFSH ED PFSH: Medical History Arthralgia, lumbar spine Chronic low back pain Encounter for long-term opiate analgesic use Long-term use of high-risk medication NSTEMI (non-ST elevated myocardial infarction) Obesity Pain management contract agreement ST elevation myocardial infarction (STEMI) Surgical History Abnormal coronary angiogram November 15, 2020 with RCA drug-eluting stent x2. See formal report History of suburethral sling procedure DR KRAMER 02/06/18 PORCINE GRAFT S/P cataract extraction S/P cholecystectomy S/P colectomy S/P right coronary artery (RCA) stent placement S/P total hysterectomy S/P tubal ligation Family History Mother Cancer LIVER CANCER Other Diabetes Hypertension Stroke Social History Smoking and tobacco status: former smoker Second hand smoke exposure: No Alcohol intake: never History of recent travel: No Female Reproductive History: Spontaneous abortions: No Physical Exam Const: COMMON NORMALS: no acute distress, average body habitus, patient oriented x3, no limitations, healthy appearing, alert and well nourished GENERAL APPEARANCE: cooperative ORIENTATION/CONSCIOUSNESS: Yes awake, Yes oriented to person, Yes oriented to place and Yes oriented to time HENMT: COMMON NORMALS: normocephalic and atraumatic HEAD & SCALP: normal to inspection, normocephalic and atraumatic FACE & SINUS: normal facial exam Eye: COMMON NORMALS: Equal, round and reactive pupils present, EOMs intact bilaterally and conjunctivae normal GENERAL EYE: appearance normal, both eyes and all related structures and normal light reflex VISUAL ACUITY: Yes acuity normal VISUAL CRABTREE: No peripheral vision loss and No central vision loss PERIORBITAL: periorbital findings normal EYELID: eyelids normal CONJUNCTIVA: Yes conjunctivae normal SCLERA: sclerae normal CORNEA: Yes corneas normal PUPIL: Yes Equal, round and reactive pupils present DIRECT OPHTHALMOSCOPY: Yes normal light reflex Neck/C-Spine: COMMON NORMALS: full ROM, no lymphadenopathy, supple and no meningeal signs GENERAL: Yes normal visual inspection Resp: COMMON NORMALS: normal respiratory effort and clear to auscultation bilaterally AUSCULTATION: clear to auscultation bilaterally Cardio: COMMON NORMALS: regular rate and regular rhythm RATE: regular rate RHYTHM: regular rhythm Neuro: DIPKA COMA SCALE: document GCS findings [place] coma scale eye opening: Spontaneous [place] coma scale verbal response: Orientated [place] coma scale motor response: Obey commands [place] coma scale total score: 15 COMMON NORMALS: patient oriented x3, CN's II-XII intact bilaterally, moves all extremities, no focal motor deficits, no sensory deficits noted and gait normal SENSORIUM/ORIENTATION: Yes alert, Yes oriented to person, Yes oriented to place and Yes oriented to time MENINGEAL SIGNS: Yes no meningeal signs SPEECH: speech normal GAIT: Yes Normal gait present MOTOR EXAM: 5/5 motor strength present throughout Skin: COMMON NORMALS: no rashes or lesions noted GENERAL SKIN EXAM: no rashes or lesions noted Course Vital Signs: Vital signs: Vital Signs Pulse Rate 61 10/16/22 07:28 Respiratory Rate 15 10/16/22 07:28 Blood Pressure 165/59 10/16/22 08:26 Pulse Oximetry 99 10/16/22 07:28 Oxygen Delivery Me thod 10/16/22 07:28 [facility] - Headache Medical Decision Making Patient is a 77-year-old female here for complaints of a retro-orbital headache over the past 3 to 4 days. She states pain does seem to jump around between her left and right orbital regions. Patient has a completely normal exam here. She has no other neurologic symptoms. She does arrive slightly hypertensive- this has improved slighly after giving her normal home morning BP med. Labs including ESR are unremarkable. Head CT is essentially normal. She did have an incidental arachnoid cyst unlikely to be responsible for her symptoms. Upon re- examination patient tells me she feels much better and is currently rating her pain at a 1/10 feels comfortable going home. Patient just received thorough dilated eye exam through Dr. Byrne a few weeks ago. I did recommend she go ahead and try to follow-up with their office as well as her PCP if symptoms persist. Patient is agreeable to current plan and voiced understanding. Strict return to ED precautions/red flag symptoms discussed/given. Lab Data 10/16/22 08:20 10/16/22 08:20 Laboratory Results WBC 8.7 10^3/uL (4.0-10.0) 10/16/22 08:20 RBC 4.63 10^6/uL (4.1-5.3) 10/16/22 08:20 Hgb 12.9 g/dL (11.5-15.3) 10/16/22 08:20 Hct 40.4 % (37.0-47.0) 10/16/22 08:20 MCV 87.3 fl (81-99) 10/16/22 08:20 MCH 27.9 pg (28.0-34.0) L 10/16/22 08:20 MCHC 31.9 g/dL (30.0-36.0) 10/16/22 08:20 RDW 13.5 % (12.1-15.1) 10/16/22 08:20 Plt Count 300 10^3/cmm (130-400) 10/16/22 08:20 MPV 9.2 fL (7.4-10.4) 10/16/22 08:20 Neut % (Auto) 67.5 % 10/16/22 08:20 Lymph % (Auto) 20.4 % 10/16/22 08:20 Davie % (Auto) 8.6 % 10/16/22 08:20 Eos % (Auto) 2.4 % 10/16/22 08:20 Baso % (Auto) 0.5 % 10/16/22 08:20 Neut # (Auto) 5.87 10^3/uL (1.8-7.7) 10/16/22 08:20 Lymph # (Auto) 1.8 10^3/uL (0.8-4.8) 10/16/22 08:20 Davie # (Auto) 0.8 10^3/uL (0.2-0.9) 10/16/22 08:20 Eos # (Auto) 0.2 10^3/uL (0.0-0.8) 10/16/22 08:20 Baso # (Auto) 0.0 10^3/uL (0.0-0.1) 10/16/22 08:20 Nucleated RBC % (auto) 0 % 10/16/22 08:20 Nucleated RBCs # 0.0 /100WBC 10/16/22 08:20 ESR 16 mm/hr (0-15) H 10/16/22 08:20 Sodium 135 mmol/L (136-145) L 10/16/22 08:20 Potassium 4.2 mmol/L (3.5-5.1) 10/16/22 08:20 Chloride 100 mmol/L (98-107) 10/16/22 08:20 Carbon Dioxide 27 mmol/L (22-29) 10/16/22 08:20 Anion Gap 12.2 (5-19) 10/16/22 08:20 BUN 19 mg/dL (8-23) 10/16/22 08:20 Creatinine 0.7 mg/dL (0.5-0.9) 10/16/22 08:20 GFR Calculation Not Reportable 10/16/22 08:20 Glucose 119 mg/dL (65-115) H 10/16/22 08:20 Calculated Osmolality 283 mOsm/kg (285-295) L 10/16/22 08:20 Calcium 8.8 mg/dL (8.5-10.5) 10/16/22 08:20 Total Bilirubin 0.7 mg/dL (0.15-1.2) 10/16/22 08:20 AST 17 U/L (0-32) 10/16/22 08:20 ALT 14 U/L (0-33) 10/16/22 08:20 Alkaline Phosphatase 73 U/L (35-105) 10/16/22 08:20 Total Protein 6.5 g/dL (6.6-8.7) L 10/16/22 08:20 Albumin 3.8 g/dL (3.5-5.2) 10/16/22 08:20 Globulin 2.7 g/dL (1.3-4.6) 10/16/22 08:20 Discharge Plan Discharge Patient Disposition: Home Clinical Impression: Headache Qualifiers: Headache type: unspecified Headache chronicity pattern: acute headache Intractability: not intractable Qualified Code(s): R51.9 - Headache, unspecified Condition: Stable Prescriptions: No Action PreserVision AREDS [phone] [id number] capsule 1 cap PO BID@07,23 metformin 500 mg tablet 500 mg PO BID aspirin 81 mg tablet,delayed release (DR/EC) 81 mg PO DAILY Qty: 90 3RF losartan 25 mg tablet 25 mg PO DAILY Qty: 90 3RF biotin 1,000 mcg tablet,chewable 1,000 mcg PO DAILY@07 potassium chloride 10 mEq tablet extended release 10 meq PO DAILY@07 duloxetine [Cymbalta] 30 mg capsule,delayed release(DR/EC) 30 mg PO DAILY@2300 Adults Multivitamin 18 mg iron-400 mcg-25 mcg tablet 1 tab PO DAILY@07 simvastatin 10 mg tablet 10 mg PO DAILY famotidine 20 mg tablet 20 mg PO BID ferrous sulfate 325 mg (65 mg iron) tablet 325 mg PO DAILY hydrocodone-acetaminophen 5-325 mg tablet 1 tab PO TID PRN (Reason: pain) 30 Days Qty: 90 0RF Rx Instructions: may fill 30 days after previous refill. clopidogrel 75 mg tablet 75 mg PO DAILY Qty: 90 3RF metoprolol tartrate 25 mg tablet 25 mg PO BID@0900,2100 Qty: 180 3RF (DME) glucometer testing kit See Rx Instructions .Route .MEDSUPPLY Qty: 1 0RF Rx Instructions: glucometer testing kit strips#100 lancets#100 check BS TID with meals nitroglycerin 0.4 mg Tablet, Sublingual 0.4 mg sublingual Q5M PRN (Reason: Chest Pain) Qty: 30 1RF Discharge Orders: Discharge ED (Routine); Ordered 10/16/22 Ordered By: Ginny Heaton Referrals: Ofelia Rodriguez MD [Primary Care Provider] - Activity Restrictions/Additional Instructions: As we spoke about you need to return to the emergency department for worsening or severe headache, visual loss, trouble speaking, trouble ambulating/walking, facial drooping, numbness/tingling/weakness to your face or arms, neck p ain/stiffness, fevers, significant eye pain, or any other concerns you may have. I would like you to follow-up with Dr. Byrne and/or your primary care provider. It was a pleasure taking care of you today. I hope you begin to feel better soon. Coding Level of Care Code ED Miner Operator for Jennig Fwd Exam Comprehensive
[2022-10-16] MEDS: ketorolac 60 mg/2 mL INJ 15 MG IVP (07:46)
[2022-10-16] MEDS: dexamethasone 10 mg/mL INJ 4 MG IV (07:47)
[2022-10-16] MEDS: diphenhydrAMINE 50 mg/mL SDV 1mL 25 MG IVP (07:48)
[2022-10-16] MEDS: losartan 50 mg Tablet 25 MG PO (08:18)
[2022-10-16 08:26] VITALS: BP 165/59
[2022-10-16 08:34] LABS: Basophils % 0.5 %; Eosinophils # 0.2 10^3/uL (0.0-0.8); Eosinophils % 2.4 %; Hematocrit 40.4 % (37.0-47.0); Hemoglobin 12.9 g/dL (11.5-15.3); Lymphocytes # 1.8 10^3/uL (0.8-4.8); Lymphocytes % 20.4 %; Mean Corpuscular HGB Conc 31.9 g/dL (30.0-36.0); Mean Corpuscular Hemoglobin 27.9 pg (28.0-34.0); Mean Corpuscular Volume 87.3 fl (81-99); Mean Platelet Volume 9.2 fL (7.4-10.4); Monocytes # 0.8 10^3/uL (0.2-0.9); Monocytes % 8.6 %; Neutrophils # 5.87 10^3/uL (1.8-7.7); Neutrophils % 67.5 %; Nucleated Red Blood Cells % 0 %; Platelet Count 300 10^3/cmm (130-400); Red Blood Count 4.63 10^6/uL (4.1-5.3); Red Cell Distribution Width 13.5 % (12.1-15.1); White Blood Count 8.7 10^3/uL (4.0-10.0)
[2022-10-16 08:51] LABS: Alanine Aminotransferase 14 U/L (0-33); Albumin Level 3.8 g/dL (3.5-5.2); Alkaline Phosphatase 73 U/L (35-105); Anion Gap 12.2 (5-19); Blood Urea Nitrogen 19 mg/dL (8-23); Calcium 8.8 mg/dL (8.5-10.5); Carbon Dioxide 27 mmol/L (22-29); Chloride 100 mmol/L (98-107); Globulin 2.7 g/dL (1.3-4.6); Glucose 119 mg/dL (65-115); Osmolality Calculated 283 mOsm/kg (285-295); Potassium 4.2 mmol/L (3.5-5.1); Sodium 135 mmol/L (136-145); Total Bilirubin 0.7 mg/dL (0.15-1.2); Total Protein 6.5 g/dL (6.6-8.7)
[2022-10-16 08:58] LABS: Aspartate Amino Transferase 17 U/L (0-32)
[2022-10-16 09:05] LABS: Erythrocyte Sedimentation Rate 16 mm/hr (0-15)
== END 2022-10-16 09:38 | disposition home or self-care (01) ==
PROVIDERS: Emergency Provider Physician Assistant; PCP Family Medicine
DX: R51.9 Headache, unspecified (principal); Z79.82 Long term (current) use of aspirin; Z79.84 Long term (current) use of oral hypoglycemic drugs; Z79.02 Long term (current) use of antithrombotics/antiplatelets; Z87.891 Personal history of nicotine dependence; I25.2 Old myocardial infarction
CPT/HCPCS: 70450; 80053; 85025; 85651; 96374; 96375; 99285; J1100; J1200; J1885

== ENCOUNTER 2022-11-27 09:46 | Outpatient (CLI) | payer OTHER, SELFPAY ==
--- NOTE | 2022-11-27 10:02 | MM_ITS ---
WS: [id number] BILATERAL SCREENING DIGITAL TOMOSYNTHESIS MAMMOGRAM WITH CAD HISTORY: SCREENING COMPARISON: 11/16/2021, 09/15/2020 Bilateral CC and MLO views with tomosynthesis and synthetic mammography submitted. Computer aided det ection analyzed. Breast composition: There are scattered areas of fibroglandular density. No suspicious masses, microc alcifications or architectural distortion. Mild soft tissue prominence posterior to the RIGHT nipple similar to prior study from 2019. MM/[place] [id number] IMPRESSION: BI-RADS: 2-Benign FOLLOW UP: 1 Year Follow-up
== END 2022-11-27 09:47 | disposition home or self-care (01) ==
PROVIDERS: PCP Family Medicine; Visit Provider Family Medicine
DX: Z12.31 Encounter for screening mammogram for malignant neoplasm of breast (principal)
CPT/HCPCS: 77063; 77067

== ENCOUNTER 2023-04-19 16:05 | Emergency (ER) | payer MEDICARE, SELFPAY ==
[2023-04-19 16:34] VITALS: BP 129/57; PULSE 56; RESP 16; TEMP 36.7; O2SAT 96
--- NOTE | 2023-04-19 16:54 | CTR_ITS ---
PROCEDURE INFORMATION: Exam: CT Head Without Contrast Exam date and time: 04/19/2023 5:15 PM Age: 77 years old Clinical indication: Altered mental status/memory loss; Additional info: AMS TECHNIQUE: Imaging protocol: Computed tomography of the head without contrast. Radiation optimization: All CT scans at this facility use at least one of these dose optimization techniques: automated exposure control; mA and/or kV adjustment per patient size (includes targeted exams where dose is matched to clinical indication); or iterative reconstruction. REPORTING DATA: Count of CT and Cardiac NM exams in prior 12 months: This patient has received [address] and 0 known cardiac nuclear medicine studies in the 12 months prior to the current study. COMPARISON: CT head wo con* [id number] 10/16/2022 8:33 AM RADIATION DOSE METRICS: Total DLP (mGy-cm): 1079.78 FINDINGS: Brain: Atrophic or involutional change for age. Mild periventricular deep white matter chronic small-vessel disease change. Findings suggestive of either incidental arachnoid cyst or focal encephalomalacia in the parasagittal left frontal lobe is unchanged previous exam. No findings interval ischemic infarct. No intracranial hemorrhage or hematoma. No mass effect or shift of midline structures. Cerebral ventricles: Mild ventricular prominence with atrophic change without significant hydrocephalus. Paranasal sinuses: Small retention cyst or polyp right maxillary sinus unchanged Mastoid air cells: Visualized mastoid air cells are well aerated. Bones/joints: No acute findings. Soft tissues: Unremarkable. Other findings: No significant change with previous exam. CT/CT head wo con* [id number] IMPRESSION: Stable appearance with prior exam without acute findings.
--- NOTE | 2023-04-19 16:54 | ECG_ITS ---
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 Measurements Intervals [place] Rate: 54 P: 68 LA: 204 QRS: 56 QRSD: 135 T: 72 QT: 452 QTc: 428 Interpretive Statements SINUS BRADYCARDIA POSSIBLE LEFT ATRIAL ENLARGEMENT [-0.1mV P-WAVE IN V1/V2] INTRAVENTRICULAR CONDUCTION DELAY [130+ ms QRS DURATION] POSSIBLE ANTERIOR MYOCARDIAL INFARCTION , PROBABLY OLD [30 ms Q WAVE IN V3/V4, OR R < 0.2 mV IN V4] INFERIOR MYOCARDIAL INFARCTION , PROBABLY OLD [40+ ms Q WAVE AND/OR ST/T ABNORMALITY IN II/aVF] Compared to ECG 11/19/2020 16:40:18 Intraventricular conduction delay now present Sinus rhythm no longer present Myocardial infarct finding still present Electronically Signed On 04-19-2023 23:38:07 CDT by Boogie Carbone M.D. [id number]
--- NOTE | 2023-04-19 16:54 | XRR_ITS ---
PROCEDURE INFORMATION: Exam: XR Chest Exam date and time: 04/19/2023 5:03 PM Age: 77 years old Clinical indication: Other: AMS; Prior surgery; Surgery date: 6+ months; Surgery type: Stents TECHNIQUE: Imaging protocol: Radiologic exam of the chest. Views: 1 view. COMPARISON: CT chest w con* [id number] 08/23/2021 9:27 AM FINDINGS: Lungs: No focal infiltrate or consolidation. Pleural spaces: No pleural effusion. No pneumothorax. Heart/Mediastinum: Cardiac silhouette is borderline prominent. Vasculature: Mild arteriosclerosis of the thoracic aorta. Bones/joints: Spondylotic change thoracic spine. XR/XR chest 1V portable [id number] IMPRESSION: Borderline prominent cardiac size and without acute findings.
[2023-04-19 17:39] LABS: Basophils % 0.4 %; Eosinophils # 0.2 10^3/uL (0.0-0.8); Eosinophils % 2.3 %; Hematocrit 41.6 % (37.0-47.0); Hemoglobin 13.3 g/dL (11.5-15.3); Lymphocytes # 1.8 10^3/uL (0.8-4.8); Lymphocytes % 23.8 %; Mean Corpuscular Hemoglobin 27.8 pg (28.0-34.0); Mean Corpuscular Volume 86.8 fl (81-99); Mean Platelet Volume 9.5 fL (7.4-10.4); Monocytes # 0.6 10^3/uL (0.2-0.9); Monocytes % 7.5 %; Neutrophils # 4.92 10^3/uL (1.8-7.7); Neutrophils % 65.6 %; Nucleated Red Blood Cells % 0 %; Platelet Count 323 10^3/cmm (130-400); Red Blood Count 4.79 10^6/uL (4.1-5.3); Red Cell Distribution Width 13.8 % (12.1-15.1); White Blood Count 7.5 10^3/uL (4.0-10.0)
[2023-04-19 17:45] LABS: INR 1.07 (0.8-1.2)
[2023-04-19 18:03] LABS: Alanine Aminotransferase 14 U/L (0-33); Albumin Level 3.9 g/dL (3.5-5.2); Alkaline Phosphatase 68 U/L (35-105); Anion Gap 12.9 (5-19); Aspartate Amino Transferase 17 U/L (0-32); Blood Urea Nitrogen 15 mg/dL (8-23); C Reactive Protein 3.5 mg/L (0.0-4.9); Calcium 8.9 mg/dL (8.5-10.5); Carbon Dioxide 26 mmol/L (22-29); Chloride 104 mmol/L (98-107); Creatinine Clr Calc Pharmacy 58.1084; Globulin 2.4 g/dL (1.3-4.6); Glucose 100 mg/dL (65-115); Magnesium 2.2 mg/dL (1.7-2.3); Osmolality Calculated 287 mOsm/kg (285-295); Potassium 4.9 mmol/L (3.5-5.1); Sodium 138 mmol/L (136-145); Thyroid Stimulating Hormone 1.73 uIU/mL (0.27-4.20); Total Bilirubin 0.8 mg/dL (0.15-1.2); Total Protein 6.3 g/dL (6.6-8.7)
[2023-04-19 18:07] VITALS: BP 115/65; RESP 16; O2SAT 98
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
[2023-04-19 20:09] LABS: Add Urine Microscopic? YES; Bilirubin Urine Neg (Negative); Blood Urine Neg (Negative); Glucose Urine UA Norm (Normal); Ketones Urine Negative (Negative); Leukocyte Esterase Urine Trace (Negative); Nitrate Urine Negative (Negative); Protein Urine Neg (Negative); Urine Appearance Clear (CLEAR); Urine Color Yellow (Yellow); Urobilinogen Urine Norm (Negative); pH Urine 7 (5-7)
[2023-04-19 20:10] LABS: RBC Urine 0-4 /hpf (0-2)
[2023-04-19 20:12] LABS: Add Urine Culture? Yes; Bacteria Urine 1+ /hpf; Squamous Epithelial Cell Urine 0-4 /hpf (0-5); WBC Urine 0-4 /hpf (0-5)
[2023-04-19] MEDS: ciprofloxacin 500 mg Tablet PO (20:23)
== END 2023-04-19 20:39 | disposition home or self-care (01) ==
PROVIDERS: Emergency Provider Emergency Medicine; PCP Family Medicine
DX: N30.00 Acute cystitis without hematuria (principal); R51.9 Headache, unspecified; I25.2 Old myocardial infarction; Z79.899 Other long term (current) drug therapy; Z79.84 Long term (current) use of oral hypoglycemic drugs; Z87.891 Personal history of nicotine dependence
CPT/HCPCS: 70450; 71045; 80053; 81001; 83735; 84443; 85025; 85610; 86140; 93005; 99285

== ENCOUNTER 2023-09-30 18:51 | Emergency (ER) | payer MEDICARE, SELFPAY ==
[2023-09-30 18:57] VITALS: BP 131/66; PULSE 75; RESP 14; TEMP 36.9; O2SAT 94; BMI 27.4
--- NOTE | 2023-09-30 19:20 | XRR_ITS ---
PROCEDURE INFORMATION: Exam: XR Chest Exam date and time: 09/30/2023 7:42 PM Age: 78 years old Clinical indication: Cough and other: Weakness; Patient HX: Dizziness; AMS; Cough; Fever TECHNIQUE: Imaging protocol: Radiologic exam of the chest. Views: 1 view. COMPARISON: CR XR chest 1V portable [id number] 04/19/2023 5:03 PM FINDINGS: Lungs: No focal consolidation or evidence of airspace disease. Pleural spaces: No evidence of pneumothorax or pleural effusion Heart/Mediastinum: Cardiomediastinal silhouette is within normal limits. Bones/joints: No evidence of acute osseous abnormality. XR/XR chest 1V portable [id number] IMPRESSION: 1. No acute cardiopulmonary abnormality.
--- NOTE | 2023-09-30 19:20 | CTR_ITS ---
PROCEDURE INFORMATION: Exam: CT Head Without Contrast Exam date and time: 09/30/2023 7:47 PM Age: 78 years old Clinical indication: Injury or trauma; Blunt trauma (contusions or hematomas); Patient HX: Multiple falls today due to dizziness. Does not remember if she has struck her head during any of the falls. Does not endorse any head pain currently. ; Additional info: Dizzy, fall, weakness TECHNIQUE: Imaging protocol: Computed tomography of the head without contrast. Radiation optimization: All CT scans at this facility use at least one of these dose optimization techniques: automated exposure control; mA and/or kV adjustment per patient size (includes targeted exams where dose is matched to clinical indication); or iterative reconstruction. COMPARISON: CT head wo con* [id number] 04/19/2023 5:15 PM RADIATION DOSE METRICS: Total DLP (mGy-cm): 2191.58 FINDINGS: Brain: No evidence of intra-axial or extra-axial hemorrhage. No mass effect or midline shift. Focal encephalomalacia of the superior frontal gyri bilaterally. Elmore-white differentiation is otherwise maintained. Basilar cisterns are patent. Cerebral ventricles: No hydrocephalus. Paranasal sinuses: The visualized paranasal sinuses are well aerated. Mastoid air cells: The visualized mastoids and middle ears are clear. Bones/joints: The visualized calvarium and bony orbits are intact. Soft tissues: No gross soft tissue abnormality. CT/CT head wo con* [id number] IMPRESSION: 1. No acute intracranial abnormality.
--- NOTE | 2023-09-30 19:40 | ECG_ITS ---
[facility] Test Date: 2023-09-30 Pat Name: Bernice Diez Department: Room: Gender: Female Azure Developer: : 1945 Requested By: Hank Galan Order Number: [id number] Ryan MD: Boogie Carbone M.D. Measurements Intervals [place] Rate: 71 P: 68 ID: [id number] QRS: 66 QRSD: 104 T: 66 QT: 411 QTc: 447 Interpretive Statements SINUS RHYTHM INDETERMINATE AXIS PATTERN CONSISTENT WITH PULMONARY DISEASE INCOMPLETE RIGHT BUNDLE BRANCH BLOCK [90+ ms QRS DURATION, TERMINAL R IN V1/V2, 40+ ms S IN I/aVL/V4/V5/V6] Compared to ECG 04/19/2023 17:10:02 Indeterminate axis now present Incomplete right bundle-branch block now present Sinus bradycardia no longer present Intraventricular conduction delay no longer present Myocardial infarct finding no longer present Electronically Signed On 10-01-2023 10:51:19 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 [id number]
[2023-09-30 20:17] LABS: Basophils # 0.1 10^3/uL (0.0-0.1); Basophils % 0.7 %; Eosinophils # 0.2 10^3/uL (0.0-0.8); Hematocrit 39.6 % (36-47); Lymphocytes # 1.3 10^3/uL (0.8-4.8); Lymphocytes % 17.4 %; Mean Corpuscular HGB Conc 32.1 g/dL (30-55); Mean Corpuscular Hemoglobin 27.5 pg (27-33); Mean Corpuscular Volume 85.7 fl (85-98); Mean Platelet Volume 8.9 fL (7.4-10.4); Monocytes % 13.7 %; Neutrophils # 4.83 10^3/uL (1.8-7.7); Neutrophils % 65.5 %; Nucleated Red Blood Cells % 0 %; Platelet Count 269 10^3/cmm (157-399); Red Blood Count 4.62 10^6/uL (3.85-5.65); Red Cell Distribution Width 14.4 % (12.1-15.1); White Blood Count 7.37 10^3/uL (3.29-11.43)
[2023-09-30 20:26] LABS: Glucose Urine UA Norm (Normal); Protein Urine Neg (Negative); Urine Appearance Cloudy (CLEAR); Urine Color Yellow (Yellow); pH Urine 5 (5-7)
[2023-09-30 20:27] LABS: Add Urine Microscopic? YES; Amorphous Sediment Urine 1+ /hpf; Bacteria Urine 15 /hpf; Bilirubin Urine Neg (Negative); Blood Urine 2+ (Negative); Ketones Urine 1+ (Negative); Leukocyte Esterase Urine Trace (Negative); Mucus Urine 1+ /hpf; Nitrate Urine Negative (Negative); Urobilinogen Urine 1 mg/dL (Negative)
[2023-09-30 20:31] LABS: Squamous Epithelial Cell Urine 15-25 /hpf (0-5)
[2023-09-30 20:38] LABS: INR 1.06 (0.8-1.2); Partial Thromboplastin Time 33.1 SECONDS (23.9-36.7)
[2023-09-30 20:41] VITALS: BP 119/51; PULSE 71; O2SAT 93
[2023-09-30 20:41] LABS: Lactic Sepsis W/Reflex 1.1 mmol/L (0.5-2.2)
[2023-09-30 20:47] LABS: Alanine Aminotransferase 17 U/L (0-33); Albumin Level 3.7 g/dL (3.5-5.2); Alkaline Phosphatase 71 U/L (35-105); Anion Gap 13.6 (5-19); Aspartate Amino Transferase 23 U/L (0-32); Blood Urea Nitrogen 17 mg/dL (8-23); Calcium 9.7 mg/dL (8.5-10.5); Carbon Dioxide 25 mmol/L (22-29); Chloride 100 mmol/L (98-107); Creatine Phosphokinase 37 U/L (26-192); Creatinine Clr Calc Pharmacy 58.4139; Globulin 3.3 g/dL (1.3-4.6); Glucose 90 mg/dL (65-115); Magnesium 2.2 mg/dL (1.7-2.3); Osmolality Calculated 279 mOsm/kg (285-295); Phosphorus 3.4 mg/dL (2.5-4.5); Potassium 4.6 mmol/L (3.5-5.1); Sodium 134 mmol/L (136-145); Total Bilirubin 0.8 mg/dL (0.15-1.2)
[2023-09-30 20:48] LABS: Alcohol Level < 10 mg/dL (0-10)
--- NOTE | 2023-09-30 21:13 | ED_ITS ---
HPI - Fall 2 General: Chief Complaint: Fall Stated Complaint: fell, Passed out? dizziness before fall Time Seen by Provider: 09/30/23 19:07 History of Present Illness: 78-year-old female who fell at home nicko ier in the day. She notes that she felt faint prior to falling. No visual changes or language problems. No fever. She was down for a few minutes, was able to call out to her family members to help her up. Short time after that, she decided that she needed to go to [facility]. She fell again at [facility] and was unable to get up on her own there as well. Again, no focal weakness, language problems, etc. She denies fever. She denies chest discomfort. She denies headache. Associated symptoms-after fall: Reports difficulty walking; Denies abdominal pain, chest pain, confusion or headache(s) Review of Systems 2 Const: Denies: fever(s), chills or body aches Eyes: Denies: change in vision Card: Denies: chest pain or palpitations Resp: Denies: dyspnea, productive cough, non-productive cough or wheezing GI: Denies: abdominal pain, nausea, vomiting, diarrhea or hematochezia : Denies: difficulty voiding Skin/Breast: Denies: rash Neuro: Reports: weakness in extremities, lack of coordination, difficulty walking and dizziness; Denies: headache(s) or confusion PFSH ED 2 PFSH: Medical History Chronic low back pain Pain management contract agreement NSTEMI (non-ST elevated myocardial infarction) Obesity ST elevation myocardial infarction (STEMI) Long-term use of high-risk medication Arthralgia, lumbar spine Encounter for long-term opiate analgesic use Surgical History Hx of colonoscopy 2017 at [facility] History of esophagogastroduodenoscopy (EGD) at [facility] S/P right coronary artery (RCA) stent placement Abnormal coronary angiogram November 15, 2020 with RCA drug-eluting stent x2. See formal report S/P total hysterectomy S/P cholecystectomy S/P cataract extraction S/P colectomy S/P tubal ligation History of suburethral sling procedure DR KRAMER 02/06/18 PORCINE GRAFT Family History Mother Cancer LIVER CANCER Other Diabetes Hypertension Stroke Social History Smoking and tobacco/nicotine status: former use of tobacco/nicotine Second hand smoke exposure: No Alcohol intake: never Substance/Drug Use: never Female Reproductive History: Spontaneous abortions: No Physical Exam 2 Const: COMMON NORMALS: no acute distress GENERAL APPEARANCE: cooperative; not ill appearing and not frail appearing HENMT: COMMON NORMALS: normocephalic, atraumatic and Normal external nose present HEAD & SCALP: normocephalic and atraumatic FACE & SINUS: normal facial exam and face symmetric NOSE: Normal external nose present Eye: COMMON NORMALS: Equal, round and reactive pupils present and EOMs intact bilaterally PUPIL: Yes Equal, round and reactive pupils present Neck/C-Spine: GENERAL: Yes trachea midline Chest: CHEST: Yes Symmetrical chest wall rise Resp: COMMON NORMALS: normal respiratory effort, No retractions, No use of accessory muscles and clear to auscultation bilaterally AUSCULTATION: clear to auscultation bilaterally Cardio: COMMON NORMALS: regular rate and regular rhythm RATE: regular rate RHYTHM: regular rhythm GI: COMMON NORMALS: Normal to inspection, nondistended, normoactive bowel sounds present Extremity: COMMON NORMALS: no pedal edema Neuro: DIPAK COMA SCALE: document GCS findings Dipak coma scale eye opening: Spontaneous Wake coma scale verbal response: Orientated Dipak coma scale motor response: Obey commands Wake coma scale total score: 15 S ENSORY EXAM: Yes extremities (intact) Psych: COMMON NORMALS: speech normal SPEECH: Yes normal speech Skin: COMMON NORMALS: no rashes or lesions noted GENERAL SKIN EXAM: no rashes or lesions noted Course 2 Vital Signs: Vital signs: Vital Signs Temperature 98.5 F 09/30/23 18:57 Pulse Rate 71 09/30/23 21:27 Respiratory Rate 14 09/30/23 21:27 Blood Pressure 119/51 09/30/23 21:27 Pulse Oximetry 93 09/30/23 21:27 Oxygen Delivery Me thod Room Air 09/30/23 20:41 MDM - Fall Medical Decision Making Head CT and chest x-ray are negative. CBC is normal. BMP is not remarkable. Liver enzymes are normal. Urinalysis is contaminated but does not show overt infection. The patient has walked in the ER without problems or complaint. She wishes to go home. Clinically she appears stable. She will be allowed discharge. Lab Data 09/30/23 20:12 09/30/23 20:12 Radiology Impressions Chest X-Ray 09/30/23 19:20 IMPRESSION: 1. No acute cardiopulmonary abnormality. Head CT 09/30/23 19:20 IMPRESSION: 1. No acute intracranial abnormality. Laboratory Results WBC 7.37 10^3/uL (3.29-11.43) 09/30/23 20:12 RBC 4.62 10^6/uL (3.85-5.65) 09/30/23 20:12 Hgb 12.70 g/dL (11.27-16.99) 09/30/23 20:12 Hct 39.6 % (36-47) 09/30/23 20:12 MCV 85.7 fl (85-98) 09/30/23 20:12 MCH 27.5 pg (27-33) 09/30/23 20:12 MCHC 32.1 g/dL (30-55) 09/30/23 20:12 RDW 14.4 % (12.1-15.1) 09/30/23 20:12 Plt Count 269 10^3/cmm (157-399) 09/30/23 20:12 MPV 8.9 fL (7.4-10.4) 09/30/23 20:12 Neut % (Auto) 65.5 % 09/30/23 20:12 Lymph % (Auto) 17.4 % 09/30/23 20:12 [place] % (Auto) 13.7 % 09/30/23 20:12 Eos % (Auto) 2.0 % 09/30/23 20:12 Baso % (Auto) 0.7 % 09/30/23 20:12 Neut # (Auto) 4.83 10^3/uL (1.8-7.7) 09/30/23 20:12 Lymph # (Auto) 1.3 10^3/uL (0.8-4.8) 09/30/23 20:12 [place] # (Auto) 1.0 10^3/uL (0.2-0.9) H 09/30/23 20:12 Eos # (Auto) 0.2 10^3/uL (0.0-0.8) 09/30/23 20:12 Baso # (Auto) 0.1 10^3/uL (0.0-0.1) 09/30/23 20:12 Nucleated RBC % (auto) 0 % 09/30/23 20:12 Nucleated RBCs # 0.0 /100WBC 09/30/23 20:12 PT 14.10 SECONDS (12.1-14.9) 09/30/23 20:12 INR 1.06 (0.8-1.2) 09/30/23 20:12 APTT 33.1 SECONDS (23.9-36.7) 09/30/23 20:12 Sodium 134 mmol/L (136-145) L 09/30/23 20:12 Potassium 4.6 mmol/L (3.5-5.1) 09/30/23 20:12 Chloride 100 mmol/L (98-107) 09/30/23 20:12 Carbon Dioxide 25 mmol/L (22-29) 09/30/23 20:12 Anion Gap 13.6 (5-19) 09/30/23 20:12 BUN 17 mg/dL (8-23) 09/30/23 20:12 Creatinine 0.7 mg/dL (0.5-0.9) 09/30/23 20:12 GFR Calculation Not Reportable 09/30/23 20:12 Glucose 90 mg/dL (65-115) 09/30/23 20:12 Calculated Osmolality 279 mOsm/kg (285-295) L 09/30/23 20:12 Lactic Acid 1.1 mmol/L (0.5-2.2) 09/30/23 20:12 Calcium 9.7 mg/dL (8.5-10.5) 09/30/23 20:12 Phosphorus 3.4 mg/dL (2.5-4.5) 09/30/23 20:12 Magnesium 2.2 mg/dL (1.7-2.3) 09/30/23 20:12 Total Bilirubin 0.8 mg/dL (0.15-1.2) 09/30/23 20:12 AST 23 U/L (0-32) 09/30/23 20:12 ALT 17 U/L (0-33) 09/30/23 20:12 Alkaline Phosphatase 71 U/L (35-105) 09/30/23 20:12 Creatine Kinase 37 U/L (26-192) 09/30/23 20:12 Total Protein 7.0 g/dL (6.6-8.7) 09/30/23 20:12 Albumin 3.7 g/dL (3.5-5.2) 09/30/23 20:12 Globulin 3.3 g/dL (1.3-4.6) 09/30/23 20:12 Urine Color Yellow (Yellow) 09/30/23 20:03 Urine Appearance Cloudy (CLEAR) A 09/30/23 20:03 Urine pH 5 (5-7) 09/30/23 20:03 Ur Specific [place] 1.020 (1.005-1.030) 09/30/23 20:03 Urine Protein Neg (Negative) 09/30/23 20:03 Urine Glucose (UA) Norm (Normal) 09/30/23 20:03 Urine Ketones 1+ (Negative) H 09/30/23 20:03 Urine Blood 2+ (Negative) H 09/30/23 20:03 Urine Nitrate Negative (Negative) 09/30/23 20: Urine Bilirubin Neg (Negative) 09/30/23 20:03 Urine Urobilinogen 1 mg/dL (Negative) H 09/30/23 20:03 Ur Leukocyte Esterase Trace (Negative) H 09/30/23 20:03 Urine RBC 5-10 /hpf (0-2) H 09/30/23 20:03 Urine WBC 5-10 /hpf (0-5) H 09/30/23 20:03 Ur Squamous Epith Cells 15-25 /hpf (0-5) H 09/30/23 20:03 Amorphous Sediment 1+ /hpf 09/30/23 20:03 Urine Bacteria 15 /hpf (NONE) 09/30/23 20: Urine Mucus 1+ /hpf 09/30/23 20:03 Ethyl Alcohol < 10 mg/dL (0-10) 09/30/23 20:12 All radiology interpretation(s) finalized by discharge Discharge Plan Discharge Patient Disposition: Home Clinical Impression: Episode of generalized weakness Condition: Stable Prescriptions: No Action PreserVision AREDS 14,320-226-200 rikh-sw-pbso capsule 1 cap PO BID@07,23 metformin 500 mg tablet 500 mg PO BID aspirin 81 mg tablet,delayed release (DR/EC) 81 mg PO DAILY Qty: 90 3RF losartan 25 mg tablet 25 mg PO DAILY Qty: 90 3RF biotin 1,000 mcg tablet,chewable 1,000 mcg PO DAILY@07 potassium chloride 10 mEq tablet extended release 10 meq PO DAILY@07 Adults Multivitamin 18 mg iron-400 mcg-25 mcg tablet 1 tab PO DAILY@07 duloxetine [Cymbalta] 30 mg capsule,delayed release(DR/EC) 60 mg PO DAILY@2300 simvastatin 10 mg tablet 10 mg PO DAILY famotidine 20 mg tablet 20 mg PO BID ferrous sulfate 325 mg (65 mg iron) tablet 325 mg PO DAILY hydrocodone-acetaminophen 5-325 mg tablet 1 tab PO TID PRN (Reason: pain) 30 Days Qty: 90 0RF Rx Instructions: may fill 30 days after previous refill. clopidogrel 75 mg tablet 75 mg PO DAILY Qty: 90 3RF metoprolol tartrate 25 mg tablet 25 mg PO BID@0900,2100 Qty: 180 3RF (DME) glucometer testing kit See Rx Instructions .Route .MEDSUPPLY Qty: 1 0RF Rx Instructions: glucometer testing kit strips#100 lancets#100 check BS TID with meals nitroglycerin 0.4 mg Tablet, Sublingual 0.4 mg sublingual Q5M PRN (Reason: Chest Pain) Qty: 30 1RF ciprofloxacin HCl 500 mg tablet 250 mg PO BID Qty: 20 0RF Discharge Orders: Discharge ED (Routine); Ordered 09/30/23 Ordered By: Hank Nolan Referrals: Ofelia Rodriguez MD [Primary Care Provider] - 1-3 days Patient Instructions: Weakness (ED), Opioid Safety, Pain Management Activity Restrictions/Additional Instructions: Return for repeated episodes of weakness or falls, dizziness, mental status changes, language problems or vision problems, other concerning symptoms. See your doctor this week. It is advisable not to drive until cleared by your doctor. Coding Level of Care Code ED Curb Machine Operator for Chalo Barksdale NIH stroke score NIHSS Level Of Consciousness - 1a: 0 Level Of Consciousness Questions - 1b: One Correct Level Of Consciousness Commands - 1c: Both Correct Best Gaze - 2: Normal Visual Miranda - 3: No Visual Loss Facial Palsy - 4: Normal Motor Arm Right - 5: No Drift Motor Arm Left - 5: No Drift Motor Leg Right - 6: No Drift Motor Leg Left - 6: No Drift Limb Ataxia - 7: Absent Sensory - 8: Normal Best Language - 9: No Aphasia Dysarthia - 10: Normal Extinction And Inattention - 11: 0 Score Total Score: 1
[2023-09-30 21:27] VITALS: BP 119/51; PULSE 71; RESP 14; O2SAT 93
== END 2023-09-30 21:28 | disposition home or self-care (01) ==
PROVIDERS: Emergency Provider Emergency Medicine; PCP Family Medicine
DX: R53.1 Weakness (principal); Z79.84 Long term (current) use of oral hypoglycemic drugs; Z79.82 Long term (current) use of aspirin; Z79.02 Long term (current) use of antithrombotics/antiplatelets; Z87.891 Personal history of nicotine dependence; I25.2 Old myocardial infarction
CPT/HCPCS: 70450; 71045; 80053; 80307; 81001; 82550; 83605; 83735; 84100; 85025; 85610; 85730; 93005; 99285

== ENCOUNTER → 2023-11-07 11:48 | Outpatient (BNVA) | payer MEDICARE, SELFPAY | PROVIDERS: PCP Family Medicine; Visit Provider Internal Medicine | DX: I25.119 Atherosclerotic heart disease of native coronary artery with unspecified angina pectoris (principal); E11.9 Type 2 diabetes mellitus without complications; Z79.84 Long term (current) use of oral hypoglycemic drugs; Z87.891 Personal history of nicotine dependence | CPT/HCPCS: 99214 ==

== ENCOUNTER 2023-11-09 11:22 | Outpatient (CLI) | payer MEDICARE, SELFPAY ==
--- NOTE | 2023-11-09 11:28 | USCV_ITS ---
Rg Bernice Age: 78 Gender: F : 1945 Exam Date: 11/09/2023 11:34 Ordering Phys: Sydnee Smith Technologist: SANDI Exam Location: [facility] [place] Indication: Dizziness and Giddiness Risk Factors: Previous Vascular Surgery: Right Brachial BP: / Left Brachial BP: / Right Left Velocity (cm/s) Spectral Plaque Velocity (cm/s) Spectral Plaque Syst/Diast Broadening Syst/Diast Broadening 76.80/ 13.30 Prox CCA 77.60 / 13.70 73.90/ 14.40 Mid CCA 88.50 / 19.20 84.80/ 17.40 Distal CCA 90.40 / 21.00 88.20/ 19.70 Prox ICA 127.60/ 20.90 88.20/ 19.70 Mid ICA 99.30 / 20.90 83.20/ 18.60 Distal ICA 86.20 / 20.90 86.40 ECA 125.50 Antegrade Vertebral 75.00/ 14.10 cm/s 61.00/ 16.50 cm/s Bi Subclavian Bi 115.1 245.1 0 0 FINDINGS Comparison: none available. No significant elevation of systolic or diastolic velocities. Waveforms are normal. Mild carotid plaque. CONCLUSIONS Bilateral ICA stenosis less than 50%. Mild carotid atherosclerosis. Dr. Fina Tay DO (Electronically Signed) Final Date: 09 November 2023 15:57 S
== END 2023-11-09 11:23 | disposition home or self-care (01) ==
LOC: RAD 11:22
PROVIDERS: PCP Family Medicine; Visit Provider Otolaryngology
DX: R42 Dizziness and giddiness (principal); I65.23 Occlusion and stenosis of bilateral carotid arteries
CPT/HCPCS: 93880

== ENCOUNTER 2023-11-30 15:10 | Outpatient (CLI) | payer MEDICARE, SELFPAY ==
--- NOTE | 2023-11-30 15:11 | MM_ITS ---
WS: [id number] BILATERAL 3D TOMOSYNTHESIS DIGITAL SCREENING MAMMOGRAPHY WITH CAD CLINICAL INFORMATION: SCREENING HISTORY: Screening mammogram. No current complaints. COMPARISON: 2022 TECHNIQUE: Bilateral CC and MLO views. FINDINGS: Scattered fibroglandular densities bilaterally. No suspicious focal mass, asymmetry, calcifications, or architectural distortion. No evidence of malignancy. Bilateral vascular calcifications. IMPRESSION: MM/[place] [id number] BI-RADS: 2-Benign FOLLOW UP: 1 Year Follow-up Recommend return to annual screening mammography.
== END 2023-11-30 15:11 | disposition home or self-care (01) ==
LOC: RAD 15:10
PROVIDERS: PCP Family Medicine; Visit Provider Family Medicine
DX: Z12.31 Encounter for screening mammogram for malignant neoplasm of breast (principal)
CPT/HCPCS: 77063; 77067

== ENCOUNTER → 2023-12-24 09:06 | Outpatient (BNVA) | payer MEDICARE, SELFPAY | PROVIDERS: PCP Family Medicine; Visit Provider Anesthesiology Pain Medicine | DX: G89.29 Other chronic pain; M47.816 Spondylosis without myelopathy or radiculopathy, lumbar region; M51.16 Intervertebral disc disorders with radiculopathy, lumbar region; Z79.891 Long term (current) use of opiate analgesic | CPT/HCPCS: 99213 ==

== ENCOUNTER 2024-04-15 19:52 | Emergency (ER) | payer MEDICARE, SELFPAY ==
[2024-04-15 20:15] VITALS: BP 122/63; PULSE 75; RESP 18; TEMP 36.7; O2SAT 96
--- NOTE | 2024-04-15 20:26 | XRR_ITS ---
PROCEDURE INFORMATION: Exam: XR Chest Exam date and time: 04/15/2024 8:30 PM Age: 78 years old Clinical indication: Other: Dizzy; Additional info: Dizziness TECHNIQUE: Imaging protocol: Radiologic exam of the chest. Views: 1 view. COMPARISON: CR XR chest 1V portable [id number] 09/30/2023 7:42 PM FINDINGS: Lungs: Unremarkable. No consolidation. Pleural spaces: Unremarkable. No pleural effusion. No pneumothorax. Heart/Mediastinum: Unremarkable. No cardiomegaly. Bones/joints: Unremarkable. XR/XR chest 1V portable [id number] IMPRESSION: No acute findings.
--- NOTE | 2024-04-15 20:26 | CTR_ITS ---
PROCEDURE INFORMATION: Exam: CT Head Without Contrast Exam date and time: 04/15/2024 9:23 PM Age: 78 years old Clinical indication: Dizziness TECHNIQUE: Imaging protocol: Computed tomography of the head without contrast. Radiation optimization: All CT scans at this facility use at least one of these dose optimization techniques: automated exposure control; mA and/or kV adjustment per patient size (includes targeted exams where dose is matched to clinical indication); or iterative reconstruction. COMPARISON: CT head wo con* [id number] 09/30/2023 7:47 PM RADIATION DOSE METRICS: Total DLP (mGy-cm): 1110.28 FINDINGS: Brain: Encephalomalacia within the bilateral superior frontal gyrus , [id number]. No hemorrhage. Unremarkable white matter. No mass effect. Cerebral ventricles: No ventriculomegaly. Paranasal sinuses: Visualized sinuses are unremarkable. No fluid levels. Mastoid air cells: Small mucous retention cysts within the right maxillary sinus. Bones: Unremarkable. No acute fracture. Soft tissues: Unremarkable. CT/CT head wo con* [id number] IMPRESSION: No acute intracranial abnormality.
--- NOTE | 2024-04-15 20:27 | ECG_ITS ---
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 Measurements Intervals [place] Rate: 69 P: 62 CA: 182 QRS: 253 QRSD: 107 T: 68 QT: 422 QTc: 452 Interpretive Statements SINUS RHYTHM POSSIBLE ANTERIOR MYOCARDIAL INFARCTION , OF INDETERMINATE AGE [30 ms Q WAVE IN V3/V4, OR R < 0.2 mV IN V4] Compared to ECG 09/30/2023 19:40:46 Myocardial infarct finding now present Indeterminate axis no longer present Incomplete right bundle-branch block no longer present Electronically Signed On 04-16-2024 10:32:04 CDT by Boogie Carbone M.D. [id number]
[2024-04-15] MEDS: meclizine 25 mg tablet 50 MG PO (20:50)
[2024-04-15] MEDS: sodium chloride 0.9% 1,000 ML 999 ML IV (20:50)
[2024-04-15 21:06] LABS: Basophils % 0.6 %; Eosinophils # 0.2 10^3/uL (0.0-0.8); Eosinophils % 2.2 %; Lymphocytes # 1.8 10^3/uL (0.8-4.8); Lymphocytes % 25.8 %; Mean Corpuscular HGB Conc 32.7 g/dL (30-55); Mean Corpuscular Hemoglobin 27.7 pg (27-33); Mean Corpuscular Volume 84.6 fl (85-98); Mean Platelet Volume 9.3 fL (7.4-10.4); Monocytes # 0.5 10^3/uL (0.2-0.9); Monocytes % 7.9 %; Neutrophils # 4.29 10^3/uL (1.8-7.7); Neutrophils % 62.9 %; Nucleated Red Blood Cells % 0 %; Platelet Count 342 10^3/cmm (157-399); Red Cell Distribution Width 14.2 % (12.1-15.1); White Blood Count 6.82 10^3/uL (3.29-11.43)
[2024-04-15 21:23] LABS: Alanine Aminotransferase 15 U/L (0-33); Albumin Level 4.1 g/dL (3.5-5.2); Alkaline Phosphatase 77 U/L (35-105); Anion Gap 15.5 (5-19); Aspartate Amino Transferase 19 U/L (0-32); Blood Urea Nitrogen 16 mg/dL (8-23); Calcium 9.2 mg/dL (8.5-10.5); Carbon Dioxide 26 mmol/L (22-29); Chloride 101 mmol/L (98-107); Creatinine Clr Calc Pharmacy 46.7311; Globulin 3.3 g/dL (1.3-4.6); Glucose 142 mg/dL (65-115); Osmolality Calculated 290 mOsm/kg (285-295); Potassium 4.5 mmol/L (3.5-5.1); Sodium 138 mmol/L (136-145); Total Protein 7.4 g/dL (6.6-8.7)
--- NOTE | 2024-04-15 21:25 | ED_ITS ---
HPI - Dizziness 2 General: Chief Complaint: Dizziness Stated Complaint: dizziness Time Seen by Provider: 04/15/24 20:26 Source: patient Mode of arrival: ambulatory Limitations: no limitations History of Present Illness: HPI Narrative: 78-year-old female states that she has h ad some intermittent dizziness since yesterday. States she has had this issue before states she when she went to the bathroom she had felt dizzy fell and did hit her head she has a mild headache patient states she is not dizzy right now she ambulated in the room with no problems had 1 episode of chest pain Sunday lasted for few minutes has had none since then. Associated symptoms: Reports chest pain; Denies chills, headache(s), nausea or vomiting Review of Systems 2 Const: Denies: fever(s), chills, body aches or change in appetite Eyes: Denies: blurry vision or eye discomfort ENMT: Denies: throat pain or dental pain Card: Reports: chest pain Resp: Denies: dyspnea GI: Denies: abdominal pain, nausea, vomiting or diarrhea Musc: Denies: neck pain or back pain Skin/Breast: Denies: rash Neuro: Reports: dizziness; Denies: headache(s) PFSH ED 2 PFSH: Medical History Chronic low back pain Pain management contract agreement NSTEMI (non-ST elevated myocardial infarction) Obesity ST elevation myocardial infarction (STEMI) Long-term use of high-risk medication Arthralgia, lumbar spine Encounter for long-term opiate analgesic use Surgical History Hx of colonoscopy 2016 at [facility] History of esophagogastroduodenoscopy (EGD) at [facility] S/P right coronary artery (RCA) stent placement Abnormal coronary angiogram November 15, 2020 with RCA drug-eluting stent x2. See formal report S/P total hysterectomy S/P cholecystectomy S/P cataract extraction S/P colectomy S/P tubal ligation History of suburethral sling procedure DR KRAMER 02/06/18 [place] [employer] Family History Mother Cancer LIVER CANCER Other Diabetes Hypertension Stroke Social History Smoking and tobacco/nicotine status: former use of tobacco/nicotine Second hand smoke exposure: No Alcohol intake: never Substance/Drug Use: never Female Reproductive History: Spontaneous abortions: No Physical Exam 2 Const: COMMON NORMALS: no acute distress, patient oriented x3 and healthy appearing HENMT: COMMON NORMALS: normocephalic and atraumatic HEAD & SCALP: n ormocephalic and atraumatic Eye: COMMON NORMALS: Equal, round and reactive pupils present and EOMs intact bilaterally PUPIL: Yes Equal, round and reactive pupils present OTHER: No nystagmus noted Neck/C-Spine: COMMON NORMALS: full ROM and supple Chest: COMMONS NORMALS: normal inspection of the chest Resp: COMMON NORMALS: normal respiratory effort, No retractions, No use of accessory muscles and clear to auscultation bilaterally AUSCULTATION: clear to auscultation bilaterally Cardio: COMMON NORMALS: regular rate, regular rhythm and No murmurs present (Cardio) RATE: regular rate RHYTHM: regular rhythm Extremity: COMMON NORMALS: normal to inspection and full ROM Neuro: COMMON NORMALS: patient oriented x3, moves all extremities and no focal motor deficits CRANIAL NERVES: Yes CN normal except as noted SPEECH: s peech normal GAIT: Yes Normal gait present MOTOR EXAM: 5/5 motor strength present throughout Psych: COMMON NORMALS: mental status grossly normal, Normal thought process present and cooperative THOUGHT PROCESS: Normal thought process present Skin: COMMON NORMALS: no rashes or lesions noted and no wounds GENERAL SKIN EXAM: no rashes or lesions noted Course 2 Vital Signs: Vital signs: Vital Signs Temperature 98.1 F 04/15/24 20:15 Pulse Rate 75 04/15/24 20:15 Respiratory Rate 18 04/15/24 20:15 Blood Pressure 122/63 04/15/24 20:15 Pulse Oximetry 96 04/15/24 20:15 MDM - Dizziness Medical Decision Making Patient presents with dizziness that is since resolved she has been well- appearing here she has been able ambulate with no difficulty she has no signs of a posterior stroke she had any chest pain since Sunday night was short lived EKG here is normal no signs of ACS she stable for discharge follow-up with PCP return if worsening she understands agrees to plan Medical Records I reviewed the patient's medical records. Lab Data I reviewed the patient's lab results. 04/15/24 21:01 04/15/24 21:01 Radiology Impressions Chest X-Ray 04/15/24 20: IMPRESSION: No acute findings. Head CT 04/15/24 20: IMPRESSION: No acute intracranial abnormality. Laboratory Results WBC 6.82 10^3/uL (3.29-11.43) 04/15/24 21: RBC 5.20 10^6/uL (3.85-5.65) 04/15/24 21:01 Hgb 14.40 g/dL (11.27-16.99) 04/15/24 21:01 Hct 44.0 % (36-47) 04/15/24 21: MCV 84.6 fl (85-98) L 04/15/24 21: MCH 27.7 pg (27-33) 04/15/24 21: MCHC 32.7 g/dL (30-55) 04/15/24 21: RDW 14.2 % (12.1-15.1) 04/15/24 21: Plt Count 342 10^3/cmm (157-399) 04/15/24 21:01 MPV 9.3 fL (7.4-10.4) 04/15/24 21: Neut % (Auto) 62.9 % 04/15/24 21:01 Lymph % (Auto) 25.8 % 04/15/24 21:01 [place] % (Auto) 7.9 % 04/15/24 21: Eos % (Auto) 2.2 % 04/15/24 21: Baso % (Auto) 0.6 % 04/15/24 21:01 Neut # (Auto) 4.29 10^3/uL (1.8-7.7) 04/15/24 21:01 Lymph # (Auto) 1.8 10^3/uL (0.8-4.8) 04/15/24 21:01 [place] # (Auto) 0.5 10^3/uL (0.2-0.9) 04/15/24 21:01 Eos # (Auto) 0.2 10^3/uL (0.0-0.8) 04/15/24 21:01 Baso # (Auto) 0.0 10^3/uL (0.0-0.1) 04/15/24 21:01 Nucleated RBC % (auto) 0 % 04/15/24 21:01 Nucleated RBCs # 0.0 /100WBC 04/15/24 21:01 Sodium 138 mmol/L (136-145) 04/15/24 21:01 Potassium 4.5 mmol/L (3.5-5.1) 04/15/24 21:01 Chloride 101 mmol/L (98-107) 04/15/24 21:01 Carbon Dioxide 26 mmol/L (22-29) 04/15/24 21:01 Anion Gap 15.5 (5-19) 04/15/24 21:01 BUN 16 mg/dL (8-23) 04/15/24 21:01 Creatinine 1.0 mg/dL (0.5-0.9) H 04/15/24 21:01 GFR Calculation Not Reportable 04/15/24 21:01 Glucose 142 mg/dL (65-115) H 04/15/24 21:01 Calculated Osmolality 290 mOsm/kg (285-295) 04/15/24 21:01 Calcium 9.2 mg/dL (8.5-10.5) 04/15/24 21:01 Total Bilirubin 1.0 mg/dL (0.15-1.2) 04/15/24 21:01 AST 19 U/L (0-32) 04/15/24 21:01 ALT 15 U/L (0-33) 04/15/24 21:01 Alkaline Phosphatase 77 U/L (35-105) 04/15/24 21:01 Total Protein 7.4 g/dL (6.6-8.7) 04/15/24 21:01 Albumin 4.1 g/dL (3.5-5.2) 04/15/24 21:01 Globulin 3.3 g/dL (1.3-4.6) 04/15/24 21:01 All radiology interpretation(s) finalized by discharge EKG Data EKG 1: I personally reviewed and interpreted this EKG as follows: EKG interpretation date: 04/15/24 EKG interpretation time: 20:47 Interpretation: nsr hr [address] or t wave abnormalities qrs 107 qtc 440 Discharge Plan Discharge Patient Disposition: Home Clinical Impression: Dizziness Condition: Stable Prescriptions: New meclizine 50 mg tablet 50 mg PO BID PRN (Reason: dizziness) Qty: 14 0RF No Action PreserVision AREDS [id number] capsule 1 cap PO BID@ metformin 500 mg tablet 500 mg PO BID aspirin 81 mg tablet,delayed release (DR/EC) 81 mg PO DAILY Qty: 90 3RF losartan 25 mg tablet 25 mg PO DAILY Qty: 90 3RF biotin 1,000 mcg tablet,chewable 1,000 mcg PO DAILY@07 potassium chloride 10 mEq tablet extended release 10 meq PO DAILY@07 Adults Multivitamin 18 mg iron-400 mcg-25 mcg tablet 1 tab PO DAILY@07 duloxetine [Cymbalta] 30 mg capsule,delayed release(DR/EC) 60 mg PO DAILY@2300 clopidogrel 75 mg tablet 75 mg PO DAILY Qty: 90 3RF simvastatin 10 mg tablet 10 mg PO DAILY famotidine 20 mg tablet 20 mg PO BID ferrous sulfate 325 mg (65 mg iron) tablet 325 mg PO DAILY hydrocodone-acetaminophen 5-325 mg tablet 1 tab PO TID PRN (Reason: pain) 30 Days Qty: 90 0RF Rx Instructions: may fill 30 days after previous refill. metoprolol tartrate 25 mg tablet 25 mg PO BID@0900,2100 Qty: 180 3RF (DME) glucometer testing kit See Rx Instructions .Route .MEDSUPPLY Qty: 1 0RF Rx Instructions: glucometer testing kit strips#100 lancets#100 check BS TID with meals nitroglycerin 0.4 mg Tablet, Sublingual 0.4 mg sublingual Q5M PRN (Reason: Chest Pain) Qty: 30 1RF Discharge Orders: Discharge ED (Routine); Ordered 04/15/24 Ordered By: Arnaldo Russell Referrals: Ofelia Rodriguez MD [Primary Care Provider] - 4-7 days Discharge Diet: Advance as tolerated Discharge Activity: Resume usual activity Patient Instructions: Dizziness (ED) Coding Level of Care Code ED Darkroom Technician for Chalo Barksdale
[2024-04-15 22:35] VITALS: BP 122/63; PULSE 75; RESP 18; TEMP 36.7; O2SAT 96
== END 2024-04-15 22:36 | disposition home or self-care (01) ==
PROVIDERS: Emergency Provider Emergency Medicine; PCP Family Medicine
DX: R42 Dizziness and giddiness (principal); Z79.82 Long term (current) use of aspirin; Z79.84 Long term (current) use of oral hypoglycemic drugs; Z79.02 Long term (current) use of antithrombotics/antiplatelets; Z87.891 Personal history of nicotine dependence; I25.2 Old myocardial infarction
CPT/HCPCS: 70450; 71045; 80053; 85025; 93005; 96360; 99285; J7030; J8597

== ENCOUNTER → 2024-07-07 12:47 | Outpatient (BNVA) | payer MEDICARE, SELFPAY | PROVIDERS: PCP Family Medicine; Visit Provider Internal Medicine | DX: I25.10 Atherosclerotic heart disease of native coronary artery without angina pectoris (principal); E11.9 Type 2 diabetes mellitus without complications; Z79.84 Long term (current) use of oral hypoglycemic drugs | CPT/HCPCS: 99214 ==

== ENCOUNTER 2024-12-26 10:12 | Outpatient (CLI) | payer MEDICARE, SELFPAY ==
--- NOTE | 2024-12-26 | MM_ITS ---
WS: [id number] BILATERAL 3D TOMOSYNTHESIS DIGITAL SCREENING MAMMOGRAPHY WITH CAD CLINICAL INFORMATION: ANNUAL SCREENING HISTORY: Screening mammogram. No current complaints. COMPARISON: 2023 TECHNIQUE: Bilateral CC and MLO views. FINDINGS: Scattered fibroglandular densities bilaterally. No suspicious focal mass, asymmetry, calcifications, or architectural distortion. No evidence of malignancy. Vascular calcification. MM/MM [facility] tomosynthesis [id number] IMPRESSION: DENSITY: There are scattered areas of fibroglandular density. BI-RADS: 2 - Benign. FOLLOW UP: 1 Year Follow-up Recommend return to annual screening mammography.
== END 2024-12-26 10:13 | disposition home or self-care (01) ==
PROVIDERS: PCP Family Medicine; Visit Provider Family Medicine
DX: Z12.31 Encounter for screening mammogram for malignant neoplasm of breast (principal); R92.323 Mammographic fibroglandular density, bilateral breasts; R92.1 Mammographic calcification found on diagnostic imaging of breast
CPT/HCPCS: 77063; 77067

== ENCOUNTER → 2025-03-19 09:52 | Outpatient (BNVA) | payer MEDICARE, SELFPAY | PROVIDERS: PCP Family Medicine; Visit Provider Family Medicine | DX: Z11.4 Encounter for screening for human immunodeficiency virus [HIV] (principal); E11.9 Type 2 diabetes mellitus without complications; Z11.59 Encounter for screening for other viral diseases | CPT/HCPCS: 80053; 80061; 82043; 83036; 85025; 86803; 87389 ==

== ENCOUNTER → 2025-04-06 12:44 | Outpatient (BNVA) | payer MEDICARE, SELFPAY | PROVIDERS: PCP Family Medicine; Visit Provider Internal Medicine | DX: I25.119 Atherosclerotic heart disease of native coronary artery with unspecified angina pectoris (principal); E11.9 Type 2 diabetes mellitus without complications; Z87.891 Personal history of nicotine dependence; Z79.84 Long term (current) use of oral hypoglycemic drugs | CPT/HCPCS: 99214 ==

== ENCOUNTER → 2025-07-03 07:27 | Outpatient (BNVA) | payer MEDICARE, SELFPAY | PROVIDERS: PCP Family Medicine; Visit Provider Emergency Medicine | DX: R39.9 Unspecified symptoms and signs involving the genitourinary system (principal) | CPT/HCPCS: 81000; 87086 ==

== ENCOUNTER → 2025-09-01 10:41 | Outpatient (BNVA) | payer MEDICARE, SELFPAY | PROVIDERS: PCP Family Medicine; Visit Provider Family Medicine | DX: E11.9 Type 2 diabetes mellitus without complications (principal) | CPT/HCPCS: 80053; 83036 ==

== ENCOUNTER 2025-09-02 14:28 | Outpatient (CLI) | payer MEDICARE, SELFPAY ==
--- NOTE | 2025-09-02 14:31 | XRR_ITS ---
PROCEDURE INFORMATION: Exam: XR Cervical Spine Exam date and time: 09/02/2025 2:37 PM Age: 80 years old Clinical indication: Neck pain; Pain in lower neck that radiates into shoulders x few months. ; Additional info: Chronic neck pain / headaches TECHNIQUE: Imaging protocol: Radiologic exam of the cervical spine. Views: 2 or 3 views. COMPARISON: CT head wo con* [id number] 04/15/2024 9:23 PM FINDINGS: Bones/joints: Anatomic alignment of the cervical spine. Multilevel degenerative facet hypertrophy. No fracture. Soft tissues: Unremarkable. XR/XR cervical spine 3V* [id number] IMPRESSION: Degenerative changes of the cervical spine.
== END 2025-09-02 14:29 | disposition home or self-care (01) ==
LOC: RAD 14:28
PROVIDERS: PCP Family Medicine; Visit Provider Family Medicine
DX: M54.2 Cervicalgia (principal); G89.29 Other chronic pain; R51.9 Headache, unspecified; M47.892 Other spondylosis, cervical region
CPT/HCPCS: 72040